=== PATIENT | female | born 1955 | race African-American/Black ===

== ENCOUNTER 2019-06-12 09:01 | Emergency (ER) | payer OTHER, SELFPAY ==
--- OUTSIDE RECORDS SUMMARY | 2019-06-12 09:02 | XMS REPORT | Clinical Summary ---
:1955 Author Organization [facility] Address [address] [place] [address] Care Team Providers Name Role Phone Roni Andres MD Primary Care Provider Allergies Active Allergy Reactions Severity Noted Date Comments Penicillins Itching Medium 04/18/2016 Sulfa (Sulfonamide Antibiotics) Itching Medium 04/18/2016 Medications Medication Sig Dispensed Refills Start Date End Date Status losartan-hydrochloroth Take 1 tablet by 0 Active iazide (HYZAAR) 100-25 mouth daily. mg per tablet Active Problems Problem Noted Date GI bleed 04/18/2016 Social History Tobacco Use Types Packs/Day Years Used Date Never Assessed Sex Assigned at Date Recorded Not on file Job Start Date Occupation Industry Not on file Not on file Not on file Travel History Travel Start Travel End No recent travel history available. Last Filed Vital Signs Not on file Plan of Treatment Health Maintenance Due Date Last Done Comments CERVICAL CANCER SCREENING 1975 BREAST CANCER SCREENING 02/27/2004 SHINGLES VACCINES (#1) 02/27/2004 65+ PNEUMOCOCCAL VACCINE (1 of 2 - PCV13) 2019 INFLUENZA VACCINE 05/06/2019 COLONOSCOPY SCREENING 04/22/2026 04/22/2016 Results Not on fileafter 06/11/2018 Advance Directives For more information, please contact: [phone] Type Date Recorded Patient Member Certification Manager Explanation Advance Directives, Living Will and Medical Power of Aircraft Design Engineer
[2019-06-12 09:32] LABS: Basophils % 1.8 % (0-1.3); Hematocrit 36.7 % (36.0-45.0); Lymphocytes % 48.4 % (15.3-44.8); MPV 9.4 fL (7.6-11.3); RBC Red Blood Cell Count 3.82 M/uL (3.86-4.86)
[2019-06-12 09:33] LABS: Protime INR 1.07
[2019-06-12 11:01] LABS: Albumin 3.7 g/dL (3.4-5.0); Bilirubin Direct 0.2 mg/dL (0-0.2); Bilirubin Total 0.7 mg/dL (0.2-1.0); Potassium 3.5 mmol/L (3.5-5.1); Protein, Total 7.2 g/dL (6.4-8.2)
--- NOTE | 2019-06-12 11:34 | RAD REPORT ---
EXAM DESCRIPTION: CT - Abdomen Pelvis W Contrast - 06/12/2019 11:21 am CLINICAL HISTORY: lower abd pain, bloody stools COMPARISON: CT imaging April 2016 TECHNIQUE: Biphasic, helical CT imaging of the abdomen and pelvis was performed following 100 ml non -ionic IV contrast. No oral contrast administered. All CT scans are performed using dose optimization technique as appropriate and may include automated exposure control or mA/KV adjustment according to patient size. FINDINGS: No suspicious findings in the lung bases. Liver shows fatty infiltration pattern with no focal liver lesion. Liver size is upper normal. No lu creatic abnormality. Gallbladder and biliary tree show no suspicious findings. Spleen is normal size. A 2.3 centimeter round low-density mass is present in the inferior most aspect of the spleen. This i s not clearly seen in 2016. Symmetric renal function is seen with no hydronephrosis or suspicious renal mass. No pyelonephritis o r acute parenchymal process. Nonobstructing calculi seen in the lower pole of the left kidney. No adr enal abnormalities. Rectum and distal sigmoid colon are decompressed. Distal sigmoid anastomotic site shows no wall thick ening or mass. No gross evidence for AA rectal wall mass. No stranding or edema in the perirectal fat . Diverticulosis is minimal. An acute colon process is not evident. The appendix is normal. Stomach a nd small bowel show no acute findings. No free air, free fluid or inflammatory stranding. No hernia, mass or bulky lymphadenopathy. Disc and bony degenerative changes are present. No pathologic bone process seen. Arterial tree calcif ications are present. IMPRESSION: No acute colon finding seen. Diverticulosis is minimal. No abnormality to explain rectal bleeding symptoms. Overall no acute GI process seen. Follow-up colonoscopy would be recommended. Small round low-density mass in the inferior aspect of the spleen. As an isolated finding on this aron dy this is not regarded as significant. Fatty infiltration of the liver.
--- NOTE | 2019-06-12 12:33 | ER ---
Nurse's Notes [facility] Name: Toshia Armenta Age: 64 yrs Sex: Female : 1955 Arrival Date: 06/12/2019 Time: 09:02 Bed 6 Private MD: Diagnosis: Lower Gastrointestinal bleeding;Diverticulosis Presentation: 06/12 09:02 Presenting complaint: EMS states: Pt reports having bloody bowel movements x 3 this ph morning, states that there was bright red blood w/ clots present, denies abdominal pain or N/V, hx of diverticulitis. Transition of care: patient was not received from another setting of care. Onset of symptoms was June 12, 2019. Risk Assessment: Do you want to hurt yourself or someone else? Patient reports no desire to harm self or others. Initial Sepsis Screen: Does the patient meet any 2 criteria? No. Patient's initial sepsis screen is negative. Does the patient have a suspected source of infection? No. Patient's initial sepsis screen is negative. Care prior to arrival: IV initiated. 20 GA, in the right hand. 09:02 Method Of Arrival: EMS: [facility] ph 09:02 Acuity: CHARLI 3 ph Historical: - Allergies: 09:08 Sulfa (Sulfonamide Antibiotics); ph 09:08 PENICILLINS; ph - Home Meds: 09:08 gabapentin 600 mg oral tab 1 tab twice a day [Active]; losartan 100 mg oral tab 1 tab ph once daily [Active]; celecoxib 200 mg Oral cap 1 cap 2 times per day [Active]; - PMHx: 09:08 Diverticulitis; Hypertension; Nerve pain; ph - Immunization history:: Adult Immunizations unknown. - Social history:: Smoking status: Patient/guardian denies using tobacco. - Ebola Screening: : No symptoms or risks identified at this time. - Family history:: not pertinent. - Hospitalizations: : No recent hospitalization is reported. Screenin:15 Abuse screen: Denies threats or abuse. Denies injuries from another. Nutritional ph screening: No deficits noted. Tuberculosis screening: No symptoms or risk factors identified. Fall Risk None identified. Assessment: 09:13 General: Appears in no apparent distress. comfortable, obese, well groomed, Behavior is ph calm, cooperative, appropriate for age, Denies fever, feeling ill. Pain: Denies pain. Neuro: Level of Consciousness is awake, alert, obeys commands, Oriented to person, place, time, situation, Denies weakness dizziness. Cardiovascular: Denies chest pain, lightheadedness, nausea, shortness of breath, Capillary refill < 3 seconds in bilateral fingers Patient's skin is warm and dry. Respiratory: Airway is patent Respiratory effort is even, unlabored, Respiratory pattern is regular, symmetrical, Denies shortness of breath. GI: Abdomen is round non-distended, Reports bloody stool, Patient currently denies nausea, vomiting. Derm: Skin is intact, Skin is pink, warm \T\ dry. Musculoskeletal: Circulation, motion, and sensation intact. Range of motion: intact in all extremities. 10:31 Reassessment: Patient appears in no apparent distress at this time. Patient and/or ph family updated on plan of care and expected duration. Pain level reassessed. Patient is alert, oriented x 3, equal unlabored respirations, skin warm/dry/pink. Pt up to bedside commode for BM, jessi blood noted, pt now resting quietly in bed w. stable VS, denies pain or nausea, awaiting lab results and CT scan, family at bedside. 11:30 Reassessment: Patient appears in no apparent distress at this time. Patient and/or ph family updated on plan of care and expected duration. Pain level reassessed. Patient is alert, oriented x 3, equal unlabored respirations, skin warm/dry/pink. 12:59 Reassessment: Patient appears in no apparent distress at this time. Patient and/or ph family updated on plan of care and expected duration. Pain level reassessed. Patient is alert, oriented x 3, equal unlabored respirations, skin warm/dry/pink. Pt d/c home w/ family. Vital Signs: 09:15 BP 127 / 76; Pulse 84; Resp 18; Temp 97.7; Pulse Ox 96% on R/A; Weight 111.13 kg; ph Height 5 ft. 2 in. (157.48 cm); Pain 0/10; 10:30 BP 123 / 83; Pulse 78; Resp 18; Pulse Ox 95% on R/A; Pain 0/10; ph 09:15 Body Mass Index 44.81 (111.13 kg, 157.48 cm) ph ED Course: 09:02 Patient arrived in ED. ph 09:03 Duane Galloway MD is Attending Physician. rn 09:04 Triage completed. ph 09:10 Radiology exam delayed due to lab results not completed at this time. (BUN/Creatinine). kw1 09:13 Arm band placed on Patient placed in an exam room, on a stretcher. ph 09:14 Patient has correct armband on for positive identification. Placed in gown. Bed in low ph position. Call light in reach. Side rails up X2. credentialer on. Pulse ox on. NIBP on. Door closed. Noise minimized. Warm blanket given. Head of bed elevated. 09:24 Ambar Escoto, RN is Primary Nurse. ph 09:37 Initial lab(s) drawn, by nh, sent to lab. Maintain EMS IV. Dressing intact. 5 09:38 Protime (+inr) Sent. 5 09:38 Ptt, Activated Sent. mh5 09:38 Type And Screen Sent. mh5 09:38 Basic Metabolic Panel Sent. mh5 09:38 CBC with Diff Sent. 5 09:38 Creatinine for Radiology Sent. 5 09:38 Hepatic Function Sent. mh5 09:38 Lipase Sent. mh5 10:36 Radiology exam delayed due to lab results not completed at this time. (BUN/Creatinine). kw1 11:21 CT completed. Patient tolerated procedure well. Patient moved back from CT. mw3 11:22 CT Abd/Pelvis - IV Contrast Only In Process Unspecified. EDMS 13:00 No provider procedures requiring assistance completed. IV discontinued, intact, ph bleeding controlled, No redness/swelling at site. Pressure dressing applied. Administered Medications: No medications were administered Outcome: 12:32 Discharge ordered by . rn 13:00 Discharged to home ambulatory, with family. ph 13:00 Condition: good 13:00 Discharge instructions given to patient, Instructed on discharge instructions, follow up and referral plans. Demonstrated understanding of instructions, follow-up care. 13:01 Patient left the ED. ph Signatures: Dispatcher [employer] EDMS Duane Galloway MD MD rn Hall, Patricia, RN RN ph Martinez, Maria 5 Elizabeth Pike kw1 May Shields mw3 Corrections: (The following items were deleted from the chart) 10:31 09:15 BP 127 / 76; Resp 18bpm; Temp 97.7F; 111.13 kg; Height 5 ft. 2 in.; BMI: 44.8; ph Pain 0/10; ph
--- NOTE | 2019-06-12 12:34 | EDPHYS ---
Physician Documentation [facility] Name: Toshia Armenta Age: 64 yrs Sex: Female : 1955 Arrival Date: 06/12/2019 Time: 09:02 Bed 6 Private MD: ED Physician Duane Galloway HPI: 06/12 09:19 This 64 yrs old Black Female presents to ER via EMS with complaints of Bloody Stools. rn 09:19 The patient presents to the emergency department with rectal bleeding, a small amount, rn bright red blood with bowel movement. Onset: The symptoms/episode began/occurred this morning. Modifying factors: The symptoms are alleviated by nothing, the symptoms are aggravated by. Severity of symptoms: At their worst the symptoms were mild in the emergency department the symptoms are unchanged. The patient has experienced similar episodes in the past. Reports diverticulitis in past, this happens every 6 years or so, reports 3 bloody bowel movements this AM, otherwise feels ok, no sob/chest pain/lightheaded. NO hematemesis, not on blood thinners. . Historical: - Allergies: 09:08 Sulfa (Sulfonamide Antibiotics); ph 09:08 PENICILLINS; ph - Home Meds: 09:08 gabapentin 600 mg oral tab 1 tab twice a day [Active]; losartan 100 mg oral tab 1 tab ph once daily [Active]; celecoxib 200 mg Oral cap 1 cap 2 times per day [Active]; - PMHx: 09:08 Diverticulitis; Hypertension; Nerve pain; ph - Immunization history:: Adult Immunizations unknown. - Social history:: Smoking status: Patient/guardian denies using tobacco. - Ebola Screening: : No symptoms or risks identified at this time. - Family history:: not pertinent. - Hospitalizations: : No recent hospitalization is reported. ROS: 09:19 Constitutional: Negative for fever, chills, and weight loss, Eyes: Negative for injury, rn pain, redness, and discharge, Neck: Negative for injury, pain, and swelling, Cardiovascular: Negative for chest pain, palpitations, and edema, Respiratory: Negative for shortness of breath, cough, wheezing, and pleuritic chest pain, Abdomen/GI: Negative for nausea, vomiting, diarrhea, and constipation, MS/Extremity: Negative for injury and deformity, Skin: Negative for injury, rash, and discoloration, Neuro: Negative for headache, weakness, numbness, tingling, and seizure. Exam: 09:19 Constitutional: This is a well developed, well nourished patient who is awake, alert, rn and in no acute distress. Head/Face: Normocephalic, atraumatic. Eyes: Pupils equal round and reactive to light, extra-ocular motions intact. Lids and lashes normal. Conjunctiva and sclera are non-icteric and not injected. Cornea within normal limits. Periorbital areas with no swelling, redness, or edema. ENT: MMM Cardiovascular: Regular rate and rhythm. No pulse deficits. Respiratory: Lungs have equal breath sounds bilaterally, clear to auscultation. No increased work of breathing, no retractions or nasal flaring. Abdomen/GI: soft, mild LLQ tenderness, no masses, no rebound MS/ Extremity: Pulses equal, no cyanosis. Neurovascular intact. Full, normal range of motion. Equal circumference. Neuro: Awake and alert, GCS 15, oriented to person, place, time, and situation. Cranial nerves II-XII grossly intact. Motor strength 5/5 in all extremities. Sensory grossly intact. Cerebellar exam normal. Vital Signs: 09:15 BP 127 / 76; Pulse 84; Resp 18; Temp 97.7; Pulse Ox 96% on R/A; Weight 111.13 kg; ph Height 5 ft. 2 in. (157.48 cm); Pain 0/10; 10:30 BP 123 / 83; Pulse 78; Resp 18; Pulse Ox 95% on R/A; Pain 0/10; ph 09:15 Body Mass Index 44.81 (111.13 kg, 157.48 cm) ph MDM: 09:03 Patient medically screened. rn 12:27 Differential diagnosis: diverticulitis, diverticulosis, internal hemorrhoids. Data rn reviewed: vital signs, nurses notes, lab test result(s), radiologic studies, and as a result, I will discharge patient. Counseling: I had a detailed discussion with the patient and/or guardian regarding: the historical points, exam findings, and any diagnostic results supporting the discharge/admit diagnosis, lab results, radiology results, the need for outpatient follow up, to return to the emergency department if symptoms worsen or persist or if there are any questions or concerns that arise at home. Special discussion: Based on the history and exam findings, there is no indication for further emergent testing or inpatient evaluation. I discussed with the patient/guardian the need to see the track watchman for further evaluation of the symptoms. ED course: Spoke at length with patient. H/H normal, normal vitals, denies further episodes of bleeding. No acute findings on CT. Most likely either diverticulosis or internal hemorrhoid, no AVM, causing bleed. NO GI here to observe patient, and with normal w/u cannot get her transferred to another hospital. She has seen Dr. vasquez in past, I checked and he is out of town. I also checked with Dr. Cherry to see if he could scope her and states not yet set up for scopes at this hospital. Gave strict return precautions. Daughter is nurse and all questions answered. . 06/12 09:05 Order name: Basic Metabolic Panel; Complete Time: 11:09 rn 06/12 09:05 Order name: CBC with Diff; Complete Time: 10:15 rn 06/12 09:05 Order name: Creatinine for Radiology; Complete Time: 11: rn 06/12 09:05 Order name: Hepatic Function; Complete Time: 11: rn 06/12 09:05 Order name: Lipase; Complete Time: 11: rn 06/12 09:06 Order name: Type And Screen rn 06/12 09:05 Order name: IV Saline Lock; Complete Time: 09:13 rn 06/12 09:05 Order name: Labs collected and sent; Complete Time: 09:13 rn 06/12 09:05 Order name: CT Abd/Pelvis - IV Contrast Only; Complete Time: 11:36 rn 06/12 09:06 Order name: Protime (+inr); Complete Time: 10:15 rn 06/12 09:06 Order name: Ptt, Activated; Complete Time: 10:15 rn 06/12 09:34 Order name: Labs - recollect needed; Complete Time: 10:30 bd Administered Medications: No medications were administered Disposition: 06/12/19 12:32 Discharged to Home. Impression: Lower Gastrointestinal bleeding, Diverticulosis. - Condition is Stable. - Discharge Instructions: Diverticulosis, Gastrointestinal Bleeding. - Medication Reconciliation Form, Thank You Letter, Antibiotic Education, Prescription Opioid Use form. - Follow up: Private Physician; When: As needed; Reason: Recheck today's complaints, Re-evaluation by your physician. - Problem is new. - Symptoms have improved. Signatures: Dispatcher [employer] EDMS Demi Edouard Duane Redding MD MD rn Hall, Patricia, RN RN ph Corrections: (The following items were deleted from the chart) 12:29 09:19 Constitutional: This is a well developed, well nourished patient who is awake, rn alert, and in no acute distress. Head/Face: Normocephalic, atraumatic. Eyes: Pupils equal round and reactive to light, extra-ocular motions intact. Lids and lashes normal. Conjunctiva and sclera are non-icteric and not injected. Cornea within normal limits. Periorbital areas with no swelling, redness, or edema. ENT: MMM Cardiovascular: Regular rate and rhythm. No pulse deficits. Respiratory: Lungs have equal breath sounds bilaterally, clear to auscultation. No increased work of breathing, no retractions or nasal flaring. Abdomen/GI: soft, mild LLQ tenderness, no masses, no rebound MS/ Extremity: Pulses equal, no cyanosis. Neurovascular intact. Full, normal range of motion. Equal circumference. Neuro: Awake and alert, GCS 15, oriented to person, place, time, and situation. Cranial nerves II-XII grossly intact. Motor strength 5/5 in all extremities. Sensory grossly intact. Cerebellar exam normal. rn 12:32 12:27 ED course: Spoke at length with patient. H/H normal, normal vitals, denies rn further episodes of bleeding. No acute findings on CT. Most likely either diverticulosis or internal hemorrhoid, no AVM, causing bleed. . rn 13:01 12:32 06/12/2019 12:32 Discharged to Home. Impression: Lower Gastrointestinal bleeding; ph Diverticulosis. Condition is Stable. Forms are Medication Reconciliation Form, Thank You Letter, Antibiotic Education, Prescription Opioid Use. Follow up: Private Physician; When: As needed; Reason: Recheck today's complaints, Re-evaluation by your physician. Problem is new. Symptoms have improved. rn
[2019-06-12 14:12] VITALS: TEMP 97.7
[2019-06-12 14:13] VITALS: BP 123/83; O2SAT 95
== END 2019-06-12 13:01 | disposition home or self-care (01) ==
LOC: ER 09:01
DX: K57.90 Diverticulosis of intestine, part unspecified, without perforation or abscess without bleeding (principal); I10 Essential (primary) hypertension; Z88.0 Allergy status to penicillin; Z88.2 Allergy status to sulfonamides
CPT/HCPCS: 36415; 74177; 80048; 80076; 83690; 85025; 85610; 85730; 86850; 86900; 86901; 99285; Q9967

== ENCOUNTER 2020-02-14 12:04 | Inpatient (IN) | payer OTHER ==
--- OUTSIDE RECORDS SUMMARY | 2020-02-14 12:08 | XMS REPORT | Clinical Summary ---
:1955 Author Organization [facility] Address [address] [place] [address] Care Team Providers Name Role Phone Roni Andres MD Primary Care Provider Allergies Active Allergy Reactions Severity Noted Date Comments Penicillins Itching Medium 04/18/2016 Sulfa (Sulfonamide Antibiotics) Itching Medium 6 Medications Medication Sig Dispensed Refills Start Date [...] of 2 - PCV13) 2019 INFLUENZA VACCINE 05/06/2020 COLONOSCOPY SCREENING 04/22/2026 04/22/2016 Results Not on fileafter 02/13/2019 Advance Directives For more information, please contact: [phone] Type Date Recorded Patient Wrapping Clerk Explanati on Advance Directives, Living Will and Medical Power of Gas Appliance Adjuster
[2020-02-14 13:43] LABS: Absolute Lymphocytes (CBC) 0.8 K/uL (0.7-4.9); Basophils % 0.4 % (0-1.3); Hematocrit 37.7 % (36.0-45.0); Lymphocytes % 14.2 % (15.3-44.8); MPV 9.1 fL (7.6-11.3); RBC Red Blood Cell Count 3.94 M/uL (3.86-4.86)
[2020-02-14 13:49] LABS: Protime INR 1.14
[2020-02-14 13:58] LABS: ALT/SGPT 39 U/L (12-78); AST/SGOT 51 U/L (15-37); Albumin 3.3 g/dL (3.4-5.0); Alkaline Phosphatase 68 U/L (45-117); Amylase 98 U/L (25-115); BUN Blood Urea Nitrogen 55 mg/dL (7-18); Bicarbonate 28 mmol/L (21-32); Bilirubin Direct 0.2 mg/dL (0-0.2); Bilirubin Total 0.5 mg/dL (0.2-1.0); CKMB Creatine Kinase MB < 1.0 ng/mL (0.3-3.6); Creatine Phosphokinase 218 U/L (26-192); Glucose Level 131 mg/dL (74-106); Lipase 138 U/L (73-393); Potassium 3.6 mmol/L (3.5-5.1); Protein, Total 8.6 g/dL (6.4-8.2); Sodium Level 137 mmol/L (136-145); Troponin (Emerg Dept Use Only) < 0.02 ng/mL (0.0-0.045)
[2020-02-14] MEDS ORDERED: ACETAMINOPHEN 500 MG TAB ONE (14:08)
[2020-02-14] MEDS ORDERED: IBUPROFEN 400 MG TAB ONE (14:08)
[2020-02-14] MEDS ORDERED: NA CHLORIDE 0.9% 3,000 ML ONE (14:08)
[2020-02-14] MEDS ORDERED: IBUPROFEN 200 MG TAB PO ONE (14:08)
[2020-02-14] MEDS ORDERED: CEFTRIAXONE/SWI 1gm 2 GM/20 ML SYR ONE (14:08)
[2020-02-14] MEDS ORDERED: AZITHROMYCIN IV 500 MG in NA CHLORIDE 0.9% 250 ML IVPB ONE (14:15)
--- NOTE | 2020-02-14 14:25 | RAD REPORT ---
EXAM DESCRIPTION: Kristine Single View02/14/2020 2:12 pm CLINICAL HISTORY: sob COMPARISON: 2016 FINDINGS: [id number] bilateral pulmonary opacities. The heart is mildly enlarged IMPRESSION: These findings may indicate CHF
--- NOTE | 2020-02-14 14:32 | ER ---
Nurse's Notes [facility] Name: Toshia Armenta Age: 64 yrs Sex: Female : 1955 Arrival Date: 02/14/2020 Time: 12:09 Bed 18 Private MD: Roni Galvan R Diagnosis: Dyspnea;Hypoxemia;Pneumonia due to other specified bacteria-bilateral pna;Fever, unspecified;Unspecified kidney failure;Coronavirus as the cause of diseases classified elsewhere-covid 19 , bilateral pna Presentation: 02/13 12:53 Chief complaint: Patient states: Weakness, Fever, Cough and SOB x 4 days. Reports ca1 diarrhea x 2 days. Tested for Covid -19 4 days ago, pending result. Reports family living with pt tested POSITIVE for Covid-19. Coronavirus screen: Surgical mask placed on patient. Patient moved to private room, placed in contact and droplet isolation with eye protection until further assessment. Patient reports a cough. Patient reports shortness of breath or difficulty breathing. Patient reports a measured and/or subjective temperature greater than 100.4F. Patient denies travel on a cruise ship or to a country the [facility] currently lists as an affected area. Patient reports contact with known and/or suspected case of COVID-19. Ebola Screen: Patient negative for fever greater than or equal to 101.5 degrees Fahrenheit, and additional compatible Ebola Virus Disease symptoms Patient denies exposure to infectious person. Patient denies travel to an Ebola-affected area in the 21 days before illness onset. No symptoms or risks identified at this time. Initial Sepsis Screen: Does the patient meet any 2 criteria? RR > 20 per min. Temp <36.0*C (96.8*F)) or > 38.3*C (100.9*F). Yes Does the patient have a suspected source of infection? Yes: Productive cough/pneumonia If YES to both, name of provider notified: Meño Carrasco MD. Risk Assessment: Do you want to hurt yourself or someone else? Patient reports no desire to harm self or others. Onset of symptoms was February 14, 2020. 12:53 Method Of Arrival: Wheelchair ca1 12:53 Acuity: CHARLI 2 ca1 Triage Assessment: 13:05 Respiratory: Onset: The symptoms/episode began/occurred "over a week now", the patient tw2 has severe shortness of breath. Historical: - Allergies: 12:57 PENICILLINS; ca1 12:57 Sulfa (Sulfonamide Antibiotics); ca1 - PMHx: 12:57 Diverticulitis; Hypertension; nerve pain; ca1 - Immunization history:: Adult Immunizations up to date. - Social history:: Smoking status: Patient denies any tobacco usage or history of. Screenin:06 Abuse screen: Denies threats or abuse. Nutritional screening: No deficits noted. tw2 Tuberculosis screening: No symptoms or risk factors identified. Fall Risk None identified. Assessment: 13:10 General: Appears uncomfortable, obese, Behavior is calm, cooperative, appropriate for tw2 age. Pain: Denies pain. Neuro: Level of Consciousness is awake, alert, obeys commands, Oriented to person, place, time, situation. Cardiovascular: Rhythm is. Cardiovascular: Heart tones S1 S2 Patient's skin is warm and dry. Respiratory: Reports shortness of breath at rest on exertion since "for a week now" cough that is productive, Airway is patent Respiratory effort is even, labored, Respiratory pattern is regular, tachypnea Breath sounds are diminished bilaterally. GI: Abdomen is round obese, Bowel sounds present X 4 quads. : No signs and/or symptoms were reported regarding the genitourinary system. EENT: Reports nasal congestion nasal discharge. Derm: No signs and/or symptoms reported regarding the dermatologic system. Musculoskeletal: Range of motion: intact in all extremities. 13:23 Reassessment: Pt reports he had COVID-19 test completed on at [facility] aa5 outpatient. Spoke to [facility] Saff and they stated to contact [facility] for results. Spoke to [facility] and they stated results are back and they will contact patient with result in just a few minutes. . 13:42 Reassessment: Faxed Medical Release of Information to [facility] aa requesting COVID-19 result. . 14:32 Reassessment: Spoke to [facility] and stated they did not receive fax. aa5 Medical Release of Information requesting COVID-19 result was faxed to [facility].. 15:30 Reassessment: No changes from previously documented assessment. Patient and/or family tw2 updated on plan of care and expected duration. Pain level reassessed. 16:01 Reassessment: Fax received from Ricky blackwell [facility], COVID-19 result: aa5 detected, positive. BROOM BUNDLER notified. . 16:30 Reassessment: No changes from previously documented assessment. Patient and/or family tw2 updated on plan of care and expected duration. Pain level reassessed. 17:11 Reassessment: No changes from previously documented assessment. Patient and/or family tw2 updated on plan of care and expected duration. Pain level reassessed. 17:54 Reassessment: No changes from previously documented assessment. Patient and/or family tw2 updated on plan of care and expected duration. Pain level reassessed. Vital Signs: 12:53 BP 102 / 51; Pulse 81; Resp 22 S; Temp 103.1; Pulse Ox 84% on R/A; Weight 113.4 kg (R); ca1 Height 5 ft. 6 in. (167.64 cm) (R); 13:40 BP 105 / 58; Pulse 76; Resp 17; Pulse Ox 97% on 2 lpm NC; tw2 14:30 BP 112 / 75; Pulse 76; Resp 17; Pulse Ox 95% on 2 lpm NC; tw2 15:30 BP 99 / 70; Pulse 77; Resp 20; Temp 100(O); Pulse Ox 100% on 2 lpm NC; tw2 16:30 BP 103 / 60; Pulse 73; Resp 19; Pulse Ox 96% on 2 lpm NC; tw2 17:30 BP 100 / 59; Pulse 69; Resp 18; Pulse Ox 97% on 2 lpm NC; tw2 18:30 BP 102 / 57; Pulse 70; Resp 17; Pulse Ox 95% on 2 lpm NC; tw2 12:53 Body Mass Index 40.35 (113.40 kg, 167.64 cm) ca1 ED Course: 12:09 Patient arrived in ED. as 12:10 Roni Galvan MD is Private Physician. as 12:57 Triage completed. ca1 12:57 Arm band placed on right wrist. ca1 12:57 Bed in low position. Call light in reach. Side rails up X 1. plant electrical engineer on. Pulse tw2 ox on. NIBP on. Head of bed elevated. 12:58 Meño Carrasco MD is Attending Physician. cira 13:10 No provider procedures requiring assistance completed. Inserted saline lock: 20 gauge tw2 in left antecubital area, using aseptic technique. Blood collected. Oxygen administration via nasal cannula \\T\\ 2L/min. 13:24 Chiara Be, RN is Primary Nurse. tw2 14:12 Chest Single View XRAY In Process Unspecified. EDNM 14:30 Álvaro Brasher DO is Hospitalizing Provider. [facility] 15:22 Ricky with [facility] will send covid swab results. aa5 18:55 Report given to NORMAN Neil. tw2 19:24 Patient admitted, IV remains in place. tw2 Administered Medications: 14:45 Drug: NS 0.9% (30 ml/kg) 30 ml/kg Route: IV; Rate: bolus; Site: right antecubital; tw2 19:22 Follow up: IV Status: Infusion continued upon admission; IV Intake: 2000ml tw2 14:45 Drug: Rocephin 2 grams Route: IV; Rate: per protocol; Site: right antecubital; tw2 14:52 Follow up: Response: No adverse reaction; IV Status: Completed infusion tw2 14:45 Drug: Tylenol 1000 mg Route: PO; tw2 19:23 Follow up: Response: No adverse reaction tw2 14:45 Drug: Motrin 600 mg Route: PO; tw2 19:22 Follow up: Response: No adverse reaction; Temperature is decreased tw2 14:52 Drug: Zithromax 500 mg Route: IVPB; Infused Over: 1 hrs; Site: left antecubital; tw2 15:52 Follow up: Response: No adverse reaction; IV Status: Completed infusion tw2 Intake: 19:22 IV: 2000ml; Total: 2000ml. tw2 Outcome: 14:31 Decision to Hospitalize by Provider. [facility] 19:23 Admitted to Med/surg accompanied by nurse, via wheelchair, with oxygen, Report called tw2 to NORMAN Neil 19:23 Condition: stable 19:23 Instructed on the need for admit. 19:24 Patient left the ED. tw2 Signatures: Dispatcher [employer] EDNM Meño Carrasco MD MD cha Martinez, Amelia as Calderon, Audri RN RN aa5 Chiara Be, RN RN tw2 Roxana Lambert RN RN ca1 Corrections: (The following items were deleted from the chart) 12:58 12:53 Initial Sepsis Screen: Does the patient meet any 2 criteria? No. Patient's ca1 initial sepsis screen is negative. Does the patient have a suspected source of infection? No. Patient's initial sepsis screen is negative. ca1 13:00 12:53 BP 102 / 51; Pulse 81bpm; Resp 19bpm; Spontaneous; Pulse Ox 84% RA; Temp 103.1F; ca1 113.4 kg Reported; Height 5 ft. 6 in. Reported; BMI: 40.3; ca1 13:27 13:26 Reassessment: aa5 aa5 16:06 13:42 Reassessment: Faxed Medical Release of Information to [place] [id number] requesting COVID-19 result. . aa5 16:14 13:42 Reassessment: Faxed Medical Release of Information to [place] [id number] requesting COVID-19 result. . aa5
--- NOTE | 2020-02-14 14:32 | EDPHYS ---
Physician Documentation [facility] Name: Toshia Armenta Age: 64 yrs Sex: Female : 1955 Arrival Date: 02/14/2020 Time: 12:09 Bed 18 Private MD: Roni Galvan R ED Physician Meño Carrasco HPI: 02/13 13:53 This 64 yrs old Black Female presents to ER via Wheelchair with complaints of Shortness cira Of Breath, Vomiting, Fever, waiting on COVID results to come back. 13:53 The patient has shortness of breath at rest, with light activity. Onset: The cira symptoms/episode began/occurred 4 day(s) ago. Duration: The symptoms are continuous. The patient's shortness of breath is aggravated by coughing, supine position, walking, is alleviated by elevating head, application of supplemental oxygen. Associated signs and symptoms: Pertinent positives: non-productive cough, dizziness, fever. Severity of symptoms: At their worst the symptoms were moderate in the emergency department the symptoms are unchanged. The patient has experienced similar episodes in the past, multiple times. Historical: - Allergies: 12:57 PENICILLINS; ca1 12:57 Sulfa (Sulfonamide Antibiotics); ca1 - PMHx: 12:57 Diverticulitis; Hypertension; nerve pain; ca1 - Immunization history:: Adult Immunizations up to date. - Social history:: Smoking status: Patient denies any tobacco usage or history of. ROS: 13:54 Eyes: Negative for injury, pain, redness, and discharge, ENT: Negative for injury, cira pain, and discharge, Neck: Negative for injury, pain, and swelling, Cardiovascular: Negative for chest pain, palpitations, and edema, Abdomen/GI: Negative for abdominal pain, nausea, vomiting, diarrhea, and constipation, Back: Negative for injury and pain, : Negative for injury, bleeding, discharge, and swelling, MS/Extremity: Negative for injury and deformity, Skin: Negative for injury, rash, and discoloration, Neuro: Negative for headache, weakness, numbness, tingling, and seizure, Psych: Negative for depression, anxiety, suicide ideation, homicidal ideation, and hallucinations, Allergy/Immunology: Negative for hives, rash, and allergies, Endocrine: Negative for neck swelling, polydipsia, polyuria, polyphagia, and marked weight changes, Hematologic/Lymphatic: Negative for swollen nodes, abnormal bleeding, and unusual bruising. 13:54 Constitutional: Positive for fever. 13:54 Respiratory: Positive for cough, shortness of breath, at rest. Exam: 13:54 Constitutional: This is a well developed, well nourished patient who is awake, alert, cira and in no acute distress. Head/Face: Normocephalic, atraumatic. Eyes: Pupils equal round and reactive to light, extra-ocular motions intact. Lids and lashes normal. Conjunctiva and sclera are non-icteric and not injected. Cornea within normal limits. Periorbital areas with no swelling, redness, or edema. ENT: Nares patent. No nasal discharge, no septal abnormalities noted. Tympanic membranes are normal and external auditory canals are clear. Oropharynx with no redness, swelling, or masses, exudates, or evidence of obstruction, uvula midline. Mucous membranes moist. Neck: Trachea midline, no thyromegaly or masses palpated, and no cervical lymphadenopathy. Supple, full range of motion without nuchal rigidity, or vertebral point tenderness. No Meningismus. Chest/axilla: Normal chest wall appearance and motion. Nontender with no deformity. No lesions are appreciated. Abdomen/GI: Soft, non-tender, with normal bowel sounds. No distension or tympany. No guarding or rebound. No evidence of tenderness throughout. Back: No spinal tenderness. No costovertebral tenderness. Full range of motion. Skin: Warm, dry with normal turgor. Normal color with no rashes, no lesions, and no evidence of cellulitis. MS/ Extremity: Pulses equal, no cyanosis. Neurovascular intact. Full, normal range of motion. Neuro: Awake and alert, GCS 15, oriented to person, place, time, and situation. Cranial nerves II-XII grossly intact. Motor strength 5/5 in all extremities. Sensory grossly intact. Cerebellar exam normal. Normal gait. Psych: Awake, alert, with orientation to person, place and time. Behavior, mood, and affect are within normal limits. 13:54 Cardiovascular: Rate: tachycardic, Rhythm: regular, Pulses: Pulses are 4+ in bilateral radial, brachial, femoral, popliteal, posterior tibial and and dorsalis pedis arteries.. Heart sounds: normal, Edema: is not appreciated, JVD: is not appreciated. 13:54 Musculoskeletal/extremity: DVT Exam: No signs of deep vein thrombosis. no pain, no swelling, no tenderness, negative Homans' sign noted on exam, no appreciated bluish discoloration, no erythema, no increased warmth. 14:54 ECG was reviewed by the Attending Physician. [facility] Vital Signs: 12:53 BP 102 / 51; Pulse 81; Resp 22 S; Temp 103.1; Pulse Ox 84% on R/A; Weight 113.4 kg (R); ca1 Height 5 ft. 6 in. (167.64 cm) (R); 13:40 BP 105 / 58; Pulse 76; Resp 17; Pulse Ox 97% on 2 lpm NC; tw2 14:30 BP 112 / 75; Pulse 76; Resp 17; Pulse Ox 95% on 2 lpm NC; tw2 15:30 BP 99 / 70; Pulse 77; Resp 20; Temp 100(O); Pulse Ox 100% on 2 lpm NC; tw2 16:30 BP 103 / 60; Pulse 73; Resp 19; Pulse Ox 96% on 2 lpm NC; tw2 17:30 BP 100 / 59; Pulse 69; Resp 18; Pulse Ox 97% on 2 lpm NC; tw2 18:30 BP 102 / 57; Pulse 70; Resp 17; Pulse Ox 95% on 2 lpm NC; tw2 12:53 Body Mass Index 40.35 (113.40 kg, 167.64 cm) ca1 MDM: 12:58 Patient medically screened. [facility] 13:57 Data reviewed: vital signs, nurses notes, lab test result(s), EKG, radiologic studies, [facility] plain films. 13:57 Differential diagnosis: asthma, Bronchitis CHF exacerbation, Chronic Obstructive cira Pulmonary Disease viral Infection, bacterial infection, bronchitis, pneumonia pneumonia, Pneumothorax pulmonary edema, reactive airway disease, Sepsis. Antibiotic administration: Rocephin and Zithromax given. Differential Diagnosis altered mental status, sepsis. Immunization status: Pneumococcal vaccine: Influenza vaccine: Data interpreted: optical coating technician: rate is 81 beats/min, rhythm is normal sinus rhythm, Pulse oximetry: on 4L(s) per nasal canula, is 96 %. Counseling: I had a detailed discussion with the patient and/or guardian regarding: the historical points, exam findings, and any diagnostic results supporting the discharge/admit diagnosis, lab results, radiology results, the need for further work-up and treatment in the hospital. 14:26 Test interpretation: by ED physician or midlevel provider: ECG, plain radiologic cira studies. ED course: covid 19 positive exposure. 14:53 ED course: covid 19 positive outpatient, hypoxia, bilateral pna. cira 15:49 ED course: bilateral covid 19 confirmed pneumonia. [facility] 02/13 12:59 Order name: Amylase, Serum; Complete Time: 14:23 ca1 02/13 12:59 Order name: Basic Metabolic Panel; Complete Time: 14:23 ca1 02/13 12:59 Order name: Blood Culture Adult (2) [facility] 02/13 12:59 Order name: CBC with Diff; Complete Time: 14:23 ca1 02/13 12:59 Order name: Ckmb; Complete Time: 14:23 ca1 02/13 12:59 Order name: CPK; Complete Time: 14:23 ca1 02/13 12:59 Order name: Lactate; Complete Time: 15:22 ca1 02/13 12:59 Order name: LFT's; Complete Time: 14:23 [facility] 02/13 12:59 Order name: Lipase; Complete Time: 14: [facility] 02/13 12:59 Order name: Procalcitonin; Complete Time: 14:23 ca1 02/13 12:59 Order name: Protime (+inr); Complete Time: 14:23 [facility] 02/13 12:59 Order name: Ptt, Activated; Complete Time: 14:23 ca1 02/13 12:59 Order name: Troponin (emerg Dept Use Only); Complete Time: 14:23 [facility] 02/13 12:59 Order name: Urine Microscopic Only [facility] 02/13 13:52 Order name: Strep; Complete Time: 15:46 [facility] 02/13 13:52 Order name: Flu; Complete Time: 15:46 [facility] 02/13 13:52 Order name: COVID-19 [facility] 02/13 15:39 Order name: Basic Metabolic Panel EDMS 02/13 15:39 Order name: Basic Metabolic Panel ED[facility] 02/13 15:39 Order name: Basic Metabolic Panel [facility] 02/13 15:39 Order name: CBC with Automated Diff [facility] 02/13 15:39 Order name: CBC with Automated Diff [facility] 02/13 15:39 Order name: CBC with Automated Diff [facility] 02/13 15:39 Order name: Magnesium [facility] 02/13 15:39 Order name: Magnesium [facility] 02/13 15:46 Order name: Throat Culture [facility] 02/13 15:47 Order name: BNP [facility] 02/13 15:55 Order name: Lactic Dehydrogenase [facility] 02/13 15:55 Order name: Ur Protein [facility] 02/13 15:55 Order name: Uric Acid [facility] 02/13 12:59 Order name: Chest Single View XRAY; Complete Time: 14:32 [facility] 02/13 12:59 Order name: Cardiac monitoring; Complete Time: 13:42 [facility] 02/13 12:59 Order name: EKG - Nurse/Tech; Complete Time: 15:02 [facility] 02/13 12:59 Order name: IV Saline Lock - Large Bore; Complete Time: 13:42 [facility] 02/13 12:59 Order name: Labs collected and sent; Complete Time: 13:42 [facility] 02/13 12:59 Order name: O2 Per Protocol; Complete Time: 13:42 [facility] 02/13 12:59 Order name: O2 Sat Monitoring; Complete Time: 13:42 [facility] 02/13 13:52 Order name: Oxygen; Complete Time: 13:54 [facility] 02/13 15:39 Order name: CONS Physician Consult [facility] 02/13 15:39 Order name: CONS Physician Consult [facility] 02/13 15:39 Order name: Heart Healthy [facility] 02/13 15:55 Order name: Renal Ultrasound-Complete [facility] EC:54 Rate is 80 beats/min. Rhythm is regular. QRS Caroline is Normal. DE interval is normal. QRS cira interval is normal. QT interval is normal. No Q waves. T waves are Normal. No ST changes noted. Clinical impression: Normal ECG and No evidence of ischemia. Interpreted by me. Reviewed by me. Administered Medications: 14:45 Drug: NS 0.9% (30 ml/kg) 30 ml/kg Route: IV; Rate: bolus; Site: right antecubital; tw2 19:22 Follow up: IV Status: Infusion continued upon admission; IV Intake: 2000ml tw2 14:45 Drug: Rocephin 2 grams Route: IV; Rate: per protocol; Site: right antecubital; tw2 14:52 Follow up: Response: No adverse reaction; IV Status: Completed infusion tw2 14:45 Drug: Tylenol 1000 mg Route: PO; tw2 19:23 Follow up: Response: No adverse reaction tw2 14:45 Drug: Motrin 600 mg Route: PO; tw2 19:22 Follow up: Response: No adverse reaction; Temperature is decreased tw2 14:52 Drug: Zithromax 500 mg Route: IVPB; Infused Over: 1 hrs; Site: left antecubital; tw2 15:52 Follow up: Response: No adverse reaction; IV Status: Completed infusion tw2 Disposition: 02/14/20 14:31 Hospitalization ordered by Álvaro Brasher for Inpatient Admission. Preliminary diagnosis are Dyspnea, Hypoxemia, Pneumonia due to other specified bacteria - bilateral pna, Fever, unspecified, Unspecified kidney failure, Coronavirus as the cause of diseases classified elsewhere - covid 19 , bilateral pna. - Bed requested for Telemetry/MedSurg (Inpatient). - Status is Inpatient Admission. tw2 - Condition is Fair. - Problem is new. - Symptoms have improved. Signatures: Dispatcher [employer] EDHolli Hernandez RN RN dw Anderson, Corey, MD MD cha Calderon, Audri, RN RN aa5 Tejas Mcintosh FNP-C NICO-Cla1 Chiara Be RN RN tw2 Roxana Lambert RN RN ca1 Corrections: (The following items were deleted from the chart) 13:42 12:59 Accucheck ordered. ca1 tw2 15:48 14:31 Hospitalization Ordered by Álvaro Brasher DO for Inpatient Admission. Preliminary cira diagnosis is Dyspnea; Hypoxemia; Pneumonia due to other specified bacteria - bilateral pna; Fever, unspecified. Bed requested for Telemetry/MedSurg (Inpatient). Status is Inpatient Admission. Condition is Fair. Problem is new. Symptoms have improved. cira 15:49 15:48 02/14/2020 14:31 Hospitalization Ordered by Álvaro Brasher DO for Inpatient cira Admission. Preliminary diagnosis is Dyspnea; Hypoxemia; Pneumonia due to other specified bacteria - bilateral pna; Fever, unspecified; Unspecified kidney failure. Bed requested for Telemetry/MedSurg (Inpatient). Status is Inpatient Admission. Condition is Fair. Problem is new. Symptoms have improved. cira 16:36 15:49 02/14/2020 14:31 Hospitalization Ordered by Álvaro Brasher DO for Inpatient aa5 Admission. Preliminary diagnosis is Dyspnea; Hypoxemia; Pneumonia due to other specified bacteria - bilateral pna; Fever, unspecified; Unspecified kidney failure; Coronavirus as the cause of diseases classified elsewhere - covid 19 , bilateral pna. Bed requested for Telemetry/MedSurg (Inpatient). Status is Inpatient Admission. Condition is Fair. Problem is new. Symptoms have improved. cira 17:17 16:36 02/14/2020 14:31 Hospitalization Ordered by Álvaro Brasher DO for Inpatient dw Admission. Preliminary diagnosis is Dyspnea; Hypoxemia; Pneumonia due to other specified bacteria - bilateral pna; Fever, unspecified; Unspecified kidney failure; Coronavirus as the cause of diseases classified elsewhere - covid 19 , bilateral pna. Bed requested for [facility] ER HOLD. Status is Inpatient Admission. Condition is Fair. Problem is new. Symptoms have improved. aa5 19:24 17:17 02/14/2020 14:31 Hospitalization Ordered by Álvaro Brasher DO for Inpatient tw2 Admission. Preliminary diagnosis is Dyspnea; Hypoxemia; Pneumonia due to other specified bacteria - bilateral pna; Fever, unspecified; Unspecified kidney failure; Coronavirus as the cause of diseases classified elsewhere - covid 19 , bilateral pna. Bed requested for Telemetry/MedSurg (Inpatient). Status is Inpatient Admission. Condition is Fair. Problem is new. Symptoms have improved. dw
[2020-02-14] MEDS ORDERED: NA CHLORIDE 0.9% 1,000 ML IV SCH (16:00)
--- NOTE | 2020-02-14 16:14 | P.HP ---
Certification for Inpatient With expected LOS: >2 Midnights Patient will require the following post-hospital care: None Practitioner: I am a practitioner with admitting privileges, knowledge of patient current condition, hospital course, and medical plan of care. Services: Services provided to patient in accordance with Admission requirements found in Title 42 Section 412.3 of the Code of Federal Regulations <Tejas Mcintosh - Last Filed: 02/14/20 16:07> Patient admitted to: Inpatient With expected LOS: >2 Midnights <Álvaro Brasher - Last Filed: 02/14/20 18:03> Patient History Date of Service: 02/14/20 Reason for admission: Hypoxia, COVID-19 History of Present Illness: 64-year-old female who presents emergency department with fever and shortness of breath. Patient reports that she has been having shortness of breath and cough the last 2 weeks and fever for the last 1 week. Patient reports that multiple family members of herself test positive for Sandra virus 19. Patient was concerned that her fevers persisted and she is feeling so much more short of breath so she presents the emergency department. Upon arrival to the emergency department patient was reported to have a room air oxygen saturation of 84%. Patient was placed on oxygen and worked up. Patient was found to have bilateral opacities on her chest x-ray. At this time ER provider reached out to admit patient for further evaluation management. When I saw the patient in the emergency department she appeared calm and cooperative. Not in any respiratory distress. Patient does not appear septic. Patient states multiple of her family members have tested positive for Sandra virus 19. is also being admitted. We will admit patient for further evaluation management. - Past Medical/Surgical History Diabetic: No -: HTN -: diverticulitis -: thyroidectomy -: hysterectomy -: colon resection -: heart cath -: cyst removal from breast (benign) Psychosocial/ Personal History: Patient lives at home with her . - Family History Father -: Lung disease, Cancer Mother -: Heart disease, Lung disease, Stroke Sister -: Hypertension, Diabetes - Social History Smoking Status: Never smoker Alcohol use: Yes CD- Drugs: No Caffeine use: Yes <Tejas Mcintosh - Last Filed: 02/14/20 16:07> Date of Service: 02/14/20 History of Present Illness: Patient is seen by a nurse practitioner. Case discussed at length and agree with plan of care. Notes, exam, plan of care reviewed. Home medications list reviewed: Yes - Past Medical/Surgical History -: History of diverticulitis - Social History Place of Residence: Home <Álvaro Brasher - Last Filed: 02/14/20 18:03> Allergies Penicillins Allergy (Intermediate, Verified 03/02/15 19:38) Shortness of breath Sulfa (Sulfonamide Antibiotics) Allergy (Verified 03/02/15 19:38) Itching Home Medications: Losartan/Hydrochlorothiazide [Losartan-Hctz 100-25 mg Tab] 1 each PO DAILY 04/12/16 Review of Systems General: Fever Eyes: Unremarkable ENT: Unremarkable Respiratory: Cough, Shortness of Breath Cardiovascular: Unremarkable Gastrointestinal: Unremarkable Genitourinary: Unremarkable Musculoskeletal: Unremarkable Neurological: Unremarkable Lymphatics: Unremarkable <Tejas Mcintosh - Last Filed: 02/14/20 16:07> Physical Examination - Physical Exam General: Alert, In no apparent distress, Oriented x3 HEENT: Atraumatic, Normocephalic Neck: Supple Respiratory: Diminished, Rhonchi/gurgles Cardiovascular: No edema, Normal S1 S2 Capillary refill: <2 Seconds Gastrointestinal: Normal bowel sounds, Soft and benign Musculoskeletal: No clubbing Integumentary: No rashes Neurological: Normal speech - Studies Laboratory Data (last 24 hrs) 02/14/20 13:10: PT 13.4 H, INR 1.14, APTT 35.3 02/14/20 13:10: WBC 5.6, Hgb 12.2, Hct 37.7, Plt Count 191 02/14/20 13:10: Sodium 137, Potassium 3.6, BUN 55 H, Creatinine 1.76 H, Glucose 131 H, Total Bilirubin 0.5, AST 51 H, ALT 39, Alkaline Phosphatase 68, Amylase 98, Lipase 138 Microbiology Data (last 24 hrs): 02/14/20 14:37 Throat Group A Streptococcus Rapid Screen - Final 02/14/20 14:37 Nasopharnyx Influenza Type A Antigen Screen - Final 02/14/20 14:37 Nasopharnyx Influenza Type B Antigen Screen - Final <Tejas Mcintosh - Last Filed: 02/14/20 16:07> - Physical Exam Other Physical/Emotional Findings: Agree with examination. - Studies Laboratory Data (last 24 hrs) 02/14/20 13:10: PT 13.4 H, INR 1.14, APTT 35.3 02/14/20 13:10: WBC 5.6, Hgb 12.2, Hct 37.7, Plt Count 191 02/14/20 13:10: Sodium 137, Potassium 3.6, BUN 55 H, Creatinine 1.76 H, Glucose 131 H, Total Bilirubin 0.5, AST 51 H, ALT 39, Alkaline Phosphatase 68, Amylase 98, Lipase 138 Microbiology Data (last 24 hrs): 02/14/20 14:37 Throat Group A Streptococcus Rapid Screen - Final 02/14/20 14:37 Nasopharnyx Influenza Type A Antigen Screen - Final 02/14/20 14:37 Nasopharnyx Influenza Type B Antigen Screen - Final <Álvaro Brasher - Last Filed: 02/14/20 18:03> Assessment and Plan - Plan Assessment Hypoxia secondary to sandra virus 19 with bilateral pulmonary opacities Acute kidney injury of unknown etiology Hypertension Plan Hypoxia secondary to sandra virus 19 with bilateral pulmonary opacities- pu lmonology has been consulted on this case, will initiate antibiotic therapy with Zithromax 500 mg p.o. daily. Oxygen per nasal cannula as needed to maintain oxygen saturations greater than 93%. Patient to have respiratory therapist evaluate auction levels each shift and as needed. Appreciate input from pulmonology. DVT prophylaxis with heparin. Anticipate clinical improvement next 48-72 hr. Acute kidney injury of unknown etiology- nephrology consulted on this case. Patient received fluid bolus in the emergency department. Will continue to monitor patient's fluid status. Will obtain urine creatinine and protein, serum uric acid, LDH, and renal ultrasound to evaluate kidney function. Appreciate further input from nephrology. Hypertension- will obtain and continue patient's home medications as appropriate. Discharge Plan: Home Plan to discharge in: 72 Hours - Advance Directives Does patient have a Living Will: No Does patient have a Durable POA for Healthcare: No - Code Status/Comfort Care Code Status Assessed: Yes (Patient is full code) Time Spent Managing Pts Care (In Minutes): 55 <Tejas Mcintosh - Last Filed: 02/14/20 16:07> - Plan Patient seen by nurse practitioner. Agree with history, exam, assessment, and plan of care. Patient with hypoxia secondary to COVID with bilateral pulmonary opacities likely viral pneumonia. Will need to rule out other etiology. Will obtain echocardiogram as well. Case discussed with pulmonology. Pulmonology provided recommendations for nurse practitioner. Maintain oxygen above 93%. Initiate Zithromax. Will also consult infectious disease for further recommendation. Will monitor the patient closely. Patient also with acute renal injury patient without chronic renal disease. Suspect dehydration. Nephrology consulted to further evaluate. Will obtain renal ultrasound. Patient with hypertension. Continue medication. Await further recommendations from pulmonology, Infectious Disease and Nephrology. I will turn the service over to the hospitalist team tomorrow. I will go over the plan of care with him. <Álvaro Brasher - Last Filed: 02/14/20 18:03>
[2020-02-14] MEDS ORDERED: SPIRONOLACTONE 25 MG TABLET PO SCH (16:58)
[2020-02-14] MEDS ORDERED: FUROSEMIDE 20 MG TABLET PO ONE (17:00)
--- NOTE | 2020-02-14 17:58 | RAD REPORT ---
EXAM DESCRIPTION: US - Renal Ultrasound-Complete - 02/14/2020 5:43 pm CLINICAL HISTORY: . Acute renal insufficiency COMPARISON: None. FINDINGS: The right kidney measures 10 cm with a normal echotexture. The left kidney measures 10 cm with a normal echotexture. Hydronephrosis is not seen. No gross abnormality of bladder IMPRESSION: Unremarkable renal ultrasound.
[2020-02-14] MEDS ORDERED: ALBUTEROL INHALER 60 PUFF/8 GM IH PRN (18:07)
[2020-02-14 18:24] LABS: Uric Acid 14.4 mg/dL (2.6-6.0)
[2020-02-14] MEDS: GUAIFENESIN 600 MG SA TAB PO SCH (21:31)
[2020-02-14] MEDS: BENZONATATE 100 MG CAP PO PRN (21:31)
[2020-02-14] MEDS: HEPARIN 5000 UNIT/ML 1 ML VIAL SQ SCH (21:31)
[2020-02-14 22:33] LABS: Urine Bacteria 20-50 /HPF (<20); Urine Culture Reflex Order REFLEXED; Urine RBC NONE SEEN /HPF (NONE SEEN)
[2020-02-14 23:14] VITALS: BMI 40.3
--- NOTE | 2020-02-15 02:03 | CON ---
Date of Consultation: 02/14/2020 Chief Complaint: Abnormal renal function test, acute kidney injury, nonoliguric. History Of Present Illness: Patient is a 64-year-old female. She presented to the hospital because of shortness of breath. She was found to have hypoxemia and COVID-19 positive test. Patient is admitted to the hospital. Nephrology consultation is requested for acute kidney injury. Patient reports dyspnea and cough for at least 2 weeks, fever for at least 1 week. Patient has mul tiple medical problems including hypertension, colon resection, heart catheterization, and cyst remov al from the breast. Multiple family members were tested positive for COVID and patient decided to co me to the hospital when she was short of breath. SpO2 was 84. Patient was placed on oxygen and symp toms gradually improved. Chest x-ray showed bilateral opacities on x-ray today. Review of Systems: Constitutional: Generalized weakness. Eyes: Denies vision changes. Ears, Nose, Mouth and Throat: Denies sore throat, earache. Respiratory: Shortness of breath, cough, and fever. GI: Denies nausea, vomiting. : Denies dysuria, hematuria. Musculoskeletal: Denies tremor. Neurologic: Denies syncope. All other systems reviewed and all are negative. Past Medical History: Hypertension, no previous history of kidney disease, thyroidectomy, hysterecto my, colon resection, cardiac catheterization, cyst removal from the breast. Family History: Father, lung cancer. Mother; heart disease, lung disease, stroke. Sister; hyperten kristian, diabetes. Social History: Denies tobacco, alcohol, or illicit drugs. Physical Examination: Deferred to hospitalist as patient has positive COVID test. Laboratory Data: Lab work showed PT 13.4, INR 1.14. Sodium 137, potassium 3.6, BUN 55, creatinine 1 .76, glucose 131. ALT 39. Impression/plan: 1.Acute on chronic kidney injury. Lab work showed during this admission elevated BUN and creatinine . BUN is 55, creatinine 1.76. Back in June 2019, creatinine was 0.84. Patient does not have h istory of kidney disease. There is hyperuricemia. Uric acid is 14.4, which may go along with preren al azotemia. Recommend IV fluids. Patient although was short of breath due to lung involvement, pat ient was tested positive for COVID. Treatment for COVID will be conducted by primary team. 2.Hypertension. Avoid renal hypoperfusion and continue IV fluids to prevent renal hypoperfusion and hypotension. Due to acute kidney injury, I recommend to stop Hydrochlorothiazide and adjust medicat ion for blood pressure and avoid nephrotoxic medication. 3.Patient was positive for coronavirus disease and had bilateral pulmonary opacity likely secondary to viral pneumonia. She presented with hypoxemia. Patient was started on O2 and oxygen level improv ed to 93. Patient was initiated on Z-Rashawn. Renal ultrasound will be checked to rule out obstructive uropathy and urinalysis will be obtained to rule out active urinary sediment. EB/MODL Voice ID: [id number] Report ID: [id number]
[2020-02-15 04:17] LABS: Basophils % 0.3 % (0-1.3); Hematocrit 35.7 % (36.0-45.0); Lymphocytes % 19.9 % (15.3-44.8); MPV 8.9 fL (7.6-11.3)
[2020-02-15 04:25] LABS: Magnesium 2.5 mg/dL (1.8-2.4)
[2020-02-15] MEDS ORDERED: PNEUMOCOCCAL VACCINE 0.5 ML IMVAC ONE (08:00)
[2020-02-15] MEDS: HEPARIN 5000 UNIT/ML 1 ML VIAL SQ SCH (08:11)
[2020-02-15] MEDS: ACETAMINOPHEN 500 MG TAB PO PRN ×2 (08:11→16:06)
[2020-02-15] MEDS: GUAIFENESIN 600 MG SA TAB PO SCH ×2 (08:11→21:06)
[2020-02-15] MEDS: AZITHROMYCIN 250 MG TAB PO SCH (08:11)
[2020-02-15] MEDS ORDERED: SPIRONOLACTONE 25 MG TABLET PO SCH (09:00)
--- NOTE | 2020-02-15 12:24 | P.PN ---
Subjective Date of Service: 02/15/20 Chief Complaint: Hypoxia, COVID-19 Subjective: No new changes, New changes (Patient is requring increasing amount of O2, now at 4L via NC. She also spiked a fever. She is using her incentive spirometry.) Physical Examination - Vital Signs Temperature: 100.5 F Blood Pressure: 107/58 Pulse: 76 Respirations: 20 Pulse Ox (%): 92 - Physical Exam General: Alert, Cooperative, Mild distress HEENT: Atraumatic, Normocephalic Respiratory: Diminished (bibasilar crackles) Cardiovascular: No edema, Normal pulses, Regular rate/rhythm, Normal S1 S2 Gastrointestinal: Normal bowel sounds, Soft and benign, Non-distended Musculoskeletal: No clubbing, No swelling, No contractures, No erythema, No tenderness, No warmth Integumentary: No rashes, No breakdown, No significant lesion, No tenderness/swelling, No erythema, No warmth, No cyanosis Neurological: Normal speech, Sensation intact, Normal affect Other Physical/Emotional Findings: Agree with examination. - Studies Laboratory Data (last 24 hrs) 02/14/20 13:10: Uric Acid 14.4 H 02/14/20 13:10: PT 13.4 H, INR 1.14, APTT 35.3 02/14/20 13:10: WBC 5.6, Hgb 12.2, Hct 37.7, Plt Count 191 02/14/20 13:10: Sodium 137, Potassium 3.6, BUN 55 H, Creatinine 1.76 H, Glucose 131 H, Total Bilirubin 0.5, AST 51 H, ALT 39, Alkaline Phosphatase 68, Amylase 98, Lipase 138 Microbiology Data (last 24 hrs): 02/14/20 14:37 Throat Group A Streptococcus Rapid Screen - Final 02/14/20 14:37 Nasopharnyx Influenza Type A Antigen Screen - Final 02/14/20 14:37 Nasopharnyx Influenza Type B Antigen Screen - Final Assessment & Plan - Problems (Diagnosis) (1) Acute hypoxemic respiratory failure Current Visit: Yes Status: Acute (2) COVID-19 Current Visit: Yes Status: Acute Physician Review Additional Text: Assessment Patient is a 64 year old female with HTN, colon resection, breast cyst removal currently admitted with shortness of breath. Found to have COVID-19. Her CXR showed moderate bilateral opacities. She is currently on albuterol and azithromycin. Ceftriaxone has been discontinued. She is requiring more and more oxygen Acute hypoxemic respiratory failure COVID-19 HTN PLAN ABG Initiate prone positioning Start IV lasix 40 mg daily Assess patient for Coronavirus Convalenscent Plasma Continue azithromycin
[2020-02-15] MEDS: FUROSEMIDE 40 MG/4 ML VIAL IV SCH (12:43)
--- NOTE | 2020-02-15 13:06 | P.CNS ---
Date of Consult: 02/15/20 Reason for Consult: Jennifer virus infection possible ARDS Chief Complaint: Hypoxia, COVID-19 History of Present Illness: Patient was not interview due to douglas virus infection chart review 64-year-old lady admitted with fever and shortness of breath for the past 2 weeks multiple members of tested positive for coronavirus infection she has and persistent fever admitted with low oxygen saturation any acute lung injury She has been sick for about 2 weeks Allergies Penicillins Allergy (Intermediate, Verified 02/15/20 01:22) Shortness of breath Sulfa (Sulfonamide Antibiotics) Allergy (Verified 02/15/20 01:22) Itching Home Medications: Losartan/Hydrochlorothiazide [Losartan-Hctz 100-25 mg Tab] 1 each PO DAILY 04/12/16 Celecoxib [Celebrex] 200 mg PO DAILY 02/15/20 Gabapentin 600 mg PO BID 02/15/20 Metoprolol Succinate [Toprol Xl] 50 mg PO DAILY 02/15/20 - Past Medical/Surgical History Diabetic: No -: HTN -: diverticulitis -: neuropathy -: thyroidectomy -: hysterectomy -: colon resection -: heart cath -: cyst removal from breast (benign) Psychosocial/ Personal History: Patient lives at home with her . - Family History Father Medical History: Lung disease, Cancer Mother Medical History: Heart disease, Lung disease, Stroke Sister Medical History: Hypertension, Diabetes - Social History Smoking Status: Current every day smoker Alcohol use: Yes CD- Drugs: No Caffeine use: Yes Place of Residence: Home Review of Systems is unable to be obtained Physical Examination Temp Pulse Resp BP Pulse Ox 100.5 F 72 20 120/60 92 02/15/20 12:33 02/15/20 12:43 02/15/20 12:33 02/15/20 12:43 02/15/20 12:33 General: Other (Exam deferred) Laboratory Data (last 24 hrs) 02/14/20 13:10: Uric Acid 14.4 H 02/14/20 13:10: PT 13.4 H, INR 1.14, APTT 35.3 02/14/20 13:10: WBC 5.6, Hgb 12.2, Hct 37.7, Plt Count 191 02/14/20 13:10: Sodium 137, Potassium 3.6, BUN 55 H, Creatinine 1.76 H, Glucose 131 H, Total Bilirubin 0.5, AST 51 H, ALT 39, Alkaline Phosphatase 68, Amylase 98, Lipase 138 - Problems (1) Acute hypoxemic respiratory failure Current Visit: Yes Status: Acute Plan: Patient is 64 years of age admitted with hypoxic respiratory failure secondary to douglas virus patient's renal function has improved ovoid IV fluids Lasix was given yesterday maintain in in negative fluid balance I have added low-dose of diuretic consider BiPAP having slight fever continue with Zithromax continuous pulse ox incentive spirometry
[2020-02-15 13:54] LABS: Arterial Blood Carboxyhemoglob 1.1 % (0-1.5); Blood Gas Oxyhemoglobin 88.7 % (94-97); Blood O2 Saturation 90.6 % (92-98.5)
[2020-02-15] MEDS: BENZONATATE 100 MG CAP PO PRN (16:07)
[2020-02-15] MEDS ORDERED: ENOXAPARIN 40 MG/0.4 ML SQ SCH (17:00)
--- NOTE | 2020-02-15 18:54 | PN ---
Date of Progress Note: 02/15/2020 Subjective: This visit has been done through the video as the patient is COVID positive, on isolatio n. Patient was admitted with COVID pneumonia. Patient having shortness of breath. No chest pain. Physical Examination: Vital Signs: Blood pressure 120/60, pulse of 72, temperature 100.5. Patient had good urine output, voiding. Chest: Crackles bilateral. HEART: S1-S2 regular. Abdomen: Soft, nontender. EXTREMITIES: Trace edema. Laboratory Data: WBC 4.8, H and H 11.6/35.7, platelets 170. Sodium 140, potassium 4, bicarb 32, BUN 38, creatinine 1.1. Upon admission, creatinine 1.7, calcium 8.2, magnesium 2.5. Urine PC ratio 0.3 . Current Medications: Include: 1.Azithromycin. 2.Spironolactone. 3.Lasix. 4.Zofran. Assessment And Plan: 1.Acute kidney injury secondary to COVID nephropathy, slightly on the over volume side. I am going to start the patient on diuresis. Discontinue IV fluid. 2.Hypertension, controlled optimal. We will continue to monitor. 3.COVID pneumonia. Follow up with primary. Continue current treatment. 4.Hypokalemia. Patient was started on spironolactone. We will follow up. KAYY/HAZEL Voice ID: [id number] Report ID: [id number]
--- NOTE | 2020-02-15 19:19 | CON ---
History Of Present Illness: This is a 64-year-old female. I was consulted for COVID pneumonia. Monse mayorga is currently being treated with BiPAP. Patient has significant past medical history of hyperten kristian, diverticulitis, thyroidectomy, hysterectomy, colon resection, heart catheterization. This exam ination and consultation were done with the help of telemedicine and the nurse in the room. Patient denies any chest pain, abdominal pain, constipation, or diarrhea. Feels better with BiPAP in place. Continue to have some cough and fevers. Past Medical History: As per HPI. Social History: Nonsmoker, nondrinker. Alcohol positive. Lives at home. Family History: Noncontributory. Medications: Zithromax. See MAR for other medications. Allergies: PENICILLIN, SULFA DRUGS. Review of Systems: 10-point review was performed. Physical Examination: General: This is a 64-year-old female, lying in bed, not in any acute distress, on BiPAP machine. Vital Signs: Temperature 100.5, pulse 76, respiration 20, blood pressure 107/58. Laboratory Data: WBC 4.8, hemoglobin 11.6, platelets are 170. Chemistry shows sodium 140, potassium 4, chloride 105, bicarb 32, BUN 38, creatinine 1.818, glucose is 130. Elevated LDH. Micro data: B lood cultures negative for 24 hour. COVID positive. Influenza A and B antigen are negative. Chest x-ray showing signs of congestive heart failure with bilateral basal and also showing ground-glass ap pearance. Assessment And Plan: A 64-year-old female with coronavirus disease 2019 positive, possible pneumonit is secondary to coronavirus. We will recommend patient to be on Zithromax, Solu-Medrol 40 mg IV q.8 hours, vitamin C, zinc, vitamin D, and probiotics. Continue current treatment. We will follow the p atient closely. Thank you Dr. Butler for consult. NF/MODL Voice ID: [id number] Report ID: [id number]
[2020-02-15] MEDS ORDERED: ENSURE HIGH PROTEIN 237 ML CAN PO SCH (21:00)
[2020-02-15] MEDS: ENSURE HIGH PROTEIN 237 ML CAN PO SCH (21:07)
[2020-02-16] MEDS: BENZONATATE 100 MG CAP PO PRN (00:54)
[2020-02-16] MEDS: ACETAMINOPHEN 500 MG TAB PO PRN ×4 (00:55→20:13)
[2020-02-16 04:46] LABS: Absolute Lymphocytes (CBC) 0.8 K/uL (0.7-4.9); Basophils % 0.3 % (0-1.3); Hematocrit 34.6 % (36.0-45.0); Lymphocytes % 17.5 % (15.3-44.8); MPV 8.7 fL (7.6-11.3); RBC Red Blood Cell Count 3.62 M/uL (3.86-4.86)
[2020-02-16 05:09] LABS: Potassium 3.4 mmol/L (3.5-5.1)
--- NOTE | 2020-02-16 07:25 | EKG ---
Test Date: 2020-02-14 Test Time: 14:47:45 Certified Maintenance Welder: ALLISON MEASUREMENT RESULTS: Intervals: Rate: 80 AL: 152 QRSD: 72 QT: 398 QTc: 459 [place]: P: 52 AL: 152 QRS: -45 T: 71 INTERPRETIVE STATEMENTS: Normal sinus rhythm Left axis deviation Cannot rule out Anterior infarct, age undetermined Abnormal ECG Compared to ECG 04/17/2016 23:24:42 Left-axis deviation now present Myocardial infarct finding still present Electronically Signed On 02-16-20 07:23:08 CDT by Marcial Smith
[2020-02-16] MEDS: GUAIFENESIN 600 MG SA TAB PO SCH ×2 (08:42→19:42)
[2020-02-16] MEDS: AZITHROMYCIN 250 MG TAB PO SCH (08:42)
[2020-02-16] MEDS ORDERED: LOSARTAN/HCTZ 50-12.5 PO SCH (09:00)
[2020-02-16] MEDS: METOPROLOL XL 50 MG TAB PO SCH (09:00)
[2020-02-16] MEDS: ENSURE HIGH PROTEIN 237 ML CAN PO SCH ×2 (09:00→19:42)
[2020-02-16] MEDS ORDERED: HOME MED 1 EA UNK (Losartan/Hydrochlorothiazide [Losartan-Hctz 100-25 Mg Tab] 1 EACH) PO SCH (09:00)
[2020-02-16] MEDS ORDERED: POTASSIUM 25 MEQ EFFERV TAB PO ONE ×2 (09:00→21:00)
[2020-02-16] MEDS: FUROSEMIDE 40 MG/4 ML VIAL IV SCH (09:03)
[2020-02-16] MEDS: SPIRONOLACTONE 25 MG TABLET PO SCH (09:04)
--- NOTE | 2020-02-16 11:46 | P.PN ---
Subjective Date of Service: 02/16/20 Chief Complaint: Hypoxia, COVID-19 Subjective: Other (Patient is still requiring high amount of oxygen. She is currently on 4 L of O2 via NC. She was placed on BiPAP yesterday by Pulmonary.) Physical Examination - Vital Signs Temperature: 100.2 F Blood Pressure: 103/51 Pulse: 83 Respirations: 21 Pulse Ox (%): 95 - Physical Exam General: Cooperative, Moderate distress HEENT: Atraumatic, Normocephalic, EOMI Neck: Supple (bilateral cackles. Mild wheezing) Cardiovascular: No edema, Normal pulses, Regular rate/rhythm, Normal S1 S2 Gastrointestinal: Normal bowel sounds, Soft and benign, Non-distended Musculoskeletal: No clubbing, No swelling, No contractures, No erythema, No tenderness, No warmth Integumentary: No rashes, No breakdown, No significant lesion, No tenderness/swelling, No erythema, No warmth, No cyanosis Neurological: Normal speech, Sensation intact, Normal affect Other Physical/Emotional Findings: Agree with examination. - Studies Microbiology Data (last 24 hrs): 02/14/20 14:37 Throat Culture & Sensitivity - Final NORMAL UPPER RESPIRATORY LAURA GROWN. Assessment & Plan - Problems (Diagnosis) (1) Acute hypoxemic respiratory failure Current Visit: Yes Status: Acute (2) COVID-19 Current Visit: Yes Status: Acute Physician Review Additional Text: Assessment Patient is a 64 year old female with HTN, colon resection, breast cyst removal currently admitted with shortness of breath. She was found to have COVID-19. Her CXR showed moderate bilateral opacities. She is currently on albuterol and azithromycin. Ceftriaxone has been discontinued. She is in moderate ARDS, alternating between nasal cannula and BiPAP. Her inflammatory markers are rising. Pulmonary and Nephrology on board. Acute hypoxemic respiratory failure COVID-19 HTN PLAN Registered for Coronavirus Convalenscent Plasma. Hopefully to be transfused today Encourage prone positioning Continue IV lasix 40 mg daily. Start on therapeutic lovenox Continue azithromycin and oxygen support Monitor inflammatory markers daily
[2020-02-16] MEDS: Enoxaparin 120 MG/0.8 ML SYR SQ SCH ×2 (12:39→19:40)
--- NOTE | 2020-02-16 12:49 | P.PN ---
Subjective Date of Service: 02/16/20 Chief Complaint: Hypoxia, COVID-19 Patient is still feeling very weak acquiring BiPAP over patient's oxygen requirement have not increased now fully anti coagulated patient is febrile very weak Review of Systems is unable to be obtained Physical Examination - Vital Signs Temperature: 100.2 F Blood Pressure: 103/51 Pulse: 83 Respirations: 21 Pulse Ox (%): 95 - Physical Exam General: Other (Deferred) Other Physical/Emotional Findings: Agree with examination. - Studies Microbiology Data (last 24 hrs): 02/14/20 14:37 Throat Culture & Sensitivity - Final NORMAL UPPER RESPIRATORY LAURA GROWN. Assessment & Plan - Problems (Diagnosis) (1) Acute hypoxemic respiratory failure Current Visit: Yes Status: Acute Plan: Patient most likely has ARDS patient is also fully anti coagulated Dc losartan with hydrochlorothiazide continue with spironolactone and Lasix kidney function is now normal he for oxygen requirement increases consider adding steroids
[2020-02-16] MEDS ORDERED: NA CHLORIDE 0.9% 50 ML ONE (14:51)
--- NOTE | 2020-02-16 15:32 | P.PN ---
Date of Service: 02/16/20 Subjective: Patient is a 64-year-old female with significant past medical history of hypertension, diverticulitis, thyroidectomy, hysterectomy, colon resection, heart catheterization. Patient presented to the emergency room with fevers and shortness of breath. Patient reports having multiple family members with Covid 19. Patient tested positive for Covid 19. Per nurse patient was able to be weaned off BIPAP and tolerating 4L NC. Patient still having fevers. Patient is to have infusion of Coronovirus Convalensent plasma this shift. Objective: Temp Pulse Resp BP Pulse Ox 100.2 F 83 21 H 103/51 L 95 02/16/20 12:49 02/16/20 12:49 02/16/20 12:49 02/16/20 12:49 02/16/20 12:49 Labs: Na 139, K 3.4, BUN 22, Creat 0.91, CRP 207, WBC 4.8, Hgb 11.3, Hct 34.6 Chest x-ray 02/13: EXAM DESCRIPTION: Kristine Single View02/14/2020 2:12 pm CLINICAL HISTORY: sob COMPARISON: 2016 FINDINGS: [id number] bilateral pulmonary opacities. The heart is mildly enlarged IMPRESSION: These findings may indicate CHF Assessment And Plan: Covid 19, Recommend Solu-Medrol 40 mg IV q.8 hours, vitamin C, zinc, vitamin D, Pneumonitis secondary to Covid 19, continue zithromax Blood cultures negative Urine cultures show 10-100k mixed leticia, no WBC in urine, most likely contamination Sputum culture negative Throat culture normal leticia Continue respiratory support Will continue to monitor Patient discussed with Dr. Owens
[2020-02-16] MEDS ORDERED: NA CHLORIDE 0.9% 100 ML ONE (16:25)
--- NOTE | 2020-02-16 20:08 | PN ---
Date of Progress Note: 02/16/2020 Subjective: Patient was admitted with COVID pneumonia, acute kidney injury secondary to COVID nephro lewis, prerenal. Patient was over-volume, we started diuresing. Physical Examination: Vital Signs: Blood pressure 103/51, pulse of 83, T-max of 100.2. Chest: Crackles bilateral. Heart: S1-S2, regular. Abdomen: Soft, nontender. Extremities: Trace pedal edema. Neurologic: Alert. Patient on BiPAP. Laboratory Data: H and H 11.3/34.6. Sodium 139, potassium 3.4, bicarb 30, BUN 22, creatinine 0.9, c alcium 8.5. Current Medications: The patient is on; 1.Spironolactone. 2.Lasix. 3.Metoprolol. 4.Lovenox. 5.Breathing treatment. Assessment And Plan: All this visit has been done through the video as the patient is on isolation f or COVID pneumonia. 1.Acute kidney injury secondary to cardiorenal on the recover/resolve, but still on the over volume side. I am going to continue diuresing. 2.Hypertension, controlled optimal. Continue current treatment. 3.Hypokalemia. We will supplement. 4.Over volume, respiratory failure. Continue diuresis. 5.COVID pneumonia. Follow up with Pulmonary and ID. KAYY/DONALDOL Voice ID: [id number] Report ID: [id number]
[2020-02-16] MEDS: ONDANSETRON 4 MG/2 ML VIAL IV PRN (20:13)
[2020-02-17] MEDS: ACETAMINOPHEN 500 MG TAB PO PRN ×2 (00:59→09:57)
[2020-02-17] MEDS ORDERED: NA CHLORIDE 0.9% 250 ML ONE (02:52)
[2020-02-17 05:37] LABS: Basophils % 0.5 % (0-1.3); Hematocrit 33.9 % (36.0-45.0); Lymphocytes % 15.7 % (15.3-44.8); MPV 9.1 fL (7.6-11.3); RBC Red Blood Cell Count 3.59 M/uL (3.86-4.86)
[2020-02-17 06:18] LABS: Ferritin 323.3 ng/mL (8-388); Potassium 3.4 mmol/L (3.5-5.1)
[2020-02-17] MEDS: FUROSEMIDE 40 MG/4 ML VIAL IV SCH ×2 (09:00→21:19)
[2020-02-17] MEDS: SPIRONOLACTONE 25 MG TABLET PO SCH (09:00)
[2020-02-17] MEDS: ENSURE HIGH PROTEIN 237 ML CAN PO SCH ×2 (09:00→21:00)
[2020-02-17] MEDS ORDERED: POTASSIUM CL SA 10 MEQ TAB PO ONE ×2 (09:00→14:00)
--- NOTE | 2020-02-17 09:13 | RAD REPORT ---
EXAM DESCRIPTION: RAD - Chest Single View - 02/17/2020 9:07 am CLINICAL HISTORY: ARDS Chest pain. COMPARISON: Chest Single View dated 02/14/2020; Chest Single View dated 04/17/2016; CHEST SINGLE VIEW dated 08/06/2014; CHEST SINGLE VIEW dated 08/04/2014 FINDINGS: Portable technique limits examination quality. Mild to moderate worsening in bilateral pulmonary opacities is seen since the comparative study. The heart is moderately enlarged in size. No displaced fractures. IMPRESSION: Mild to moderate worsening in lung aeration since the comparative study.
--- NOTE | 2020-02-17 09:25 | P.PN ---
Date of Service: 02/17/20 Subjective: Patient is a 64-year-old female with significant past medical history of hypertension, diverticulitis, thyroidectomy, hysterectomy, colon resection, heart catheterization. Patient presented to the emergency room with fevers and shortness of breath. Patient reports having multiple family members with Covid 19. Patient tested positive for Covid 19. Per nurse patient was able to be weaned off BIPAP and tolerating 4L NC. Patient still having fevers. Patient had infusion of Coronovirus Convalensent plasma yesterday. Patient examined through telehealth medicine. Patient sitting upright on the side of the bed. Utilizing nasal cannula. Patient complains of headache, fatigue and decreased appetite. Denies pain, shortness of breath and diarrhea. Patient with low grade fever this shift. Objective: Temp Pulse Resp BP Pulse Ox 99.1 F 78 20 119/60 93 02/17/20 07:54 02/17/20 07:54 02/17/20 07:54 02/17/20 07:54 02/17/20 07:54 Labs: Na 141, K 3.4, BUN 18, Creat 0.78, CRP 169, WBC 6.3, Hgb 11.0, Hct 33.9 Chest x-ray 02/13: EXAM DESCRIPTION: [facility] Single View02/14/2020 2:12 pm CLINICAL HISTORY: sob COMPARISON: 2015 FINDINGS: [id number] bilateral pulmonary opacities. The heart is mildly enlarged IMPRESSION: These findings may indicate CHF Chest x-ray 02/16: Mild to moderate worsening in bilateral pulmonary opacities is seen since the comparative study. Assessment And Plan: Covid 19, Recommend adding vitamin C, zinc, and vitamin D to treatment plan Pneumonitis secondary to Covid 19, continue Zithromax for a total of 6 days and prednisone Blood cultures negative Urine cultures show 10-100k mixed leticia, no WBC in urine, most likely contamination Sputum culture negative Throat culture normal leticia Continue respiratory support Will continue to monitor Patient discussed with Dr. Owens
[2020-02-17 09:43] LABS: Arterial Blood Carboxyhemoglob 1.1 % (0-1.5); Blood Gas Oxyhemoglobin 86.4 % (94-97); Blood O2 Saturation 88.4 % (92-98.5)
[2020-02-17] MEDS: predniSONE 20 MG TAB PO SCH ×2 (09:54→21:19)
[2020-02-17] MEDS: AZITHROMYCIN 250 MG TAB PO SCH (09:54)
[2020-02-17] MEDS: GUAIFENESIN 600 MG SA TAB PO SCH ×2 (09:54→21:20)
[2020-02-17] MEDS: Enoxaparin 120 MG/0.8 ML SYR SQ SCH ×2 (09:56→21:20)
[2020-02-17] MEDS: METOPROLOL XL 50 MG TAB PO SCH (09:56)
--- NOTE | 2020-02-17 12:15 | P.PN ---
Subjective Date of Service: 02/17/20 Chief Complaint: Hypoxia, COVID-19 history obtained from the nurse patient is ambulating improving now tolerating nasal cannula oxygen Review of Systems General: Weakness Respiratory: Shortness of Breath Physical Examination - Vital Signs Temperature: 98.8 F Blood Pressure: 119/60 Pulse: 78 Respirations: 20 Pulse Ox (%): 93 - Physical Exam Other Physical/Emotional Findings: Agree with examination. - Studies Microbiology Data (last 24 hrs): 02/14/20 14:37 Throat Culture & Sensitivity - Final NORMAL UPPER RESPIRATORY LAURA GROWN. Assessment & Plan - Problems (Diagnosis) (1) Acute hypoxemic respiratory failure Current Visit: Yes Status: Acute Plan: patient admitted with the acute call with pneumonia is steadily improving I recommend adding some prednisone not continue with negative fluid balance patient received plasma for a Covidien infection now a fever I will still little hypoxic hypercapnic continue with BiPAP Physician Review Additional Text: Assessment Patient is a 64 year old female with HTN, colon resection, breast cyst removal currently admitted with shortness of breath. She was found to have COVID-19. Her CXR showed moderate bilateral opacities. She is currently on albuterol and azithromycin. Ceftriaxone has been discontinued. She is in moderate ARDS, alternating between nasal cannula and BiPAP. Her inflammatory markers are rising. Pulmonary and Nephrology on board. Acute hypoxemic respiratory failure COVID-19 HTN PLAN Registered for Coronavirus Convalenscent Plasma. Hopefully to be transfused today Encourage prone positioning Continue IV lasix 40 mg daily. Start on therapeutic lovenox Continue azithromycin and oxygen support Monitor inflammatory markers daily
--- NOTE | 2020-02-17 13:32 | PN ---
Date of Progress Note: 02/17/2020 Subjective: Patient was admitted with COVID pneumonia, respiratory failure, acute kidney injury. Ov er volume, the patient was treated for COVID pneumonia and started on diuresis. Kidney function grad ually started improving. Patient is off BiPAP today. Physical Examination: Vital Signs: Blood pressure 119/60, pulse of 78, afebrile. The patient had good urine output of 290 0, negative of 1900. Chest: Crackles bilaterally. Heart: S1, S2 regular. Abdomen: Soft, nontender. Extremities: Trace edema. Neurologic: Alert. No focal. Laboratory Data: WBC 6.3, H and H 11/33.9, platelets of 246. Sodium 141, potassium 3.4, bicarb 34, BUN 18, creatinine 0.7, calcium 8.9, LDH of 400. Current Medications: The patient on include: 1.Azithromycin. 2.Lovenox. 3.Spironolactone 25. 4.Metoprolol. 5.Lasix 40 daily. 6.Zofran. 7.Prednisone. 8.KCl. Assessment And Plan: 1.Acute kidney injury secondary to prerenal/coronavirus disease pneumonia. Over volume, I am going to go ahead and increase Lasix to b.i.d. and will increase spironolactone to 50. We will monitor. 2.Hypertension. Controlled optimal. Continue current medication. Increasing Lasix and spironolact one to establish better volume control. 3.Hypokalemia. Continue supplement. Increase spironolactone. 4.Coronavirus disease pneumonia. Continue current treatment. We will follow up with Pulmonary, ID, and hospitalist. 5.Over volume, we will try to establish better volume control with the diuresis. KAYY/HAZEL Voice ID: [id number] Report ID: [id number]
--- NOTE | 2020-02-17 13:35 | P.PN ---
Subjective Date of Service: 02/17/20 Chief Complaint: Hypoxia, COVID-19 Subjective: Improving (Patient received Coronavirus Convalenscent Plasma yesterday. Multiple fever spikes during transfusion. Transfusion stopped. Blood bank ruled out Transfusion related hemolytic reaction. Transfusion re sumed with PRN tylenol and successfully completed. Afebrile overnight. She is still having productive cough. She states that she is feeling better this morning. Feels more energetic and wants to be more active.), Other Physical Examination - Vital Signs Temperature: 98.8 F Blood Pressure: 119/60 Pulse: 78 Respirations: 20 Pulse Ox (%): 93 - Physical Exam General: Cooperative, Mild distress, Other (more energetic, less dyspenic) HEENT: Atraumatic, Normocephalic, EOMI Neck: Supple Respiratory: Crackles/rales, Other (bilateral crackles, no wheezing. ) Cardiovascular: No edema, Normal pulses, Regular rate/rhythm, Normal S1 S2 Gastrointestinal: Normal bowel sounds, Soft and benign, Non-distended Musculoskeletal: No clubbing, No swelling, No contractures, No erythema, No tenderness, No warmth Integumentary: No rashes, No breakdown, No significant lesion, No tenderness/swelling, No erythema, No warmth, No cyanosis Neurological: Normal speech, Sensation intact, Normal affect Other Physical/Emotional Findings: Agree with examination. - Studies Microbiology Data (last 24 hrs): 02/14/20 14:37 Throat Culture & Sensitivity - Final NORMAL UPPER RESPIRATORY LAURA GROWN. Assessment & Plan - Problems (Diagnosis) (1) Acute hypoxemic respiratory failure Current Visit: Yes Status: Acute (2) COVID-19 Current Visit: Yes Status: Acute Physician Review Additional Text: Assessment Patient is a 64 year old female with HTN, colon resection, breast cyst removal currently admitted with shortness of breath. She was found to have COVID-19. Her CXR showed moderate bilateral opacities. She is currently on albuterol and azithromycin. Ceftriaxone has been discontinued. She is in moderate ARDS, alternating between nasal cannula and BiPAP. She received convalenscent plasma on 02/15. Her inflammatory markers are trending down for the most part. Acute hypoxemic respiratory failure Moderate ARDS COVID-19 HTN PLAN Continue diuresis Encourage prone positioning if tolerated Continue IV lasix 40 mg BID. Fluid restriction, < 1200 per day Monitor I/O, maintain net negative if tolerated Continue therapeutic lovenox while inpatient Continue azithromycin and oxygen support Monitor inflammatory markers daily I appreciate recommendations from Nephrology and Pulmonary
[2020-02-17] MEDS: ONDANSETRON 4 MG/2 ML VIAL IV PRN (19:03)
[2020-02-18 06:34] LABS: Absolute Lymphocytes (CBC) 0.9 K/uL (0.7-4.9); Basophils % 0.5 % (0-1.3); Hematocrit 34.6 % (36.0-45.0); Lymphocytes % 16.5 % (15.3-44.8); MPV 8.9 fL (7.6-11.3); RBC Red Blood Cell Count 3.64 M/uL (3.86-4.86)
[2020-02-18] MEDS: Enoxaparin 120 MG/0.8 ML SYR SQ SCH ×2 (07:19→21:08)
[2020-02-18] MEDS: GUAIFENESIN 600 MG SA TAB PO SCH ×2 (07:20→21:09)
[2020-02-18] MEDS: SPIRONOLACTONE 25 MG TABLET PO SCH (07:20)
[2020-02-18] MEDS: AZITHROMYCIN 250 MG TAB PO SCH (07:20)
[2020-02-18] MEDS: METOPROLOL XL 50 MG TAB PO SCH (07:20)
[2020-02-18] MEDS: predniSONE 20 MG TAB PO SCH ×2 (07:20→21:09)
[2020-02-18] MEDS: FUROSEMIDE 40 MG/4 ML VIAL IV SCH (07:21)
[2020-02-18] MEDS: ENSURE HIGH PROTEIN 237 ML CAN PO SCH ×2 (07:21→21:08)
--- NOTE | 2020-02-18 07:35 | RAD REPORT ---
EXAM DESCRIPTION: RAD - Chest Single View - 02/18/2020 6:16 am CLINICAL HISTORY: sob COMPARISON: Portable February 16, portable February 13 TECHNIQUE: AP portable chest image was obtained 02/18/2020 6:16 am . FINDINGS: Lung volumes are reduced compared to prior imaging. Large body habitus affects are also pr esent. Interstitial and alveolar opacities are similar to slightly progressive. The low lung volume a ccentuates lung changes. Patient probably has some true further progression. Cardiac silhouette is mildly enlarged mostly due to shallow inspiration and body habitus affects. The re is more overlying soft tissue than prior studies. No pneumothorax or enlarging pleural effusion. No acute bony abnormality seen. No acute aortic findi ngs suspected. IMPRESSION: Slight worsening of the interstitial and alveolar opacification since February 16. Low lung volumes and greater overlying soft tissues exaggerate the progression.
[2020-02-18 08:56] LABS: Ferritin 301.7 ng/mL (8-388)
[2020-02-18] MEDS ORDERED: D50W 25 GM/50 ML SYRINGE/VIAL IV PRN (12:25)
[2020-02-18] MEDS ORDERED: GLUCAGON 1 MG/VIAL IM PRN (12:25)
--- NOTE | 2020-02-18 12:32 | P.PN ---
Subjective Date of Service: 02/18/20 Chief Complaint: Hypoxia, COVID-19 Condition stable patient is 96% on 4 L of nasal cannula oxygen ambulating around the room Review of Systems is unable to be obtained Physical Examination - Vital Signs Temperature: 98.7 F Blood Pressure: 106/53 Pulse: 67 Respirations: 18 Pulse Ox (%): 95 - Physical Exam General: Alert, Other (Patient ambulating) Other Physical/Emotional Findings: Agree with examination. Assessment & Plan - Problems (Diagnosis) (1) Acute hypoxemic respiratory failure Current Visit: Yes Status: Acute Plan: Patient has ARDS from coal with infection stable check room air pulse ox I have added Lantus due to hyperglycemia kidney function is now normal recommend did reducing dose of Lasix patient is afebrile also on spironolactone inflammatory markers are trending down will try and arrange for home oxygen Dc Zithromax
--- NOTE | 2020-02-18 13:38 | P.PN ---
Subjective Date of Service: 02/18/20 Chief Complaint: Hypoxia, COVID-19 Subjective: Other (Patient continues to improve although signicantly from yesterday. She is still afebrile.) Physical Examination - Vital Signs Temperature: 98.7 F Blood Pressure: 106/53 Pulse: 67 Respirations: 18 Pulse Ox (%): 95 - Physical Exam General: Cooperative, Mild distress, Obese HEENT: Atraumatic, Normocephalic, EOMI Neck: JVD not distended Respiratory: Diminished, Crackles/rales Cardiovascular: No edema, Normal pulses, Regular rate/rhythm, Normal S1 S2 Musculoskeletal: No clubbing, No swelling, No contractures, No erythema, No tenderness Integumentary: No rashes, No breakdown, No significant lesion, No tenderness/swelling, No erythema, No warmth, No cyanosis Neurological: Normal speech, Sensation intact, Normal affect Other Physical/Emotional Findings: Agree with examination. Assessment & Plan - Problems (Diagnosis) (1) Acute hypoxemic respiratory failure Current Visit: Yes Status: Acute (2) COVID-19 Current Visit: Yes Status: Acute Physician Review Additional Text: Assessment Patient is a 64 year old female with HTN, colon resection, breast cyst removal currently admitted with shortness of breath. She was found to have COVID-19. Her CXR showed moderate bilateral opacities. She is currently on albuterol and azithromycin. Ceftriaxone has been discontinued. She is in moderate ARDS, alternating between nasal cannula and BiPAP. She received convalescent plasma on 02/15. Her inflammatory markers continue trending down. She is currently on 3.5 L of O2 via NC with O2 saturation 94%. Acute hypoxemic respiratory failure Moderate ARDS COVID-19 HTN PLAN Continue diuresis and oxygen support Encourage prone positioning if tolerated Continue IV lasix 40 mg. Maintain net (-) Fluid restriction, < 1200 per day Continue therapeutic lovenox while inpatient Continue azithromycin Monitor inflammatory markers daily I appreciate recommendations from Nephrology and Pulmonary Patient will be discharged on home O2. Case discussed during MDR
--- NOTE | 2020-02-18 14:47 | P.PN ---
Subjective Date of Service: 02/18/20 Chief Complaint: Hypoxia, COVID-19 Subjective Pt admitted with SOB, found to have COVID 19 had Satya that resolved today feels better cr stable agree to reduce lasix Physical Examination: General: AAOX3, , obeses neck: supple, no elevated JVD Heart: RRR, normal S1,2 no murmur or rub chest CTAB, no rales or whezes Abdomen: soft , NT ext : no edema A/P SATYA resolved Cr normalized now renal dose meds HTN cotrolled fluid overload lasix reduce cont aldactone COVID 19 cont supportive care total; time spent 35min Physical Examination - Vital Signs Temperature: 98.7 F Blood Pressure: 106/53 Pulse: 67 Respirations: 18 Pulse Ox (%): 95 - Physical Exam Other Physical/Emotional Findings: Agree with examination.
[2020-02-18] MEDS ORDERED: INSULIN GLARGINE 100 UNITS/ML SQ SCH (17:00)
[2020-02-19 04:53] LABS: Absolute Lymphocytes (CBC) 0.9 K/uL (0.7-4.9); Basophils % 0.5 % (0-1.3); Hematocrit 35.8 % (36.0-45.0); Lymphocytes % 16.3 % (15.3-44.8); RBC Red Blood Cell Count 3.78 M/uL (3.86-4.86)
[2020-02-19] MEDS: Enoxaparin 120 MG/0.8 ML SYR SQ SCH (07:53)
[2020-02-19] MEDS: SPIRONOLACTONE 25 MG TABLET PO SCH (07:53)
[2020-02-19] MEDS: GUAIFENESIN 600 MG SA TAB PO SCH (07:55)
[2020-02-19] MEDS: predniSONE 20 MG TAB PO SCH (07:55)
[2020-02-19] MEDS: METOPROLOL XL 50 MG TAB PO SCH (07:55)
[2020-02-19] MEDS: ENSURE HIGH PROTEIN 237 ML CAN PO SCH (07:56)
[2020-02-19] MEDS ORDERED: FUROSEMIDE 40 MG/4 ML VIAL IV SCH (09:00)
--- NOTE | 2020-02-19 11:00 | P.DS ---
Admission Date: 02/14/20 Discharge Date: 02/19/20 Disposition: DC HOME/HOME HEALTH CARE Discharge Condition: GOOD Reason for Admission: Hypoxia, COVID-19 - Problems (1) Acute hypoxemic respiratory failure Current Visit: Yes Status: Acute (2) COVID-19 Current Visit: Yes Status: Acute Hospital Course: Patient is a 64 year old female with morbid obesity who was admitted with acute hypoxemic respiratory failure secondary to COVID-19. She progressed into moderate ARDS requiring 4L of O2 via NC, and BIPAP therapy. She was given Coronavirus convalescent plasma (CCP). Became febrile shortly into transfusion. Transfusion was held. Blood bank ruled out hemolytic reaction. Transfusion was resumed and successfully completed. She responded well. She became more energetic, less visibly dyspneic. She was also on azithromycin, furosemide and prednisone. She will be discharged on home oxygen. Vital Signs/Physical Exam: Temp Pulse Resp BP Pulse Ox 98 F 69 18 107/58 L 96 02/19/20 08:20 02/19/20 08:20 02/19/20 08:20 02/19/20 08:20 02/19/20 08:20 General: Mild distress, Other (More energetic and less dyspneic) HEENT: Atraumatic, Normocephalic, EOMI Neck: Supple Respiratory: Other (Better air entry, L> R. Less crackles. No wheezing) Cardiovascular: No edema, Normal pulses, Regular rate/rhythm, Normal S1 S2 Gastrointestinal: Normal bowel sounds, Soft and benign, Non-distended Musculoskeletal: No clubbing, No swelling, No contractures, No erythema, No tenderness, No warmth Integumentary: No rashes, No breakdown, No significant lesion, No tenderness/swelling, No erythema, No warmth, No cyanosis Neurological: Normal speech, Sensation intact, Normal affect Other Physical/Emotional Findings: Agree with examination. Laboratory Data at Discharge: WBC 5.3 K/uL (4.3-10.9) 02/19/20 04:27 Hgb 11.9 g/dL (12.0-15.0) L 02/19/20 04:27 Hct 35.8 % (36.0-45.0) L 02/19/20 04:27 Plt Count 301 K/uL (152-406) 02/19/20 04:27 PT 13.4 SECONDS (9.5-12.5) H 02/14/20 13:10 INR 1.14 02/14/20 13:10 APTT 35.3 SECONDS (24.3-36.9) 02/14/20 13:10 Sodium 141 mmol/L (136-145) 02/17/20 05:08 Potassium 4.1 mmol/L (3.5-5.1) 02/17/20 14:40 BUN 18 mg/dL (7-18) 02/17/20 05:08 Creatinine 0.78 mg/dL (0.55-1.3) 02/17/20 05:08 Glucose 126 mg/dL (74-106) H 02/17/20 05:08 Uric Acid 14.4 mg/dL (2.6-6.0) H 02/14/20 13:10 Magnesium 2.5 mg/dL (1.8-2.4) H 02/15/20 03:22 Total Bilirubin 0.5 mg/dL (0.2-1.0) 02/14/20 13:10 AST 51 U/L (15-37) H 02/14/20 13:10 ALT 39 U/L (12-78) 02/14/20 13:10 Alkaline Phosphatase 68 U/L (45-117) 02/14/20 13:10 Amylase 98 U/L (25-115) 02/14/20 13:10 Lipase 138 U/L (73-393) 02/14/20 13:10 Home Medications: Losartan/Hydrochlorothiazide [Losartan-Hctz 100-25 mg Tab] 1 each PO DAILY 04/12/16 Celecoxib [Celebrex] 200 mg PO DAILY 02/15/20 Gabapentin 600 mg PO BID 02/15/20 Metoprolol Succinate [Toprol Xl] 50 mg PO DAILY 02/15/20 Albuterol Inhaler [Ventolin Inhaler*] 2 puff IH Q6H PRN #1 hfa.aer.ad 02/19/20 Benzonatate [Tessalon Perle*] 100 mg PO TID PRN #21 cap 02/19/20 predniSONE [Prednisone*] 20 mg PO BID #14 tab 02/19/20 New Medications: predniSONE [Prednisone*] 20 mg PO BID #14 tab Benzonatate [Tessalon Perle*] 100 mg PO TID PRN #21 cap PRN Reason: Cough Albuterol Inhaler [Ventolin Inhaler*] 2 puff IH Q6H PRN #1 hfa.aer.ad PRN Reason: Shortness Of Breath Diet: AHA
[2020-02-19 11:10] LABS: C-Reactive Protein 65.5 mg/L (<3.00)
[2020-02-19 12:45] VITALS: BP 105/55; TEMP 98.8; O2SAT 94
== END 2020-02-19 14:11 | disposition home or self-care (01) | DRG 177 ==
LOC: ER 12:04 → ERHOLD 15:25 → 4TH 19:33
PROVIDERS: ADMIT Family Medicine; ATTEND Internal Medicine
PROC: 8E0ZXY6 Isolation (ICD-10-PCS; principal; 2020-02-14)
PROC: 30233K1 Transfusion of Nonautologous Frozen Plasma into Peripheral Vein, Percutaneous Approach (ICD-10-PCS; 2020-02-17)
DX: U07.1 COVID-19 (principal); J12.89 Other viral pneumonia; J80 Acute respiratory distress syndrome; N17.9 Acute kidney failure, unspecified; Z68.41 Body mass index [BMI] 40.0-44.9, adult; I10 Essential (primary) hypertension; Z90.710 Acquired absence of both cervix and uterus; Z90.49 Acquired absence of other specified parts of digestive tract; Z88.1 Allergy status to other antibiotic agents; Z88.0 Allergy status to penicillin; Z79.899 Other long term (current) drug therapy; E87.6 Hypokalemia; F17.200 Nicotine dependence, unspecified, uncomplicated; N28.9 Disorder of kidney and ureter, unspecified; Z79.52 Long term (current) use of systemic steroids; E87.70 Fluid overload, unspecified; E66.9 Obesity, unspecified; R73.9 Hyperglycemia, unspecified
CPT/HCPCS: 36415; 71045; 76770; 80048; 80076; 81015; 82150; 82550; 82553; 82570; 82728; 82805; 83605; 83615; 83690; 83735; 83880; 84132; 84145; 84156; 84484; 84550; 85025; 85379; 85610; 85730; 86140; 86850; 86900; 86901; 87040; 87070; 87081; 87086; 87088; 87205; 87804; 93005; 94660; 94760; 96361; 96365; 96375; 99285; J0456; J0696; J1644; J1650; J1940; J2405; J7030; J7512

== ENCOUNTER 2022-11-16 06:01 | Emergency (ER) | payer OTHER ==
--- OUTSIDE RECORDS SUMMARY | 2022-11-16 06:04 | XMS REPORT | Continuity of Care Document ---
:1955 Author Organization [facility] t Address [address] [place] [address] Care Team Providers Name Role Phone Roni Andres MD Primary Care Physician [phone] ERIC CASPER Attending Clinician Unavailable JADE ANDERSON Attending Clinician Unavailable CECILE GASCA Attending Clinician Unavailable JESSE SEAY Attending Clinician Unavailable SANTA PIÑA Attending Clinician Unavailable ANUSHKA CUTLER Attending Clinician Unavailable ERIC CASPER Admitting Clinician Unavailable JADE ANDERSON Admitting Clinician Unavailable JESSE SEAY Admitting Clinician Unavailable Payers Payer Name Policy Type Policy Number Effective Date Expiration Date [facility] [id number] 2020 [facility] 00:00:00 PPO Problems Condition Condition Condition Status Onset Resolution Last Treating Co mments Source Name Details Category Date Date Treatment Clinician Date GI bleed GI bleed Disease Active Metho di 04-18 [facility] 00:00: Hospita 00 l Allergies, Adverse Reactions, Alerts Allergy Allergy Status Severity Reaction(s) Onset Inactive Treating Comm ents Source Name Type Date Date Clinician SULFA Drug Active Unknown-Cmnt Univ ers (SULFONA Class 3-08 ity of MIDE 00:00: [place] ANTIBIOT 00 Medical ICS) Branch PENICILL Drug Active Unknown-Cmnt Un angel INS Class 3-08 ity of 00:00: [place] 00 Medical Branch Penicill Propensi Active Itching Metho di ins ty to 04-18 st adverse 00:00: Hospita reaction 00 l s to drug Sulfa Propensi Active Itching Methodi (Sulfona ty to 04-18 st mide adverse 00:00: Hospita Antibiot reaction 00 l ics) s to drug Penicill Propensi Active Itching Metho di ins ty to 04-18 st adverse 00:00: Hospita reaction 00 l s to drug NO KNOWN Drug Active [facility] ALLERGIE Class ity of S [facility] Social History Social Habit Start Date Stop Date Quantity Comments Source Sex Assigned At [address] [facility] 00:00:00 00:00:00 Smoking Status Start Date Stop Date Source Tobacco smoking consumption unknown [facility] Medications Ordered Filled Start Stop Current Ordering Indication Dosage Frequency Signature Comments Components Source Medication Medication Date Date Medication? Clinician (SIG) Name Name losartan-hy Yes 1{tbl} QD Take 1 Me thodi drochloroth 7-[address] iazide 12:10: mouth Hospita (HYZAAR) 47 daily. l 100-25 mg per tablet losartan-hy Yes 1{tbl} QD Take 1 Me thodi drochloroth 7-[address] iazide 12:10: mouth [facility]ospita (HYZAAR) 47 daily. l 100-25 mg per tablet Procedures This patient has no known procedures. Plan of Care Planned Activity Planned Date Details Comments Source Future Scheduled 2022-10-31 SHINGLES VACCINES (1 [facility] Test 10:50:14 of 2) [code = SHINGLES VACCINES (1 of 2)] Future Scheduled 2022-10-31 65+ [facility]OC[facility] [facility] Test 10:50:14 VACCINE (1 - PCV) [code = 65+ PNEUMOCOCCAL VACCINE (1 - PCV)] Future Scheduled 2022-10-31 INFLUENZA VACCINE [facility] Test 10:50:14 [code = INFLUENZA VACCINE] Future Scheduled 2022-10-31 COLONOSCOPY SCREENING [facility] Test 10:50:14 [code = COLONOSCOPY SCREENING] Future Scheduled 2022-10-31 COVID-19 VACCINE (#1) [facility] Test 10:50:14 [code = COVID-19 VACCINE (#1)] Future Scheduled 2022-10-31 [facility] Test 10:50:14 SCREENING [code = BREAST CANCER SCREENING] Future Scheduled 2021-09-26 65+ [facility]OCOCCAL [facility] Test 13:27:16 VACCINE (1 of 1 - PPSV23) [code = 65+ PNEUMOCOCCAL VACCINE (1 of 1 - PPSV23)] Future Scheduled 2021-09-26 INFLUENZA VACCINE [facility] Test 13:27:16 [code = INFLUENZA VACCINE] Future Scheduled 2021-09-26 [facility] 13:27:16 [code = COLONOSCOPY SCREENING] Future Scheduled 2021-09-26 COVID-19 VACCINE (1) [facility] Test 13:27:16 [code = COVID-19 VACCINE (1)] Future Scheduled 2021-09-26 [facility] 13:27:16 SCREENING [code = BREAST CANCER SCREENING] Future Scheduled 2021-09-26 SHINGLES VACCINES (#1) [facility] Test 13:27:16 [code = SHINGLES VACCINES (#1)] Encounters Start End Encounter Admission Attending Care Care Encounter Source Date/Time Date/Time Type Type Clinicians Facility Department ID 2022-11-01 Outpatient [facility] [id number] [place] 15:36:10 [id number] [facility] 2022-06-03 Outpatient [facility] [id number] [place] 14:16:04 [id number] [facility] 2021-08-05 [id number] 04:04:39 ERIC [facility] 2020-12-26 2020-12-29 Inpatient [id number] 21:51:00 17:40:00 MURGUERO 2020-12-26 2020-12-26 Outpatient ELO [facility] PRICE [id number] [facility] 08:08:00 23:59:00 CECILE 2020-12-26 2020-12-26 Inpatient Roseann SEAY, [facility] PUL [id number] [facility] 15:07:00 21:00:00 JESSE 2020-12-23 2020-12-23 Outpatient [facility] [id number] [facility] 09:35:00 09:35:00 [facility] 2020-12-11 2020-12-11 [id number] [facility] 12:30:00 12:30:00 ERIC [facility] 2020-12-07 2020-12-07 [id number] [facility] 13:00:00 13:00:00 SANTA [facility] 2020-12-02 2020-12-02 [id number] [facility] 09:35:00 09:35:00 ANUSHKA [facility] Results This patient has no known results.
[2022-11-16 06:58] LABS: Absolute Lymphocytes (CBC) 1.8 K/uL (0.7-4.9); Hematocrit 29.4 % (36.0-45.0); Lymphocytes % 45.6 % (15.3-44.8); MPV 8.3 fL (7.6-11.3); RBC Red Blood Cell Count 3.07 M/uL (3.86-4.86)
[2022-11-16 07:02] LABS: Protime INR 1.08
[2022-11-16 07:15] LABS: Bilirubin Total 0.5 mg/dL (0.2-1.0); Potassium 3.5 mmol/L (3.5-5.1); Protein, Total 6.3 g/dL (6.4-8.2)
--- NOTE | 2022-11-16 08:03 | ER ---
Nurse's Notes [facility] Name: Toshia Armenta Age: 67 yrs Sex: Female : 1955 Arrival Date: 11/16/2022 Time: 06:05 Bed 16 Private MD: Diagnosis: GI Bleed/ Gastrointestinal hemorrhage, unspecified-lower;Anemia, unspecified;Obesity, unspecified Presentation: 11/16 06:06 Chief complaint: EMS states: Rectal bleeding started an hour ago with abdominal ke1 discomfort. 06:06 Method Of Arrival: [facility] ke1 06:16 Risk Assessment: Do you want to hurt yourself or someone else? Patient reports no ke1 desire to harm self or others. Onset of symptoms was November 16, 2022 at 05:00. 06:16 Acuity: CHARLI 3 ke1 06:30 Coronavirus screen: Vaccine status: Patient reports receiving the 2nd dose of the covid ke1 vaccine. Ebola Screen: No symptoms or risks identified at this time. Initial Sepsis Screen: Does the patient meet any 2 criteria? No. Patient's initial sepsis screen is negative. Does the patient have a suspected source of infection? No. Patient's initial sepsis screen is negative. Triage Assessment: 06:15 General: Appears uncomfortable, Behavior is appropriate for age. GI: Reports rectal ke1 bleeding, bloody stool. Historical: - Allergies: 06:07 PENICILLINS; ke1 06:07 Sulfa (Sulfonamide Antibiotics); ke1 - PMHx: 06:07 Diverticulitis; Hypertension; nerve pain; ke1 - Immunization history:: Adult Immunizations unknown. - Family history:: not pertinent. - Social history:: Smoking status: Patient denies any tobacco usage or history of. - Hospitalizations: : No recent hospitalization is reported. Screenin:15 [facility] ED Fall Risk Assessment (Adult) History of falling in the last 3 months, ke1 including since admission No falls in past 3 months (0 pts) Confusion or Disorientation No (0 pts) Intoxicated or Sedated No (0 pts) Impaired Gait No (0 pts) Mobility Assist Device Used No (0 pt) Altered Elimination No (0 pt) Score/Fall Risk Level 0 - 2 = Low Risk. Abuse screen: Denies threats or abuse. Nutritional screening: No deficits noted. Tuberculosis screening: No symptoms or risk factors identified. Assessment: 07:42 Reassessment: Patient appears in no apparent distress at this time. Patient and/or db family updated on plan of care and expected duration. Pain level reassessed. Patient is alert, oriented x 3, equal unlabored respirations, skin warm/dry/pink. patient to CT. Changed patient's bedside commode. Noted bright red jessi blood with clots with stool. Patient has soft stool that is runny with blood clots. General: Appears in no apparent distress. comfortable, Behavior is calm, cooperative. Pain: Denies pain. Neuro: Level of Consciousness is awake, alert, obeys commands, Oriented to person, place, time, situation. Respiratory: Airway is patent Respiratory effort is even, unlabored, Respiratory pattern is regular, symmetrical. GI: Stools are reported to be loose, bloody. Last BM was November 16, 2022. at 07:30. Reports bloody stool. 08:10 Reassessment: Patient appears in no apparent distress at this time. Patient and/or db family updated on plan of care and expected duration. Pain level reassessed. Patient is alert, oriented x 3, equal unlabored respirations, skin warm/dry/pink. patient with bowel movement. Noted bright red blood with soft stool. GI: Stools are reported to be loose. 08:52 Reassessment: Patient appears in no apparent distress at this time. patient with bowel db movement. Blood and soft stool noted. 09:15 Reassessment: No changes from previously documented assessment. patient signed consent db for transfer. 09:15 Reassessment: patient reports dizziness with standing or sitting up. Asked patient to db call nurse for assistance with bed lu and educated patient of importance of calling nurse. Patient states will call. 09:18 Reassessment: Dr. Carrasco at patient bedside. Notified Dr. Carrasco of patient BP. db Will place another IV. 09:55 Reassessment: Patient appears in no apparent distress at this time. Patient is alert, db oriented x 3, equal unlabored respirations, skin warm/dry/pink. patient assisted to bedpan. Patient cleaned. Noted bright red soft stool with clots. 10:27 Reassessment: Patient appears in no apparent distress at this time. Patient and/or db family updated on plan of care and expected duration. Pain level reassessed. Patient is alert, oriented x 3, equal unlabored respirations, skin warm/dry/pink. bedside report given to [facility]. Vital Signs: 06:30 BP 109 / 57; Pulse 76; Resp 17; Temp 97.9; Pulse Ox 100% on R/A; Weight 113.4 kg; ke1 Height 5 ft. 6 in. (167.64 cm); Pain 0/10; 07:53 BP 104 / 57; Pulse 67; Resp 18; Pulse Ox 100% on R/A; db 08:00 BP 103 / 67; Pulse 69; Resp 18; Pulse Ox 100% on R/A; db 08:30 BP 103 / 57; Pulse 77; Resp 18; Pulse Ox 98% on R/A; db 09:05 BP 99 / 50; Pulse 78; Resp 18; Pulse Ox 98% on R/A; db 10:20 BP 100 / 57; Pulse 85; Resp 18; Pulse Ox 98% on R/A; db 06:30 Body Mass Index 40.35 (113.40 kg, 167.64 cm) ke1 09:05 MAP 64 db Vitals: 08:30 Cardiac Rhythm Assessment Regular Sinus rhythm. db ED Course: 06:05 Patient arrived in ED. rv1 06:05 Lazara Rome, RN is Primary Nurse. ke1 06:08 Duane Galloway MD is Attending Physician. rn 06:17 Triage completed. ke1 06:47 Maintain EMS IV. Gauge \T\ site: 20 g LAC. ke1 06:49 Arm band placed on right wrist. ke1 06:49 Bed in low position. Side rails up X 1. ke1 07:20 Maintain EMS IV. Site clean \T\ dry. Flushed. db 07:37 Attending Physician role handed off by Duane Galloway MD cira 07:37 Meño Carrasco MD is Attending Physician. cira 07:46 initiated a transfer with Kate Germain from the [facility] Transfer [place]. eb 07:50 CT Abd/Pelvis - IV Contrast Only In Process Unspecified. EDMS 08:02 connected the GI field identification specialist for [facility] with Dr. Carrasco for patient eb transfer consultation. 08:[address] Carrasco with Giles Bajwa from the [facility] transfer center. eb 08:20 connected the hospitalist field identification specialist for [facility] with Dr. Carrasco for patient eb transfer consultation. 08:[address] Navarro the hospitalist field identification specialist for [facility] with Dr. Carrasco for eb patient transfer consultation. 08:50 [address] Kate Germain [address] [facility] will have to decline the patient in transfer due to eb being at capacity. 08:55 administrative approval given by Giles Muir/ patient has been accepted to [facility] Lesly John 10 c 1051/ Dr. Francia Navarro has accepted the patient in transfer/ report to be called to [phone]. 09:20 Report given to NORMAN Alcala on 10C at [facility]. db 09:55 Missed attempt(s): 20 gauge in right forearm. bc6 10:02 Missed attempt(s): 20 gauge in right antecubital area. db 10:19 Inserted saline lock: 22 gauge in right hand, using aseptic technique. ,using aseptic db technique. placed by NORMAN ARRIAGA. 10:29 No provider procedures requiring assistance completed. Patient transferred, IV remains db in place. Administered Medications: 09:00 Drug: Flagyl (metroNIDAZOLE) 500 mg Volume: 100 ml; Route: IVPB; Rate: 200 ml/hr; db Infused Over: 30 mins; Site: left antecubital; 09:35 Follow up: Response: No adverse reaction; IV Status: Completed infusion; IV Intake: db 100ml 09:44 Follow up: Response: No adverse reaction; IV Status: Completed infusion; IV Intake: db 100ml 09:00 Drug: NS 0.9% 1000 ml Route: IV; Rate: 125 ml/hr; Site: left antecubital; db 10:30 Follow up: Response: No adverse reaction; IV Status: Infusion continued upon transfer db 09:00 Drug: Pepcid (famotidine) 20 mg Route: IVP; Site: left antecubital; db 10:29 Follow up: Response: No adverse reaction db 09:43 Drug: Cipro (ciprofloxacin) 400 mg Volume: 200 ml; Route: IVPB; Infused Over: 60 mins; db Site: left antecubital; 10:30 Follow up: IV Status: Infusion continued upon transfer db 10:20 Drug: NS 0.9% 500 ml Route: IV; Rate: bolus; Site: right hand; db 10:29 Follow up: IV Status: Infusion continued upon transfer db Medication: 07:44 VIS not applicable for this client. db Intake: 09:35 IV: 100ml; Total: 100ml. db 09:44 IV: 100ml; Total: 200ml. db Outcome: 08:03 ER care complete, transfer ordered by MD. denis 10:28 Transferred by ground EMS to [facility], Transfer form db completed. 10:28 Condition: stable 10:28 Instructed on the need for transfer. 10:38 Patient left the ED. db Signatures: Dispatcher [employer] EDMS Meño Carrasco MD MD cha Nieto, Roman, MD MD rn Botello, Elizabeth eb Ebrottie, Kouassi RN RN ke1 Aarti Darby RN RN Gwen Walker rv1 Mayte Lombardi 6
--- NOTE | 2022-11-16 08:03 | EDPHYS ---
Physician Documentation [facility] Name: Toshia Armenta Age: 67 yrs Sex: Female : 1955 Arrival Date: 11/16/2022 Time: 06:05 Bed 16 Private MD: ED Physician Meño Carrasco HPI: 11/16 06:33 This 67 yrs old Black Female presents to ER via EMS with complaints of rectal bleeding. rn 06:33 The patient presents to the emergency department with rectal bleeding, a moderate rn amount, maroon blood with BM. Onset: The symptoms/episode began/occurred this morning. Abdominal pain: none is appreciated. 06:35 Modifying factors: The symptoms are alleviated by nothing, the symptoms are aggravated rn by nothing. Associated signs and symptoms: Pertinent positives:. 06:35 Severity of symptoms: At their worst the symptoms were moderate in the emergency rn department the symptoms are unchanged. The patient has experienced similar episodes in the past. The patient has not recently seen a physician. Pt reports maroon blood with BM x 4 episodes today. Has had several episodes like this in past, usually stops on its own, has had GI scopes without clear answers. Only takes aspirin. NO abd pain. . Historical: - Allergies: 06:07 PENICILLINS; ke1 06:07 Sulfa (Sulfonamide Antibiotics); ke1 - PMHx: 06:07 Diverticulitis; Hypertension; nerve pain; ke1 - Immunization history:: Adult Immunizations unknown. - Family history:: not pertinent. - Social history:: Smoking status: Patient denies any tobacco usage or history of. - Hospitalizations: : No recent hospitalization is reported. ROS: 06:35 Constitutional: Negative for fever, chills, and weight loss, Cardiovascular: Negative rn for chest pain, palpitations, and edema, Respiratory: Negative for shortness of breath, cough, wheezing, and pleuritic chest pain, Abdomen/GI: + rectal bleeding Back: Negative for injury and pain, MS/Extremity: Negative for injury and deformity, Skin: Negative for injury, rash, and discoloration, Neuro: Negative for headache, weakness, numbness, tingling, and seizure. Exam: 06:35 Constitutional: This is a well developed, well nourished patient who is awake, alert, rn and in no acute distress. Cardiovascular: Regular rate and rhythm. No pulse deficits. Respiratory: No increased work of breathing, no retractions or nasal flaring. Abdomen/GI: Soft, non-tender 08:56 ECG was reviewed by the Attending Physician. [facility] Vital Signs: 06:30 BP 109 / 57; Pulse 76; Resp 17; Temp 97.9; Pulse Ox 100% on R/A; Weight 113.4 kg; ke1 Height 5 ft. 6 in. (167.64 cm); Pain 0/10; 07:53 BP 104 / 57; Pulse 67; Resp 18; Pulse Ox 100% on R/A; db 08:00 BP 103 / 67; Pulse 69; Resp 18; Pulse Ox 100% on R/A; db 08:30 BP 103 / 57; Pulse 77; Resp 18; Pulse Ox 98% on R/A; db 09:05 BP 99 / 50; Pulse 78; Resp 18; Pulse Ox 98% on R/A; db 10:20 BP 100 / 57; Pulse 85; Resp 18; Pulse Ox 98% on R/A; db 06:30 Body Mass Index 40.35 (113.40 kg, 167.64 cm) ke1 09:05 MAP 64 db MDM: 06:08 Patient medically screened. rn 08:00 Differential diagnosis: diverticulitis, hemorrhoids, hemorrhagic shock. Data reviewed: [facility] vital signs, nurses notes, lab test result(s), CBC, electrolytes, hepatic panel, urinalysis, EKG. Consideration of Admission/Observation Patient was admitted/placed on observation. Escalation of care including admission/observation considered. Management of patient was discussed with the following: Maintenance Services Dispatcher: martha fulton conductor and engineer. I considered the following discharge prescriptions or medication management in the emergency department Medications were administered in the Emergency Department. See DEC. 11/16 06:29 Order name: CBC with Diff; Complete Time: 07:38 rn 11/16 06:29 Order name: CMP; Complete Time: 07:38 rn 11/16 06:29 Order name: Lipase; Complete Time: 07:38 rn 11/16 06:29 Order name: Protime (+inr); Complete Time: 07:38 rn 11/16 06:29 Order name: Ptt, Activated; Complete Time: 07:38 rn 11/16 06:30 Order name: Type And Screen; Complete Time: 09:15 rn 11/16 06:29 Order name: CT Abd/Pelvis - IV Contrast Only; Complete Time: 08:05 rn 11/16 07:43 Order name: SARS RAPID; Complete Time: 10:06 eb 11/16 08:13 Order name: CBC with Diff; Complete Time: 09:15 eb 11/16 06:29 Order name: IV Saline Lock; Complete Time: 06:47 rn 11/16 06:29 Order name: Labs collected and sent; Complete Time: 06:53 rn 11/16 07:38 Order name: IV Saline Lock - Large Bore; Complete Time: 09:19 cira 11/16 07:38 Order name: EKG; Complete Time: 07:39 cira 11/16 07:38 Order name: EKG - Nurse/Tech; Complete Time: 08:54 [facility] EC:56 Rate is 67 beats/min. Rhythm is regular. QRS [place] is Normal. MS interval is normal. QRS cira interval is normal. QT interval is normal. No Q waves. T waves are Normal. No ST changes noted. Clinical impression: NSR w/ Non-specific ST/T Changes and No evidence of ischemia. Interpreted by me. Reviewed by me. Administered Medications: 09:00 Drug: Flagyl (metroNIDAZOLE) 500 mg Volume: 100 ml; Route: IVPB; Rate: 200 ml/hr; db Infused Over: 30 mins; Site: left antecubital; 09:35 Follow up: Response: No adverse reaction; IV Status: Completed infusion; IV Intake: db 100ml 09:44 Follow up: Response: No adverse reaction; IV Status: Completed infusion; IV Intake: db 100ml 09:00 Drug: NS 0.9% 1000 ml Route: IV; Rate: 125 ml/hr; Site: left antecubital; db 10:30 Follow up: Response: No adverse reaction; IV Status: Infusion continued upon transfer db 09:00 Drug: Pepcid (famotidine) 20 mg Route: IVP; Site: left antecubital; db 10:29 Follow up: Response: No adverse reaction db 09:43 Drug: Cipro (ciprofloxacin) 400 mg Volume: 200 ml; Route: IVPB; Infused Over: 60 mins; db Site: left antecubital; 10:30 Follow up: IV Status: Infusion continued upon transfer db 10:20 Drug: NS 0.9% 500 ml Route: IV; Rate: bolus; Site: right hand; db 10:29 Follow up: IV Status: Infusion continued upon transfer db Disposition Summary: 11/16/22 08:03 Transfer Ordered Transfer Location: [facility] cira Reason: Higher level of care ciar Condition: Fair cira Problem: new cira Symptoms: are unchanged cira Accepting Physician: to [facility](11/16/22 10:38) db Diagnosis - GI Bleed/ Gastrointestinal hemorrhage, unspecified - lower cira - Anemia, unspecified cira - Obesity, unspecified cira Forms: - Medication Reconciliation Form cira - SBAR form cira Signatures: Dispatcher [employer] EDMeño Root MD MD cha Nieto, Roman, MD MD rn Ebrottie, Kouassi, RN RN keAarti Guerrier RN RN db Corrections: (The following items were deleted from the chart) 08: 08:03 to [facility] cira cira 10:38 08:23 to [facility] cira db
--- NOTE | 2022-11-16 08:04 | RAD REPORT ---
EXAM DESCRIPTION: CTAbdomen Pelvis W Contrast - 11/16/2022 7:48 am CLINICAL HISTORY: rectal bleeding COMPARISON: Abdomen Pelvis W Contrast dated 06/12/2019; Abdomen Pelvis W Contrast dated 04/18/2016; Abdomen Pelvis W Contrast dated 04/11/2016; CT ABD PELVIS W CONTRAST dated 03/02/2015 TECHNIQUE: CT of the abdomen and pelvis was performed without IV contrast. All CT scans are performed using dose optimization technique as appropriate and may include automated exposure control or mA/KV adjustment according to patient size. FINDINGS: Lower chest: Small hiatal hernia Liver: No acute abnormality or suspicious lesions. Biliary: No biliary ductal dilatation. Stomach: No significant focal abnormality. Duodenum: No significant focal abnormality. Pancreas: No significant abnormality. Spleen: Unchanged splenic lesion that is almost certainly benign. Adrenal: No suspicious lesions. Kidney/ureter: No hydronephrosis. 2 mm stone in left kidney. Too small to characterize and/or benign appearing renal lesions are noted. Retroperitoneum: No retroperitoneal adenopathy. Vascular: No aneurysm. Atherosclerosis. Bowel: Sigmoid anastomosis.. Diverticulosis without diverticulitis. In the proximal transverse colon, hyperdense contents in the lumen of the colon located peripherally around bowel content. From the ar terial to portal venous phase, this slightly increases. Peritoneum: No ascites or free air. Small fat containing umbilical hernia. Bladder: Grossly unremarkable. Reproductive: Cholecystectomy Bones: No acute fracture. Other: n/a IMPRESSION: Hyperdense contents in the periphery of the bowel lumen at the proximal transverse colon . Though this could be related to ingested material, it could also be secondary to an active gastroin testinal bleed. A nuclear medicine bleeding scan could confirm. Alternatively, a repeat short term CT with and without IV contrast (no oral contrast) could be obtained to better evaluate.
[2022-11-16 08:45] LABS: Absolute Lymphocytes (CBC) 2.2 K/uL (0.7-4.9); Hematocrit 28.3 % (36.0-45.0); MCV 97.1 fL (80-100); MPV 8.4 fL (7.6-11.3); RBC Red Blood Cell Count 2.91 M/uL (3.86-4.86)
[2022-11-16] MEDS ORDERED: METRONIDAZOLE 500mg IVPB 500 MG/100 ML BAG IV ONE (09:07)
[2022-11-16] MEDS ORDERED: NA CHLORIDE 0.9% 1,000 ML ONE (09:07)
[2022-11-16] MEDS ORDERED: CIPROFLOXACIN 400mg IV 400 MG/200 ML BAG IV ONE (09:07)
[2022-11-16] MEDS ORDERED: FAMOTIDINE 20 MG/2 ML VIAL IV ONE (09:07)
[2022-11-16 09:43] LABS: SARS-CoV-2 Antigen Rapid Res Negative (Negative)
[2022-11-16] MEDS ORDERED: NA CHLORIDE 0.9% 500 ML ONE (10:24)
[2022-11-16 10:55] VITALS: TEMP 97.9
[2022-11-16 11:03] VITALS: O2SAT 98
[2022-11-16 11:05] VITALS: BP 100/57
--- NOTE | 2022-11-19 17:22 | EKG ---
Test Date: 2022-11-16 Test Time: 08:09:08 Chief Hydroelectric Station Operator: CLARY MEASUREMENT RESULTS: Intervals: Rate: 67 WI: 190 QRSD: 64 QT: 424 QTc: 448 [place]: P: 60 WI: 190 QRS: -51 T: 42 INTERPRETIVE STATEMENTS: Normal sinus rhythm Left axis deviation Inferior infarct, age undetermined Possible Anterolateral infarct, age undetermined Abnormal ECG Compared to ECG 02/14/2020 14:47:45 No significant changes Electronically Signed On 11-19-22 17:15:22 COLLABORATING SUPERVISING PHYSICIAN by Reji Tucker
== END 2022-11-16 10:38 | disposition short-term general hospital (02) ==
LOC: ER 06:01
DX: K92.2 Gastrointestinal hemorrhage, unspecified (principal); D64.9 Anemia, unspecified; E66.9 Obesity, unspecified; I10 Essential (primary) hypertension; Z68.41 Body mass index [BMI] 40.0-44.9, adult; Z20.822 Contact with and (suspected) exposure to COVID-19; Z88.0 Allergy status to penicillin; Z88.2 Allergy status to sulfonamides
CPT/HCPCS: 96365; 96367; 85025 ×2; 36415; 86900; 86850; 85610; 86901; 85730; 83690; 80053; 74177; 96375; 99285; 87811; Q9967; J7040; J7030; J0744; 93005

== ENCOUNTER 2023-08-28 17:32 | Emergency (ER) | payer OTHER ==
--- OUTSIDE RECORDS SUMMARY | 2023-08-28 17:38 | XMS REPORT | Continuity of Care Document ---
:[address] [facility] t Address [address] [place] [address] Care Team Providers Name Role Phone Mckenna CHEEK, Roni Primary Care Physician [phone] YANET MASCORRO Attending Clinician Unavailable ERIC CASPER Attending Clinician Unavailable Ashly CHEEK, Rosario Ayoub Attending Clinician [phone] Sandhya AUSTIN, Beka Pugh Attending Clinician Unavailable NADIRA MILLER Attending Clinician Unavailable NADIRA MILLER Attending Clinician Unavailable Kalpana Rivers MD Attending Clinician Talha Vila MD Attending Clinician Cathleen CHEEK, Yordy Attending Clinician Milo AUSTIN, Kelly Elder Attending Clinician Unavailable Tiffanie CHEEK, Melissa Attending Clinician Chelle CHEEK, Mario Attending Clinician Sohail CHEEK, Bharat Pugh Attending Clinician Niko CHEEK, Zoila Attending Clinician Usama Parada MD Attending Clinician Norman Rodriguez MD Attending Clinician JADE ANDERSON Attending Clinician Unavailable CECILE GASCA Attending Clinician Unavailable JESSE SEAY Attending Clinician Unavailable S[place]A [place]ÑA Attending Clinician Unavailable ANUSHKA CUTLER Attending Clinician Unavailable YANET MASCORRO Admitting Clinician Unavailable ERIC CASPER Admitting Clinician Unavailable TALHA VILA Admitting Clinician Unavailable Talha Vila MD Admitting Clinician MELISSA SMITH Admitting Clinician Unavailable Melissa Smith MD Admitting Clinician JADE ANDERSON Admitting Clinician Unavailable JESSE SEAY Admitting Clinician Unavailable Payers Payer Name Policy Type Policy Number Effective Date Expiration Date S annette [facility] POS [id number] 2022 [facility] 00:00:00 [facility] [id number] 2020 [facility] [place] 00:00:00 PPO Problems Condition Condition Condition Status Onset Resolution Last Treating Co mments Source Name Details Category Date Date Treatment Clinician Date Acute Acute Disease Active Univers lower GI lower GI 2-14 ity of bleeding bleeding 00:00: Medical Branch Gastrointe Gastrointe Disease Active U nivers stinal stinal 2-11 [place] associated associated 00 Me dical with with Branch anorectal anorectal source source Arthritis Arthritis Disease Active Uni vers of knee, of knee, 3-10 ity of right right 00:00: [place] 00 Medical Branch GI bleed GI bleed Disease Active [facility] di 7-14 st 00:[facility]: [facility]ospita 00 l Allergies, Adverse Reactions, Alerts Allergy Allergy Status Severity Reaction(s) Onset Inactive Treating Comm ents Source Name Type Date Date Clinician SULFA Drug Active Unknown-Cmnt Univ ers (SULFONA Class 3-08 ity of MIDE 00:00: [place] ANTIBIOT 00 Medical ICS) Branch PENICILL Drug Active Unknown-Cmnt Un angel INS Class 3-08 ity of 00:00: [place] 00 Medical Branch Penicill Propensi Active Unknown - Informati Univers ins ty to See comments 3- on not ity of adverse 00:00: provided [place] reaction 00 Medical s Branch Sulfa Propensi Active Unknown - Informati Un angel (Sulfona ty to See comments 12-11 on not it y of mide adverse 00:00: provided [place] Antibiot reaction 00 Medica l ics) s Branch Penicill Propensi Active Itching Metho di ins ty to 04-18 adverse 00:00: Hospita reaction 00 l s to drug Sulfa Propensi Active Itching Methodi (Sulfona ty to 04-18 mide adverse 00:00: Hospita Antibiot reaction 00 l ics) s to drug Penicill Propensi Active Itching Metho di ins ty to 04-18 adverse 00:00: Hospita reaction 00 l s to drug PENICILL [facility]ergy Active [facility] Penicill Drug Active [facility] NO KNOWN Drug Active Univers ALLERGIE Class ity of [facility] [place] [facility] Family History Family Member Diagnosis Comments Start Date Stop Date Source Natural brother Arthritis [facility] Natural brother defects [facility] Natural brother Drug abuse [facility] Natural brother Mental retardation C [facility] Natural daughter Diabetes [facility] Natural daughter Vision loss [facility] Natural father Arthritis [facility] Natural father Cancer [facility] Natural father Hypertension [facility] Natural mother Heart disease [facility] Natural mother Hypertension [facility] Natural mother Learning disabilities [facility] Natural sister Arthritis [facility] Natural sister Mental illness [facility] Natural son Diabetes [facility] Natural son Unremarkable [facility] Social History Social Habit Start Date Stop Date Quantity Comments Source History SDOH Social Unive rsity of [facility] ical Together Branch History SDOH Social Unive rsity of [facility] Branch History SDOH Social Unive rsity of [facility] Medical Membership Branch History SDOH Social Unive rsity of [facility] [place] Medical Meetings Branch Gender identity Universit y of [facility] Sexual orientation [facility] History of tobacco Smokes tobacco [facility] use daily Medical Center Alcohol intake 2023-01-05 2023-01-05 .29 /d [facility]00 Medical Center Exposure to 2022-11-09 2022-11-19 Not sure University of SARS-CoV-2 (event) 00:00:00 01:00:00 [place] [facility] History SDOH 2022-11-19 2022-11-19 1 University o f Alcohol Frequency 00:00:00 00:00:00 [place] M edical Branch History SDOH 2022-11-19 2022-11-19 0 University o f Alcohol Std Drinks 00:00:00 00:00:00 [place] [facility] History SDOH 2022-11-19 2022-11-19 1 University o f Alcohol Binge 00:00:00 00:00:00 [place] Medic al Branch History SDOH Social 2022-11-19 2022-11-19 5 Unive rsity of Connections Phone 00:00:00 00:00:00 [place] M edical Branch History SDOH Social 2022-11-19 2022-11-19 3 Unive rsity of [facility] Living 00:00:00 00:00:00 [place] [facility] History SDOH 2022-11-19 2022-11-19 5 University o f Physical Activity 00:00:00 00:00:00 [place] M edical DPW Branch History SDOH 2022-11-19 2022-11-19 3 University o f Physical Activity 00:00:00 00:00:00 [place] M edical MPS Branch History SDOH 2022-11-19 2022-11-19 5 University o f Financial 00:00:00 00:00:00 [place] [facility] History SDOH Food 2022-11-19 2022-11-19 1 Univers ity of Worry 00:00:00 00:00:00 [place] [facility] History SDOH Food 2022-11-19 2022-11-19 1 Univers ity of Scarcity 00:00:00 00:00:00 [place] [facility] History SDOH 2022-11-19 2022-11-19 2 University o f Transport Med 00:00:00 00:00:00 [place] Medic al Branch History SDOH 2022-11-19 2022-11-19 2 University o f Transport Non-Med 00:00:00 00:00:00 [place] M edical Branch History of Social 2020-12-13 2020-12-13 Univers ity of function 00:00:00 00:00:00 [facility] Tobacco use and 2020-12-12 2020-12-12 Smokeless Universit y of exposure 00:00:00 00:00:00 tobacco non-user [facility] dical [place] Alcohol Comment 2013-04-04 2013-04-[address] [facility] 00:00:00 00:00:00 [facility] Cigarettes smoked 2013-04-04 2013-04-[address] [facility] current (pack per 00:00:00 00:00:00 [facility] day) - Reported Cigarette 2013-04-04 2013-04-[address] [facility] pack-years 00:00:00 00:00:00 [facility] Sex Assigned At [address] [facility] 00:00:00 00:00:00 [facility] Smoking Status Start Date Stop Date Source Tobacco smoking consumption [facility] unknown Never smoked tobacco [facility] Smokes tobacco daily 2013-04-04 00:00:00 [facility] Medications Ordered Filled Start Stop Current Ordering Indication Dosage Frequency Signature Comments Components Source Medication Medication Date Date Medication? Clinician (SIG) Name Name pantoprazol Yes 40mg 40 mg, Univ ers e 2-17 Oral, ity of (PROTONIX) 15:00: DAILY, [place] EC tablet 00 First dose Medi rosalind 40 mg on Fri Branch 11/22/22 at 0900, Until Discontinu ed, Routine Sliding Yes Subcutaneo Univ ers Scale 2-16 us, TID ity of Insulin - 18:00: MEALS+HS, Jose as Lispro 00 First dose Medical (HumaLOG) + on [place] Branch Fsbg 11/21/22 at Testing 1200, Until Discontinu ed, Routine dextrose Yes 250mL 250 mL, IV Un angel 10% (D10W) 2-16 Infusion, ity of bolus 15:28: PRN - SEE [place] infusion 04 INSTRUCTIO Medic al 250 mL NS, Branch Administer over 60 Minutes, Other, If blood glucose is < or = 70 mg/dL and patient is unable to swallow or has mental status changes, Starting on [place] 11/21/22 at 0928
If blood glucose is < or = 70 mg/dL and patient is unable to swallow or has mental status changes (Give glucagon order if patient needs fluid restrictio n): IF IV access available: Dextrose 10%. 1. 125 mL (? bag) of D10W IV infusion - equivalent to 12.5 g dextrose 2. Blood glucose - draw blood glucose 15 minutes after D10W Administra tion. 3. If blood glucose is < 80 mg/dL, repeat.
glucagon Yes 1mg 1 mg, Univers (GLUCAGEN 2-16 Intramuscu ity of DIAGNOSTIC 15:27: [place], PRN, [place] KIT) 59 Starting Medical injection 1 on [place] Branch mg 11/21/22 at 0927, Until Discontinu ed, FLOWER, Blood Glucose < or = 70 mg/dL and patient is NPO, unable to swallow or has mental changes. losartan-hy Yes 1{tbl} Take 1 Un angel drochloroth 2-16 tablet by ity of iazide 14:26: mouth [place] 100-25 mg 02 daily. Medical per tablet Branch gabapentin Yes 600mg Take 600 Un angel ER 600 mg 2-16 mg by ity of tablet, 14:26: mouth 2 [place] extended 02 (two) Medical release 24 times Branch hr daily. celecoxib Yes 200mg Take 200 Uni vers (CELEBREX) 2-16 mg by ity of 100 mg 14:26: mouth 2 [place] capsule 02 (two) Medical times Branch daily with meals. metoprolol 0 Yes 50mg Take 50 mg U nivers succinate 2-16 by mouth ity of XL 50 mg 24 14:26: [place]. [place] hr tablet Medical Branch Omeprazole Yes 20mg Take 20 mg U nivers 20 mg 2-16 by mouth ity of tablet 14:26: daily. [place] [address] Medical Branch aspirin 81 2022-0 Yes 81mg Take 81 mg U nivers mg chewable 2-16 by mouth ity of tablet 14:26: daily. [place] [address] Medical Branch diphenhydrA 2022-0 Yes 25mg Take 25 mg Univers MINE 25 mg 2-16 by mouth ity o f capsule 14:26: at [place] [address] bedtime. Medical Sleep Branch losartan-hy 2022-0 Yes 1{tbl} Take 1 Un angel drochloroth 2-16 tablet by ity of iazide 14:26: mouth [place] 100-25 mg 02 daily. Medical per tablet Branch gabapentin 2022-0 Yes 600mg Take 600 Un angel ER 600 mg 2-16 mg by ity of tablet, 14:26: mouth 2 [place] extended 02 (two) Medical release 24 times Branch hr daily. celecoxib 2022-0 Yes 200mg Take 200 Uni vers (CELEBREX) 2-16 mg by ity of 100 mg 14:26: mouth 2 [place] capsule 02 (two) Medical times Branch daily with meals. metoprolol 2022-0 Yes 50mg Take 50 mg U nivers succinate 2-16 by mouth ity of XL 50 mg 24 14:26: [place]. [place] hr tablet Medical Branch Omeprazole 2022-0 Yes 20mg Take 20 mg U nivers 20 mg 2-16 by mouth ity of tablet 14:26: daily. [place] [address] Medical Branch aspirin 81 2022-0 Yes 81mg Take 81 mg U nivers mg chewable 2-16 by mouth ity of tablet 14:26: daily. [place] [address] Medical Branch diphenhydrA 2022-0 Yes 25mg Take 25 mg Univers MINE 25 mg 2-16 by mouth ity o f capsule 14:26: at [place] [address] bedtime. Medical Sleep Branch losartan-hy 2022-0 Yes 1{tbl} Take 1 Un angel drochloroth 2-16 tablet by ity of iazide 14:26: mouth [place] 100-25 mg 02 daily. Medical per tablet Branch gabapentin 2022-0 Yes 600mg Take 600 Un angel ER 600 mg 2-16 mg by ity of tablet, 14:26: mouth 2 [place] extended 02 (two) Medical release 24 times Branch hr daily. celecoxib 2022-0 Yes 200mg Take 200 Uni vers (CELEBREX) 2-16 mg by ity of 100 mg 14:26: mouth 2 [place] capsule 02 (two) Medical times Branch daily with meals. metoprolol 2023-0 Yes 50mg Take 50 mg U nivers succinate 2-16 by mouth ity of XL 50 mg 24 14:26: [place]. [place] hr tablet Medical Branch Omeprazole Yes 20mg Take 20 mg U nivers 20 mg 2-16 by mouth ity of tablet 14:26: daily. [address] aspirin 81 Yes 81mg Take 81 mg U nivers mg chewable 2-16 by mouth ity of tablet 14:26: daily. [address] Branch diphenhydrA Yes 25mg Take 25 mg Univers MINE 25 mg 2-16 by mouth ity o f capsule 14:26: at [place] [address] bedtime. Medical Sleep Branch losartan-hy Yes 1{tbl} Take 1 Un angel drochloroth 2-16 tablet by ity of iazide 14:26: mouth [place] 100-25 mg 02 daily. Medical per tablet Branch gabapentin Yes 600mg Take 600 Un angel ER 600 mg 2-16 mg by ity of tablet, 14:26: mouth 2 [place] extended 02 (two) Medical release 24 times Branch hr daily. celecoxib Yes 200mg Take 200 Uni vers (CELEBREX) 2-16 mg by ity of 100 mg 14:26: mouth 2 [place] capsule 02 (two) Medical times Branch daily with meals. metoprolol Yes 50mg Take 50 mg U nivers succinate 2-16 by mouth ity of XL 50 mg 24 14:26: daily. [place] hr tablet [facility] Omeprazole Yes 20mg Take 20 mg U nivers 20 mg 2-16 by mouth ity of tablet 14:26: daily. [address] aspirin 81 Yes 81mg Take 81 mg U nivers mg chewable 2-16 by mouth ity of tablet 14:26: daily. [address] diphenhydrA Yes 25mg Take 25 mg Univers MINE 25 mg 2-16 by mouth ity o f capsule 14:26: at [place] [address] bedtime. Medical Sleep Branch atorvastati Yes 40mg 40 mg, Univ ers n (LIPITOR) 2-15 Oral, QHS, it y of tablet 40 03:00: First dose [place] mg 00 on [facility] 11/19/22 at Branch 2100, Until Discontinu ed, Routine atorvastati 3-0 Yes 40mg 40 mg, Univ ers n (LIPITOR) 2-15 Oral, QHS, it y of tablet 40 03:00: First dose [place] mg 00 on Fri [facility] 11/19/22 at Branch 2100, Until Discontinu ed, Routine bisacodyL 2023-0 Yes 10mg 10 mg, Univer s (DULCOLAX) 2-14 Oral, ity of tablet 10 22:30: PRE-PROCED [place] mg 00 URE ONCE, Medical 1 dose, Branch Starting on Fri11/19/22 at 1630, Until Discontinu ed, Routine, Bowel Prep, Colonoscop y simethicone 2022-0 2023- No PRN, Unive rs (GAS RELIEF 2-14 -14 Starting ity of (SIMETHICON 20:04: 21:02 on Fri Jose as E)) 40 00 :55 11/19/22 at Medical mg/0.6 mL 1404, Branch drops Until Fri11/19/22 at 1502, Routine, Intra-op bisacodyL 3-0 Yes 10mg 10 mg, Univer s (DULCOLAX) 2-14 Oral, ity of tablet 10 19:00: PRE-PROCED [place] mg 00 URE ONCE, Medical 1 dose, Branch Starting on Fri11/19/22 at 1300, Until Discontinu ed, Routine, Bowel Prep, Colonoscop y acetaminoph 3-0 Yes 650mg 650 mg, Un angel en 2-14 Oral, ity of (TYLENOL) 17:19: Q6HPRN, [place] tablet 650 53 Starting Medic al mg on Fri [place] 11/19/22 at 1119, Until Discontinu ed, Routine, Pain (scale 1-3) acetaminoph 2023-0 Yes 650mg 650 mg, Un angel en 2-14 Oral, ity of (TYLENOL) 17:19: Q6HPRN, [place] tablet 650 53 Starting Medic al mg on Fri [place] 11/19/22 at 1119, Until Discontinu ed, Routine, Pain (scale 1-3) peg-electro 2023-0 Yes 4000mL 4,000 mL, Univers lyte soln 2-14 Oral, PRN ity o f (GOLYTELY) 14:22: - SEE [place] [phone] INSTRUCTIO In dical .74 -5.86 NS, Branch gram Starting solution on Fri 4,000 mL 11/19/22 at 0822, Until Discontinu ed, Routine, Bowel Prep, colonoscop y ondansetron 2022-0 Yes 4mg 4 mg, Slow Univers (ZOFRAN 2-14 IV Push, ity of (PF)) 14:22: Q6HPRN, [place] injection 4 52 Starting Medi rosalind mg on Fri Branch 11/19/22 at 0822, Until Discontinu ed, Routine, Nausea and Vomiting (N/V) ondansetron 2022-0 Yes 4mg 4 mg, Slow Univers (ZOFRAN 2-14 IV Push, ity of (PF)) 14:22: Q6HPRN, [place] injection 4 52 Starting Medi rosalind mg on Branch 11/19/22 at 0822, Until Discontinu ed, Routine, Nausea and Vomiting (N/V) pantoprazol 2022-0 Yes 40mg 40 mg, Univ ers e 214 Slow IV ity of (PROTONIX) 12:45: Push, Q12H [place] injection 00 ABX, First Medi rosalind 40 mg dose on Branch Fri11/19/22 at 0645, Until Discontinu ed pantoprazol 2022- No 40mg 40 mg, Uni vers e 11-19 02-16 Slow IV ity of (PROTONIX) 12:45: 15:29 Push, Q12H [place] injection 00 :36 ABX, First Medi rosalind 40 mg dose on Branch Fri11/19/22 at 0645, Until Discontinu ed lactated 2022- No 1000mL at 999 Univ ers ringers IV - 02-14 mL/hr, ity of infusion 12:30: 13:15 1,000 mL, Jose as 1,000 mL 00 :56 Intravenou Medic al s, ONCE, 1 Branch dose, On Fri11/19/22 at 0630, Routine NaCl 0.9% 2022- No 1000mL at 999 Uni vers (NS) IV 11-19 02-14 mL/hr, ity of infusion 08:00: 08:59 Intravenou [place] 1,000 mL 00 :00 s, ONCE, 1 Medic al dose, On Branch 11/19/22 at 0200, Routine losartan-hy 2022-0 Yes 1{tbl} Take 1 Un angel drochloroth 2-14 tablet by ity of iazide 05:30: mouth [place] 100-25 mg 01 daily. Medical per tablet Branch gabapentin 3-0 Yes 600mg Take 600 Un angel ER 600 mg 2-14 mg by ity of tablet, 05:30: mouth 2 [place] extended (two) Medical release 24 times Branch hr daily. celecoxib 2023-0 Yes 200mg Take 200 Uni vers (CELEBREX) 2-14 mg by ity of 100 mg 05:30: mouth 2 [place] capsule (two) Medical times Branch daily with meals. metoprolol 3-0 Yes 50mg Take 50 mg U nivers succinate 2-14 by mouth ity of XL 50 mg 24 05:30: daily. [place] hr tablet Medical Branch Omeprazole 2022-0 Yes 20mg Take 20 mg U nivers 20 mg 2-14 by mouth ity of tablet 05:30: daily. [address] Branch aspirin 81 2022-0 Yes 81mg Take 81 mg U nivers mg chewable 2-14 by mouth ity of tablet 05:30: daily. [place] [address] Medical Branch diphenhydrA 2022-0 Yes 25mg Take 25 mg Univers MINE 25 mg 2-14 by mouth ity o f capsule 05:30: at [place] [address] bedtime. Medical Sleep Branch losartan-hy 3-0 Yes 1{tbl} Take 1 Un angel drochloroth 2-14 tablet by ity of iazide 05:30: mouth [place] 100-25 mg 01 daily. Medical per tablet Branch gabapentin 3-0 Yes 600mg Take 600 Un angel ER 600 mg 2-14 mg by ity of tablet, 05:30: mouth 2 [place] extended (two) Medical release 24 times Branch hr daily. celecoxib 2023-0 Yes 200mg Take 200 Uni vers (CELEBREX) 2-14 mg by ity of 100 mg 05:30: mouth 2 [place] capsule (two) Medical times Branch daily with meals. metoprolol 2023-0 Yes 50mg Take 50 mg U nivers succinate 2-14 by mouth ity of XL 50 mg 24 05:30: daily. [place] hr tablet Medical Branch Omeprazole Yes 20mg Take 20 mg U nivers 20 mg 2-14 by mouth ity of tablet 05:30: daily. [place] [facility] Branch aspirin 81 Yes 81mg Take 81 mg U nivers mg chewable 2-14 by mouth ity of tablet 05:30: daily. [place] [facility] Branch diphenhydrA Yes 25mg Take 25 mg Univers MINE 25 mg 2-14 by mouth ity o f capsule 05:30: at [place] bedtime. Medical Sleep Branch Sliding Yes [facility] Scale 2-13 us, TID ity of Insulin - 18:00: MEALS+HS, [place] as Lispro 00 First dose Medical (HumaLOG) + on [facility] Branch Fsbg 11/18/22 at Testing 1200, Until Discontinu ed, Routine Sliding Yes [facility] ers Scale 2-13 us, TID ity of Insulin - 18:00: MEALS+HS, [place] Lispro 00 First dose Medical (HumaLOG) + on [facility] Branch Fsbg 11/18/22 at Testing 1200, Until Discontinu ed, Routine losartan-hy Yes 1{tbl} Take 1 Un angel drochloroth 2-13 tablet by ity of iazide 15:15: mouth [place] 100-25 mg 33 daily. Medical per tablet Branch gabapentin Yes 600mg Take 600 Un angel ER 600 mg 2-13 mg by ity of tablet, 15:15: mouth 2 [place] extended 33 (two) Medical release 24 times Branch hr daily. celecoxib Yes 200mg Take 200 Uni vers (CELEBREX) 2-13 mg by ity of 100 mg 15:15: mouth 2 [place] capsule 33 (two) Medical times Branch daily with meals. metoprolol Yes 50mg Take 50 mg U nivers succinate 2-13 by mouth ity of XL 50 mg 24 15:15: daily. [place] hr tablet [facility] Branch Omeprazole Yes 20mg Take 20 mg U nivers 20 mg 2-13 by mouth ity of tablet 15:15: daily. [address] Branch aspirin 81 Yes 81mg Take 81 mg U nivers mg chewable 2-13 by mouth ity of tablet 15:15: daily. [place] [address] Medical Branch diphenhydrA Yes 25mg Take 25 mg Univers MINE 25 mg 2-13 by mouth ity o f capsule 15:15: at [place] [address] bedtime. [facility] Sleep Branch pantoprazol Yes 40mg 40 mg, Univ ers e 2-13 Oral, ity of (PROTONIX) 15:00: DAILY, [place] EC tablet 00 First dose Medi rosalind 40 mg on Fri Branch 11/18/22 at 0900, Until Discontinu ed, Routine pantoprazol Yes 40mg 40 mg, Univ ers e 2-13 Oral, ity of (PROTONIX) 15:00: DAILY, [place] EC tablet 00 First dose Medi rosalind 40 mg on Fri Branch 11/18/22 at 0900, Until Discontinu ed, Routine dextrose 2022-0 Yes 250mL 250 mL, IV Un angel 10% (D10W) 2-13 Infusion, ity of bolus 14:45: PRN - SEE [place] infusion 47 INSTRUCTIO Medic al 250 mL NS, Branch Administer over 60 Minutes, Other, If blood glucose is < or = 70 mg/dL and patient is unable to swallow or has mental status changes, Starting on Fri11/18/22 at 0845
If blood glucose is < or = 70 mg/dL and patient is unable to swallow or has mental status changes (Give glucagon order if patient needs fluid restrictio n): IF IV access available: Dextrose 10%. 1. 125 mL (? bag) of D10W IV infusion - equivalent to 12.5 g dextrose 2. Blood glucose - draw blood glucose 15 minutes after D10W Administra tion. 3. If blood glucose is < 80 mg/dL, repeat.
dextrose 2022-0 Yes 250mL 250 mL, IV Un angel 10% (D10W) 2-13 Infusion, ity of bolus 14:45: PRN - SEE [place] infusion 47 INSTRUCTIO Medic al 250 mL NS, Branch Administer over 60 Minutes, Other, If blood glucose is < or = 70 mg/dL and patient is unable to swallow or has mental status changes, Starting on Fri11/18/22 at 0845
If blood glucose is < or = 70 mg/dL and patient is unable to swallow or has mental status changes (Give glucagon order if patient needs fluid restrictio n): IF IV access available: Dextrose 10%. 1. 125 mL (? bag) of D10W IV infusion - equivalent to 12.5 g dextrose 2. Blood glucose - draw blood glucose 15 minutes after D10W Administra tion. 3. If blood glucose is < 80 mg/dL, repeat.
glucagon Yes 1mg 1 mg, Univers (GLUCAGEN 2-13 Intramuscu ity of DIAGNOSTIC 14:45: [place], PRN, [place] KIT) 43 Starting Medical injection 1 on [facility] 11/18/22 at 0845, Until Discontinu ed, FLOWER, Blood Glucose < or = 70 mg/dL and patient is NPO, unable to swallow or has mental changes. glucagon Yes 1mg 1 mg, Univers (GLUCAGEN 2-13 Intramuscu ity of DIAGNOSTIC 14:45: [place], PRN, [place] KIT) 43 Starting Medical injection 1 on [facility] 11/18/22 at 0845, Until Discontinu ed, FLOWER, Blood Glucose < or = 70 mg/dL and patient is NPO, unable to swallow or has mental changes. atorvastati 2022- No 10mg Take 10 mg Univers n 10 mg 11-18 by mouth ity of tablet 14:18: 00:00 at [place] 10 :00 bedtime. [facility] insulin 2022- No 8U inject 8 Unive rs glargine 11-18 Units ity of 100 unit/mL 14:18: 00:00 under the [place] injection 10 :00 skin in [facility] morning. insulin 2022- No 2U inject 2 Unive rs lispro 100 11-18 Units ity of unit/mL pen 14:18: 00:00 under the [place] injector 10 :00 skin in [facility] morning and 2 Units at noon and 2 Units in the evening. inject before meals. atorvastati 2022- No 10mg Take 10 mg Univers n 10 mg 11-18 by mouth ity of tablet 14:18: 00:00 at [place] 10 :00 bedtime. [facility] magnesium 2022-2022- No 2g 2 g, IV Univ ers sulfate in 11-18 Piggyback, it y of water 2 13:30: 15:09 Administer Jose as gram/50 mL 00 :00 over 60 Medica l (4 %) Minutes, Branch infusion 2 ONCE, 1 g dose, On 11/18/22 at 0730, Routine insulin Yes 8U inject 8 Univer s glargine 2-13 Units ity of 100 unit/mL 08:44: under the [place] injection 55 skin in [facility] morning. insulin Yes 2U inject 2 Univer s lispro 100 2-13 Units ity of unit/mL pen 08:44: under the [place] injector 55 skin in [facility] morning and 2 Units at noon and 2 Units in the evening. inject before meals. insulin Yes 8U inject 8 Univer s glargine 2-13 Units ity of 100 unit/mL 08:44: under the [place] injection 55 skin in [facility] morning. insulin Yes 2U inject 2 Univer s lispro 100 2-13 Units ity of unit/mL pen 08:44: under the [place] injector 55 skin in [facility] morning and 2 Units at noon and 2 Units in the evening. inject before meals. psyllium Yes 1{packe 1 Packet, U nivers husk 2-13 t} Oral, BID, ity of (METAMUCIL 02:00: First dose [place] (SUGAR 00 on [facility] FREE)) 3.4 11/17/22 at [facility] gram oral 2000, powder Until packet 1 Discontinu Packet ed, Routine psyllium Yes 1{packe 1 Packet, U nivers husk 2-13 t} Oral, BID, ity of (METAMUCIL 02:00: First dose [place] (SUGAR 00 on [facility] FREE)) 3.4 11/17/22 at [facility] gram oral 2000, powder Until packet 1 Discontinu Packet ed, Routine atorvastati Yes [id number] 40mg Take 1 Univers n 40 mg 2-13 tablet by ity of tablet 00:00: mouth at [place] [address] bedtime. Medical Branch psyllium 2022-0 Yes [id number] 1{packe Take 1 Univers husk 3.4 2-13 t} Packet by [place]y of gram oral 00:00[place] powder 00 the Medical packet morning Branch and 1 Packet in the evening. dapaglifloz 2022-0 Yes [id number] 5mg Take 5 mg Univers in-metformi 2-13 by mouth ity of n 5-500 mg 00:00: daily. [place] [address] Medical Branch insulin 2022-0 Yes [id number] 8U inject 8 Un angel degludec 2-13 Units ity of 100 unit/mL 00:00: [facility] [place] [facility] Branch atorvastati 2022-0 Yes [id number] 40mg Take 1 Univers n 40 mg 2-13 tablet by ity of tablet 00:00: mouth at [place] [address] bedtime. Medical Branch psyllium 2022-0 Yes [id number] 1{packe Take 1 Univers husk 3.4 2-13 t} Packet by [place]y of gram oral 00:00: [place] powder 00 the Medical packet morning Branch and 1 Packet in the evening. dapaglifloz 2022-0 Yes [id number] 5mg Take 5 mg Univers in-metformi 2-13 by mouth ity of n 5-500 mg 00:00: daily. [place] [address] Medical Branch insulin 2022-0 Yes [id number] 8U inject 8 Un angel degludec 2-13 Units ity of 100 unit/mL 00:00: under the [place] (3 mL[facility] daily. Branch atorvastati 2022-0 Yes [id number] 40mg Take 1 Univers n 40 mg 2-13 tablet by ity of tablet 00:00: mouth at [place] [address] bedtime. Medical Branch psyllium 2022-0 Yes [id number] 1{packe Take 1 Univers husk 3.4 2-13 t} Packet by ity of gram oral 00:00: [place] powder 00 the Medical packet morning Branch and 1 Packet in the evening. dapaglifloz 2022-0 Yes [id number] 5mg Take 5 mg Univers in-metformi 2-13 by mouth ity of n 5-500 mg 00:00: daily. [place] [address] Medical Branch insulin 0 Yes [id number] 8U inject 8 Un angel degludec 2-13 Units ity of 100 unit/mL 00:00: under the [place] (3 mL) In 00 skin Medical daily. Branch atorvastati 0 Yes [id number] 40mg Take 1 Univers n 40 mg 2-13 tablet by ity of tablet 00:00: mouth at [place] [address] bedtime. Medical Branch psyllium Yes [id number] 1{packe Take 1 Univers husk 3.4 2-13 t} Packet by ity of gram oral 00:00: [place] powder 00 the Medical packet morning Branch and 1 Packet in the evening. dapaglifloz 0 Yes [id number] 5mg Take 5 mg Univers in-metformi 2-13 by mouth ity of n 5-500 mg 00:00: daily. [place] [address] Medical Branch insulin 2022-0 Yes [id number] 8U inject 8 Un angel degludec 2-13 Units ity of 100 unit/mL 00:00: under the [place] (3 mL[facility] daily. Branch atorvastati 0 Yes [id number] 40mg Take 1 Univers n 40 mg 2-13 tablet by ity of tablet 00:00: mouth at [place] [address] bedtime. Medical Branch psyllium 2022-0 Yes [id number] 1{packe Take 1 Univers husk 3.4 2-13 t} Packet by ity of gram oral 00:00: [place] powder 00 the Medical packet morning Branch and 1 Packet in the evening. dapaglifloz 2022-0 Yes [id number] 5mg Take 5 mg Univers in-metformi 2-13 by mouth ity of n 5-500 mg 00:00: daily. [place] [address] Medical Branch insulin 0 Yes [id number] 8U inject 8 Un angel degludec 2-13 Units ity of 100 unit/mL 00:00: under the [place] (3 mL) [facility] daily. Branch atorvastati 0 Yes [id number] 40mg Take 1 Univers n 40 mg 2-13 tablet by ity of tablet 00:00: mouth at [place] [address] bedtime. Medical Branch psyllium 2022-0 Yes [id number] 1{packe Take 1 Univers husk 3.4 2-13 t} Packet by ity of gram oral 00:00: [place] powder 00 the Medical packet morning Branch and 1 Packet in the evening. dapaglifloz 2022-0 Yes [id number] 5mg Take 5 mg Univers in-metformi 2-13 by mouth ity of n 5-500 mg 00:00: daily. [facility] 00 Medical Branch insulin 2022-0 Yes [id number] 8U inject 8 Un angel degludec 2-13 Units ity of 100 unit/mL 00:00: under the [place] (3 mL) [facility] daily. Branch acetaminoph 2022-0 Yes 650mg 650 mg, Un angel en 2-12 Oral, ity of (TYLENOL) 22:37: Q6HPRN, [place] tablet 650 02 Starting Medic al mg on [facility] 11/17/22 at 1637, Until Discontinu ed, Routine, Pain (scale 1-3) acetaminoph 2022-0 Yes 650mg 650 mg, Un angel en 2-12 Oral, ity of (TYLENOL) 22:37: Q6HPRN, [place] tablet 650 02 Starting Medic al mg on [facility] 11/17/22 at 1637, Until Discontinu ed, Routine, Pain (scale 1-3) lactated 2022-0 Yes 1000mL at 75 Univer s ringers IV 2-12 mL/hr, ity of infusion 19:30: 1,000 [place], [place] 1,000 mL 00 IV Medical Infusion, Branch CONTINUOUS , Starting on [place] 11/17/22 at 1330, Until Discontinu ed, Routine, PACU lactated 3-0 Yes 1000mL at 75 Univer s ringers IV 2-12 mL/hr, ity of infusion 19:30: 1,000 mL, [place] 1,000 mL 00 IV Medical Infusion, Branch CONTINUOUS , Starting on [place] 11/17/22 at 1330, Until Discontinu ed, Routine, PACU vitamin 2022-0 Yes 1000ug 1,000 mcg, Un angel B-12 2-12 Oral, ity of (CYANOCOBAL 15:00: DAILY, [place] ZHANG) 00 First dose Medical tablet on [facility] 1,000 mcg 11/17/22 at 0900, Until Discontinu ed vitamin 2022-0 Yes 1000ug 1,000 mcg, Un angel B-12 2-12 Oral, ity of (CYANOCOBAL 15:00: DAILY, [place] ZHANG) 00 First dose Medical tablet on Sun Branch 1,000 mcg 11/17/22 at 0900, Until Discontinu ed atorvastati 2022-0 Yes 10mg 10 mg, Univ ers n (LIPITOR) 2-12 Oral, QHS, it y of tablet 10 03:00: First dose [place] mg 00 on [facility] 11/16/22 at Branch 2100, Until Discontinu ed, Routine atorvastati 0 Yes 10mg 10 mg, Univ ers n (LIPITOR) 2-12 Oral, QHS, it y of tablet 10 03:00: First dose [place] mg 00 on [facility] 11/16/22 at Branch 2100, Until Discontinu ed, Routine lactated 2022-0 202- No 1000mL at 100 [facility] ers ringers IV 11-17 02-12 mL/hr, ity of infusion 02:30: 22:21 1,000 mL, [place] 1,000 mL 00 :23 IV Medical Infusion, Branch CONTINUOUS , Starting on [facility] 11/16/22 at 2030, Until [place] 11/17/22 at 1621, Routine peg-electro 2022-0 Yes 4000mL 4,000 mL, Univers lyte soln 2-12 Oral, PRN ity o f (GOLYTELY) 00:22: - SEE [place] [id number] INSTRUCTIO In dical .74 -5.86 NS, Branch gram Starting solution on Sat 4,000 mL 11/16/22 at 1822, Until Discontinu ed, Routine, Bowel Prep, colonoscop y ondansetron 2022-0 Yes 4mg 4 mg, Slow Univers (ZOFRAN 2-12 IV Push, ity of (PF)) 00:22: Q6HPRN, [place] injection 4 38 Starting Medi rosalind mg on [facility] Branch 11/16/22 at 1822, Until Discontinu ed, Routine, Nausea and Vomiting (N/V) peg-electro 2023-0 Yes 4000mL 4,000 mL, Univers lyte soln 2-12 Oral, PRN ity o f (GOLYTELY) 00:22: - SEE [place] [id number] INSTRUCTIO In dical .74 -5.86 NS, Branch gram Starting solution on Sat 4,000 mL 11/16/22 at 1822, Until Discontinu ed, Routine, Bowel Prep, colonoscop y ondansetron Yes 4mg 4 mg, Slow Univers (ZOFRAN 212 IV Push, ity of (PF)) 00:22: Q6HPRN, [place] injection 4 38 Starting Medi rosalind mg on Sat Branch 11/16/22 at 1822, Until Discontinu ed, Routine, Nausea and Vomiting (N/V) bisacodyL 2022- No 10mg 10 mg, Unive rs (DULCOLAX) 11-17 Oral, ity of tablet 10 00:22: 02:42 PRE-PROCED [place] mg 38 :00 URE ONCE, Medical 1 dose, Branch Starting on 11/16/22 at 1822, Until Discontinu ed, Routine, Bowel Prep, Colonoscop y bisacodyL 2022- No 10mg 10 mg, Unive rs (DULCOLAX) 11-17 Oral, ity of tablet 10 00:22: 14:58 PRE-PROCED [place] mg 38 :00 URE ONCE, Medical 1 dose, Branch Starting on 11/16/22 at 1822, Until Discontinu ed, Routine, Bowel Prep, Colonoscop y ondansetron 2022- No Slow IV Un angel (ZOFRAN 11-16 Push, ONCE ity o f (PF)) 23:13: 00:03 INTRA [place] injection 00 :58 PROCEDURE, Medi rosalind Starting Branch on 11/16/22 at 1713, Until Discontinu ed, Routine, Intra-op PHENYLephri 2022- No Slow IV Un angel ne 1000 11-16 Push, ONCE ity o f mcg/10 mL 23:13: 00:03 INTRA [place] in 0.9% 00 :58 PROCEDURE, Medica l NaCl Starting Branch syringe on 11/16/22 at 1713, Until Discontinu ed, Routine, Intra-op calcium 2022- No Intravenou Uni vers chloride 11-16 s, ONCE ity of 100 mg/mL 23:07: 00:03 INTRA [place] (10%) 00 :58 PROCEDURE, Medical syringe Starting Branch on 11/16/22 at 1707, Until Discontinu ed, Routine, Intra-op FENTanyl PF 2022- No Slow IV Un angel (SUBLIMAZE 11-16 Push, ONCE it y of (PF)) 22:23: 00:03 INTRA [place] injection 00 :58 PROCEDURE, Medi rosalind Starting Branch on 11/16/22 at 1623, Until Discontinu ed, Routine, Intra-op iopamidol 2022- No [id number] 100mL 100 mL, Univers (ISOVUE 11-16 Intravenou ity o f 300-100 mL) 22:21: 23:20 s, TITRATE [place] injection 00 :00 - FOR Medical 100 mL PROCEDURE Branch USE, 1 dose, Starting on 11/16/22 at 1621, Until 11/16/22 at 1720, Routine, Surgery/Pr ocedure lidocaine 2022- No Infiltrati U nivers 1% 11-16 on, ONCE ity of (XYLOCAINE) 22:16: 00:03 INTRA [place] 100 mg/10 00 :58 PROCEDURE, Medi rosalind mL (1 %) Starting Branch injection on 11/16/22 at 1616, Until Discontinu ed, Routine, Intra-op midazolam 2022- No IV Push, Uni vers (VERSED) 11-16 ONCE INTRA ity of injection 22:06: 00:03 PROCEDURE, [place] 00 :58 Starting Medical on Sat Branch 11/16/22 at 1606, Until Discontinu ed, Routine, Intra-op lactated 2022- No IV Univers ringers IV 11-16 Infusion, ity of infusion 22:03: 00:03 CONTINUOUS [place] 00 :58 PRN, Medical Starting Branch on 11/16/22 at 1603, Until Discontinu ed, Routine, Intra-op pantoprazol 2022- No 40mg 40 mg, Uni vers e 11-16 Slow IV ity of (PROTONIX) 21:45: 13:08 Push, [place] injection 00 :19 Q24H, Medical 40 mg First dose Branch on 11/16/22 at 1545, Until Discontinu ed iopamidol 0 2022- No [id number] 90mL 90 mL, U nivers (ISOVUE 11-16 Intravenou ity o f 370-500 mL) 20:10: 20:10 s, ONCE, 1 [place] injection 00 :00 dose, On Medica l 90 mL Sat Branch 11/16/22 at 1430, Routine diphenhydrA 0 Yes 25mg Take 25 mg Univers MINE 25 mg 2-11 by mouth ity o f capsule 13:18: at [place] [address] bedtime. Medical Sleep Branch losartan-hy Yes 1{tbl} Take 1 Un angel drochloroth 2-11 tablet by ity of iazide 13:18: mouth [place] 100-25 mg 36 daily. Medical per tablet Branch gabapentin 0 Yes 600mg Take 600 Un angel ER 600 mg 2-11 mg by ity of tablet, 13:18: mouth 2 [place] extended 36 (two) Medical release 24 times Branch hr daily. celecoxib 0 Yes 200mg Take 200 Uni vers (CELEBREX) 2-11 mg by ity of 100 mg 13:18: mouth 2 [place] capsule 36 (two) Medical times Branch daily with meals. atorvastati Yes 10mg Take 10 mg Univers n 10 mg 2-11 by mouth ity of tablet 13:18: at [place] [address] bedtime. Medical Branch metoprolol 0 Yes 50mg Take 50 mg U nivers succinate 2-11 by mouth ity of XL 50 mg 24 13:18: daily. [place] hr tablet 36 Medical Branch Omeprazole 2022-0 Yes 20mg Take 20 mg U nivers 20 mg 2-11 by mouth ity of tablet 13:18: daily. [place] [address] Medical Branch aspirin 81 2022-0 Yes 81mg Take 81 mg U nivers mg chewable 2-11 by mouth ity of tablet 13:18: daily. [place] [address] Medical Branch diphenhydrA 2022-0 Yes 25mg Take 25 mg Univers MINE 25 mg 2-11 by mouth ity o f capsule 13:18: at [place] [address] bedtime. Medical Sleep Branch losartan-hy 2022-0 Yes 1{tbl} Take 1 Un angel drochloroth 2-11 tablet by ity of iazide 13:18: mouth [place] 100-25 mg 36 daily. Medical per tablet Branch gabapentin 2022-0 Yes 600mg Take 600 Un angel ER 600 mg 2-11 mg by ity of tablet, 13:18: mouth 2 [place] extended 36 (two) Medical release 24 times Branch hr daily. celecoxib 2022-0 Yes 200mg Take 200 Uni vers (CELEBREX) 2-11 mg by ity of 100 mg 13:18: mouth 2 [place] capsule 36 (two) Medical times Branch daily with meals. atorvastati 2022-0 Yes 10mg Take 10 mg Univers n 10 mg 2-11 by mouth ity of tablet 13:18: at [place] [address] bedtime. Medical Branch metoprolol 2022-0 Yes 50mg Take 50 mg U nivers succinate 2-11 by mouth ity of XL 50 mg 24 13:18: daily. [place] hr tablet Medical Branch Omeprazole 2022-0 Yes 20mg Take 20 mg U nivers 20 mg 2-11 by mouth ity of tablet 13:18: daily. [place] [address] Medical Branch aspirin 81 2022-0 Yes 81mg Take 81 mg U nivers mg chewable 2-11 by mouth ity of tablet 13:18: daily. [place] [address] Medical Branch diphenhydrA 2022-0 Yes 25mg Take 25 mg Univers MINE 25 mg 2-11 by mouth ity o f capsule 13:18: at [place] [address] bedtime. Medical Sleep Branch losartan-hy 2022-0 Yes 1{tbl} Take 1 Un angel drochloroth 2-11 tablet by ity of iazide 13:18: mouth [place] 100-25 mg 36 daily. Medical per tablet Branch gabapentin 2022-0 Yes 600mg Take 600 Un angel ER 600 mg 2-11 mg by ity of tablet, 13:18: mouth 2 [place] extended 36 (two) Medical release 24 times Branch hr daily. celecoxib 2022-0 Yes 200mg Take 200 Uni vers (CELEBREX) 2-11 mg by ity of 100 mg 13:18: mouth 2 [place] capsule 36 (two) Medical times Branch daily with meals. atorvastati 2022-0 Yes 10mg Take 10 mg Univers n 10 mg 2-11 by mouth ity of tablet 13:18: at [place] [address] bedtime. Medical Branch metoprolol 0 Yes 50mg Take 50 mg U nivers succinate 2-11 by mouth ity of XL 50 mg 24 13:18: daily. [facility] s hr [place] [address] Medical Branch Omeprazole 2022-0 Yes 20mg Take 20 mg U nivers 20 mg 2-11 by mouth ity of tablet 13:18: daily. [place] [address] Medical Branch aspirin 81 2022-0 Yes 81mg Take 81 mg U nivers mg chewable 2-11 by mouth ity of tablet 13:18: daily. [place] [address] Medical Branch cyanocobala 0 Yes [id number] 1000ug Take 1,000 Univers min, 3-12 82230 mcg by ity of vitamin 00:00: mouth [place] B-12, 1,000 00 daily. Medica l mcg Cap Branch cyanocobala 0 Yes [id number] 1000ug Take 1,000 Univers min, 3-12 71443 mcg by ity of vitamin 00:00: mouth [place] B-12, 1,000 00 daily. Medica l mcg Cap Branch cyanocobala Yes [id number] 1000ug Take 1,000 Univers min, 3-12 32901 mcg by ity of vitamin 00:00: mouth [place] B-12, 1,000 00 daily. Medica l mcg Cap Branch cyanocobala Yes [id number] 1000ug Take 1,000 Univers min, 3-12 28860 mcg by ity of vitamin 00:00: mouth [place] B-12, 1,000 00 daily. Medica l mcg Cap Branch cyanocobala Yes [id number] 1000ug Take 1,000 Univers min, 3-12 51845 mcg by ity of vitamin 00:00: mouth [place] B-12, 1,000 00 daily. Medica l mcg Cap Branch cyanocobala 0 Yes [id number] 1000ug Take 1,000 Univers min, 3-12 81136 mcg by ity of vitamin 00:00: mouth [place] B-12, 1,000 00 daily. Medica l mcg Cap Branch cyanocobala 0 Yes [id number] 1000ug Take 1,000 Univers min, 3-12 36893 mcg by ity of vitamin 00:00: mouth [place] B-12, 1,000 00 daily. Medica l mcg Cap Branch cyanocobala Yes [id number] 1000ug Take 1,000 Univers min, 3- 33695 mcg by ity of vitamin 00:00: mouth [place] B-12, 1,000 00 daily. Medica l mcg Cap Branch cyanocobala Yes [id number] 1000ug Take 1,000 Univers min, 3- 51748 mcg by ity of vitamin 00:00: mouth [place] B-12, 1,000 00 daily. Medica l mcg Cap Branch cyanocobala Yes [id number] 1000ug Take 1,000 Univers min, 3- 72674 mcg by ity of vitamin 00:00: mouth [place] B-12, 1,000 00 daily. Medica l mcg Cap Branch losartan-hy Yes 1{tbl} QD Take 1 Me [...] 47 daily. l 100-25 mg per tablet pantoprazol Yes 40mg QD Take [address] [facility] 7-03 by mouth [facility] (PROTONIX) 15:30: daily. Medic al 40 MG 56 Center tablet triamterene Yes 1{capsu QD Take [address] -hydrochlor 7- le} capsule by Janiya akins othiazide 15:30: mouth Medical (DYAZIDE) 56 every Center 37.5-25 mg morning. per capsule ferrous Yes 324mg Take 324 [facility] gluconate 7-03 mg by [facility] (FERGON) 15:30: mouth Medical 324 MG 56 daily with Center tablet breakfast. zolpidem Yes 5mg Take [address] [facility] (AMBIEN CR) 7-03 by mouth [facility] 6.25 MG CR 15:30: every Medica l tablet 56 night as Center needed. Vital Signs Vital Name Observation Time Observation Value Comments Source Systolic blood 2022-11-21 17:51:00 124 mm[Hg] Univer sity of pressure [place] [facility] Diastolic blood 2022-11-21 17:51:00 66 mm[Hg] Unive rsity of [facility] Heart rate 2022-11-21 17:51:00 82 /min Universi ty of [place] [facility] [place] Body temperature 2022-11-21 17:51:00 37.28 Cristina Univ ersity of [facility] Branch Respiratory rate 2022-11-21 17:51:00 18 /min Univ ersity of [facility] Oxygen saturation 2022-11-21 17:51:00 98 /min Uni versity of in Arterial blood [place] Medi rosalind by Pulse oximetry Branch Body height 2022-11-19 11:45:00 167.6 cm Universi ty of [place] [facility] Body weight 2022-11-19 11:45:00 114 kg Universi ty of [place] [facility] BMI 2022-11-19 11:45:00 40.56 kg/m2 Universi ty [facility] Medical Branch Systolic blood 2022-11-19 19:25:00 111 mm[Hg] Univer sity of [facility] Diastolic blood 2022-11-19 19:25:00 61 mm[Hg] Unive rsity of [facility] [place] Heart rate 2022-11-19 19:25:00 72 /min Universi ty of [place] [facility] Body temperature 2022-11-19 19:25:00 36.89 Cristina Univ ersity of [place] [facility] Respiratory rate 2022-11-19 19:25:00 16 /min Univ ersity of [place] [facility] Oxygen saturation 2022-11-19 19:25:00 100 /min 2 lit by [place] Uni versity of in Arterial blood [place] Medi rosalind by Pulse oximetry Branch Body height 2022-11-19 11:45:00 167.6 cm Universi ty of [place] [facility] Body weight 2022-11-19 11:45:00 114 kg Universi ty of [place] [facility] [place] BMI 2022-11-19 11:45:00 40.56 kg/m2 Universi ty of [place] [facility] Systolic blood 2022-11-18 17:11:00 128 mm[Hg] Univer sity of pressure [place] [facility] Diastolic blood 2022-11-18 17:11:00 61 mm[Hg] Unive rsity of pressure [place] [facility] Heart rate 2022-11-18 17:11:00 74 /min Universi ty of [place] [facility] Body temperature 2022-11-18 17:11:00 36.22 Cristina Univ ersity of [place] [facility] Respiratory rate 2022-11-18 17:11:00 18 /min Univ ersity of [place] [facility] Oxygen saturation 2022-11-18 17:11:00 98 /min Uni versity of in Arterial blood [place] Medi rosalind by Pulse oximetry Branch Body height 2022-11-17 01:14:00 167.6 cm Universi ty of [place] [facility] Body weight 2022-11-16 18:00:00 113.399 kg Universi ty of [place] [facility] BMI 2022-11-16 18:00:00 40.35 kg/m2 Universi ty of [place] [facility] Systolic blood 2022-11-17 21:00:00 118 mm[Hg] Univer sity of pressure [place] [facility] Diastolic blood 2022-11-17 21:00:00 60 mm[Hg] Unive rsity of pressure [place] [facility] Respiratory rate 2022-11-17 21:00:00 11 /min Univ ersity of [place] [facility] Oxygen saturation 2022-11-17 21:00:00 100 /min Uni versity of in Arterial blood [place] Medi rosalind by Pulse oximetry Branch Heart rate 2022-11-17 19:29:00 83 /min Universi ty of [place] [facility] Body temperature 2022-11-17 19:29:00 36.39 Cristina Univ ersity of [place] [facility] Body height 2022-11-17 01:14:00 167.6 cm Universi ty of [place] [facility] Body weight 2022-11-16 18:00:00 113.399 kg Universi ty of [place] [facility] BMI 2022-11-16 18:00:00 40.35 kg/m2 Universi ty of [place] [facility] Respiratory rate 2022-11-16 23:28:00 21 /min Univ ersity of [place] [facility] Systolic blood 2022-11-18 17:11:00 128 mm[Hg] Univer sity of pressure [place] [facility] Diastolic blood 2022-11-18 17:11:00 61 mm[Hg] Unive rsity of [facility] Heart rate 2022-11-18 17:11:00 74 /min [facility] Body temperature 2022-11-18 17:11:00 36.22 Cristina [facility] [place] [facility] Respiratory rate 2022-11-18 17:11:00 18 /min [facility] [place] [facility] Oxygen saturation 2022-11-18 17:11:00 98 /min Uni versity of in Arterial blood [facility] by Pulse oximetry [place] Systolic blood 2022-11-17 07:00:00 103 mm[Hg] Univer sity of [facility] Diastolic blood 2022-11-17 07:00:00 49 mm[Hg] Unive rsity of [facility] Body temperature 2022-11-17 07:00:00 36.61 Cristina [facility] [place] [facility] Respiratory rate 2022-11-17 07:00:00 12 /min [facility] [place] [facility] Oxygen saturation 2022-11-17 07:00:00 97 /min Uni versity of in Arterial blood [facility] by Pulse oximetry Branch Body height 2022-11-17 01:14:00 167.6 cm [facility] Heart rate 2022-11-16 23:53:00 78 /min [facility] Body weight 2022-11-16 18:00:00 113.399 kg [facility] BMI 2022-11-16 18:00:00 40.35 kg/m2 [facility] Procedures Procedure Date / Time Performing Clinician Source Performed BASIC METABOLIC PANEL 2022-11-21 12:19:00 Vaishnavi De La Fuente [facility] (NA, K, CL, CO2, Medical Branch GLUCOSE, BUN, CREATININE, CA) CBC WITH DIFF 2022-11-21 12:19:00 Rosario Limon [facility] 2022-11-20 22:44:00 Talha Vila [facility] (AUTOMATED) [facility] Branch POCT GLUCOSE 2022-11-20 18:20:00 Talha Vila [facility] (AUTOMATED) [facility] POCT GLUCOSE 2022-11-20 18:20:00 [place] Vila [facility] (AUTOMATED) [facility] CBC WITH DIFF 2022-11-20 16:43:00 Aden [facility] CBC WITH DIFF 2022-11-20 16:43:00 Aden, [facility] CBC WITH DIFF 2022-11-20 10:15:00 Aden, [facility] CBC WITH DIFF 2022-11-20 10:15:00 Aden, [facility] CBC WITH DIFF 2022-11-20 03:56:00 Aden, [facility] CBC WITH DIFF 2022-11-20 03:56:00 Aden, [facility] CBC WITH DIFF 2022-11-19 22:14:00 Aden, [facility] CBC WITH DIFF 2022-11-19 22:14:00 Aden [facility] TRANSFUSE PACKED RBC 2022-11-19 20:08:00 Kalpana [facility] TRANSFUSE PACKED RBC 2022-11-19 20:08:00 Kalpana Rivers [facility] PREPARE PACKED RBC 2022-11-19 19:55:[address] [facility] PREPARE PACKED RBC 2022-11-19 19:55:[facility] 19:46:00 Yordy Connolly [facility] COLONOSCOPY 2022-11-19 19:46:00 Yordy Connolly [facility] COLONOSCOPY (ENDO) 2022-11-19 19:37:02 [facility] (ENDO[facility] 2022-11-19 19:37:02 [facility] POCT GLUCOSE 2022-11-19 18:02:00 Kalpana Rivers [facility] (AUTOMATED) [facility] POCT GLUCOSE 2022-11-19 18:02:00 Kalpana Rivers [facility] (AUTOMATED) [facility] TRANSFUSE PACKED RBC 2022-11-19 17:08:00 [place] [facility] TRANSFUSE PACKED RBC 2022-11-19 17:08:00 [place] [facility] PREPARE PACKED RBC 2022-11-19 16:51:29 [facility] 2022-11-19 16:51:29 [place] [facility] POCT GLUCOSE 2022-11-19 15:32:00 Kalpana Rivers [facility] (AUTOMATED) [facility] POCT GLUCOSE 2022-11-19 15:32:00 Kalpana Rivers [facility] (AUTOMATED) [facility] HB ABO GROUPING 2022-11-19 14:10:00 Vivian [facility] HB ABO GROUPING 2022-11-19 14:10:00 Vivian [facility] PREPARE PACKED RBC 2022-11-19 13:57:17 Kalpana Rivers [facility] PREPARE PACKED RBC 2022-11-19 13:57:17 [place] Rivers [facility] [facility] DIFF 2022-11-19 12:03:00 Pinky Samaniego [facility] CBC WITH DIFF 2022-11-19 12:03:00 Pinky Samaniego [facility] MRSA / MSSA SCREEN BY 2022-11-19 11:39:00 Adrien Paniagua [facility] MRSA / MSSA SCREEN BY 2022-11-19 11:39:00 Adrien Paniagua [facility] TRANSFUSE PACKED RBC 2022-11-19 09:28:00 [facility]ana [facility] TRANSFUSE PACKED RBC 2022-11-19 09:28:00 [facility]pana [facility] LACTIC ACID WHOLE BLOOD 2022-11-19 08:58:00 [facility] LACTIC ACID WHOLE BLOOD 2022-11-19 08:58:00 [facility]ana [facility] HB ABO GROUPING 2022-11-19 07:44:00 Kalpana Rivers [facility] HB ABO GROUPING 2022-11-19 07:44:00 Kalpana Rivers [facility] COMP. METABOLIC PANEL 2022-11-19 07:42:00 Kalpana Rivers [facility] ([id number]) [facility] CBC WITH DIFF 2022-11-19 07:42:00 Kalpana Rivers [facility] PROTHROMBIN TIME / INR 2022-11-19 07:42:00 Kalpana Rivers [facility] COMP. METABOLIC PANEL 2022-11-19 07:42:00 Kalpana Rivers [facility] ([id number]) [facility] CBC WITH DIFF 2022-11-19 07:42:00 Kalpana Rivers [facility] PROTHROMBIN TIME / INR 2022-11-19 07:42:00 Kalpana Rivers [facility] CONSENT/REFUSAL FOR 2022-11-19 07:16:30 Doctor Unassigned, No [facility] [place] [facility] CONSENT/REFUSAL FOR 2022-11-19 07:16:30 Doctor Unassigned, No [facility] [place] [facility] EKG-12 LEAD 2022-11-19 07:05:[address] [facility] 2022-11-19 06:01:00 Doctor Unassigned, No [facility] [place] DOCUMENTS [facility] HOSPITAL ADMISSION 2022-11-19 06:01:00 Doctor Unassigned, No Uni versity of [facility] POCT GLUCOSE 2022-11-18 18:08:00 [facility] (AUTOMATED) Medical Branch POCT GLUCOSE 2022-11-18 18:08:00 [facility] (AUTOMATED) Medical Branch BASIC METABOLIC PANEL 2022-11-18 11:28:00 ObRosario khan [facility] [place] (NA, K, CL, CO2, Amjad S. Medical Branch GLUCOSE, BUN, CREATININE, CA) MAGNESIUM 2022-11-18 11:28:00 ObRosario khan [facility] Amjad S. Medical Branch CBC WITH DIFF 2022-11-18 11:28:00 ObRosario khan [facility] Amjad S. Medical Branch GLYCOSYLATED HEMOGLOBIN 2022-11-18 11:28:00 Baldev Leong [facility] (A1C) Medical Branch MAGNESIUM 2022-11-18 11:28:00 ObopaldaRosario valdes [facility] Amjad S. Medical Branch BASIC METABOLIC PANEL 2022-11-18 11:28:00 Rosario Limon [facility] [place] (NA, K, CL, CO2, Amjad S. [facility] GLUCOSE, BUN, CREATININE, CA) CBC WITH DIFF 2022-11-18 11:28:00 ObRosario khan [facility] Amjad S. Medical Branch GLYCOSYLATED HEMOGLOBIN 2022-11-18 11:28:00 Baldev Leong [facility] (A1C) Medical Branch MAGNESIUM 2022-11-18 11:28:00 ObeidaRosario valdes [facility] Amjad S. Medical Branch BASIC METABOLIC PANEL 2022-11-18 11:28:00 Rosario Limon [facility] [place] (NA, K, CL, CO2, Amjad S. Medical Branch GLUCOSE, BUN, CREATININE, CA) CBC WITH DIFF 2022-11-18 11:28:00 ObopaldaRosario valdes [facility] Amjad S. Medical Branch GLYCOSYLATED HEMOGLOBIN 2022-11-18 11:28:00 Baldev Leong [facility] (A1C) Medical Branch COLONOSCOPY 2022-11-17 18:17:00 Chelle [facility] COLONOSCOPY 2022-11-17 18:17:00 Chelle [facility] COLONOSCOPY 2022-11-17 18:17:00 Chelle [facility] COLONOSCOPY (ENDO) 2022-11-17 17:30:08 Tiffanie [facility] COLONOSCOPY (ENDO) 2022-11-17 17:30:08 Tiffanie [facility] COLONOSCOPY (ENDO) 2022-11-17 17:30:08 Tiffanie [facility] CBC WITH DIFF 2022-11-17 17:24:00 Vivian [facility] CBC WITH DIFF 2022-11-17 17:24:00 Vivian [facility] CBC WITH DIFF 2022-11-17 17:24:00 Vivian [facility] TRANSFUSE PACKED RBC 2022-11-17 14:40:00 Amador Park [facility] TRANSFUSE PACKED RBC 2022-11-17 14:40:00 [place] [facility] TRANSFUSE PACKED RBC 2022-11-17 14:40:00 [place] [facility] PREPARE PACKED RBC 2022-11-17 14:31:46 [place] Park [facility] PREPARE PACKED RBC 2022-11-17 14:31:[address] [facility] PREPARE PACKED RBC 2022-11-17 14:31:[address] [facility] PREPARE PACKED RBC 2022-11-17 13:49:49 Gorge Judson [facility] PREPARE PACKED RBC 2022-11-17 13:49:49 Gorge Judson [facility] PREPARE PACKED RBC 2022-11-17 13:49:49 Gorge Judson [facility] CBC WITH DIFF 2022-11-17 13:06:00 Amdaor Park [facility] CBC WITH DIFF 2022-11-17 13:06:00 Vivian Amador [facility] CBC WITH DIFF 2022-11-17 13:06:00 Vivian Amador [facility] TRANSFUSE PACKED RBC 2022-11-17 07:38:00 Pinky Samaniego [facility] TRANSFUSE PACKED RBC 2022-11-17 07:38:00 Pinky Samaniego [facility] TRANSFUSE PACKED RBC 2022-11-17 07:38:00 Pinky Samaniego [facility] PREPARE PACKED RBC 2022-11-17 07:30:09 Pinky Samaniego [facility] PREPARE PACKED RBC 2022-11-17 07:30:09 Pinky Samaniego [facility] PREPARE PACKED RBC 2022-11-17 07:30:09 Pinky Samaniego [facility] PREPARE PACKED RBC 2022-11-17 07:30:09 Pinky Samaniego [facility] CBC WITH DIFF 2022-11-17 06:40:00 Vivian [facility] CBC WITH DIFF 2022-11-17 06:40:00 Vivian [facility] CBC WITH DIFF 2022-11-17 06:40:00 Vivian [facility] CBC WITH DIFF 2022-11-17 00:29:00 Rula [facility] CBC WITH DIFF 2022-11-17 00:29:00 Abrickie-Jose L [facility] CBC WITH DIFF 2022-11-17 00:29:00 Rula [facility] ARTERIAL LINE 2022-11-16 23:02:00 Unruly Brown [facility] ARTERIAL LINE 2022-11-16 23:02:00 Unruly Brown [facility] PREPARE PACKED RBC 2022-11-16 21:43:50 Norman [facility] CBC WITH DIFF 2022-11-16 20:55:00 Rula [facility] CBC WITH DIFF 2022-11-16 20:55:00 Rula [facility] CBC WITH DIFF 2022-11-16 20:55:00 Rula [facility] CT ANGIOGRAM 2022-11-16 20:10:00 Gorge [facility] ABDOMEN/PELVIS Medical Branch CT ANGIOGRAM 2022-11-16 20:10:00 Gorge [facility] ABDOMEN/PELVIS [facility] CT ANGIOGRAM 2022-11-16 20:10:00 Gorge [facility] 2022-11-16 19:37:00 Melissa Smith [facility] EXTRA TUBE LT. BLUE 2022-11-16 19:37:00 Melissa Smith [facility] EXTRA TUBE DK. GREEN 2022-11-16 19:37:00 Melissa Smith [facility] EXTRA TUBE LT. BLUE 2022-11-16 19:37:00 Melissa Smith [facility] EXTRA TUBE LT. GREEN 2022-11-16 19:37:00 Melissa Smith [facility] EXTRA TUBE DK. GREEN 2022-11-16 19:37:00 Melissa Smith [facility] EXTRA TUBE LT. BLUE 2022-11-16 19:37:00 Melissa Smith [facility] EXTRA TUBE LT. GREEN 2022-11-16 19:37:00 Melissa Smith [facility] EXTRA TUBE DK. GREEN 2022-11-16 19:37:00 Melissa Smith [facility] TRANSFUSE PACKED RBC 2022-11-16 19:34:00 Judson Pennington [facility] TRANSFUSE PACKED RBC 2022-11-16 19:34:00 Judson Pennington [facility] TRANSFUSE PACKED RBC 2022-11-16 19:34:00 [facility] 2022-11-16 19:25:24 Gorge [facility] HB ECG ROUTINE & RHYTHM 2022-11-16 19:04:[address] [facility] HB ECG ROUTINE & RHYTHM 2022-11-16 19:04:[address] [facility] HB ECG ROUTINE & RHYTHM 2022-11-16 19:04:[address] [facility] CBC WITH DIFF 2022-11-16 18:45:00 [facility] BASIC METABOLIC PANEL 2022-11-16 18:45:00 Gorge Judson [facility] (NA, K, CL, CO2, Medical Branch GLUCOSE, BUN, CREATININE, CA) EXTRA TUBE LT. BLUE 2022-11-16 18:45:00 Yue [facility] EXTRA TUBE DK. GREEN 2022-11-16 18:45:00 Yue [facility] EXTRA TUBE LT. GREEN 2022-11-16 18:45:00 CraNadira tavarez [facility] BASIC METABOLIC PANEL 2022-11-16 18:45:00 Judson Pennington [facility] (NA, K, CL, CO2, Medical Branch GLUCOSE, BUN, CREATININE, CA) CBC WITH DIFF 2022-11-16 18:45:00 Gorge Judson [facility] EXTRA TUBE LT. BLUE 2022-11-16 18:45:00 CraNadira tavarez [facility] EXTRA TUBE LT. GREEN 2022-11-16 18:45:00 CraNadira tavarez [facility] EXTRA TUBE DK. GREEN 2022-11-16 18:45:00 CraNadira tavarez [facility] BASIC METABOLIC PANEL 2022-11-16 18:45:00 Judson Pennington [facility] (NA, K, CL, CO2, [facility] GLUCOSE, BUN, CREATININE, CA) CBC WITH DIFF 2022-11-16 18:45:00 Gorge Judson [facility] EXTRA TUBE LT. BLUE 2022-11-16 18:45:00 Cracorby [facility] EXTRA TUBE LT. GREEN 2022-11-16 18:45:00 Cram, Nadira [facility] EXTRA TUBE DK. GREEN 2022-11-16 18:45:00 Cram, Nadira [facility] ABG+COOX+NA+K+GLU+CA2+ 2022-11-16 18:30:00 Cram, Nadira [facility] ABG+COOX+NA+K+GLU+CA2+ 2022-11-16 18:30:00 Cram, Nadira [facility] ABG+COOX+NA+K+GLU+CA2+ 2022-11-16 18:30:00 Cracorby, Nadira [facility] HB ABO GROUPING 2022-11-16 18:27:[facility] 2022-11-16 18:27[facility] 2022-11-16 18:27:00 [facility] AD[facility]ION 2022-11-16 06:01:00 Doctor Unassigned, No Uni versity of [facility] HOSPITAL ADMISSION 2022-11-16 06:01:00 Doctor Unassigned, No Uni versity of [facility] Plan of Care Planned Activity Planned Date Details Comments Source Future Scheduled 2023-07-31 Screening for [facility] Test 06:49:58 malignant neoplasm of colon (procedure) [code = 988305557] Future Scheduled 2023-07-31 Screening for [facility] Test 06:49:58 malignant neoplasm of colon (procedure) [code = 029318653] Future Scheduled 2023-07-31 COVID-19 [facility] (#[facility] 06:49:58 [code = COVID-19 VACCINE (#1)] Future Scheduled 2023-07-31 BREAST CANCER [facility] Test 06:49:58 SCREENING [code = BREAST CANCER SCREENING] Future Scheduled 2023-07-31 SHINGLES VACCINES (1 Met [facility] Hospital Test 06:49:58 of 2) [code = SHINGLES VACCINES (1 of 2)] Future Scheduled 2023-07-31 65+ PNEUMOCOCCAL [facility] Test 06:49:58 VACCINE (1 - PCV) [code = 65+ PNEUMOCOCCAL VACCINE (1 - PCV)] Future Scheduled 2023-07-31 INFLUENZA VACCINE (#1) M [facility] Hospital Test 06:49:58 [code = INFLUENZA VACCINE (#1)] Future Scheduled 2023-07-31 Screening for [facility] Test 06:49:58 malignant neoplasm of colon (procedure) [code = 927377447] Future Scheduled 2023-07-31 Screening for [facility] Test 06:49:58 malignant neoplasm of colon (procedure) [code = 796512822] Future Scheduled 2023-07-31 Screening for [facility] Test 06:49:58 malignant neoplasm of colon (procedure) [code = 810817680] Future Scheduled 2022-10-31 COVID-19 VACCINE (#1) [facility] Test 10:50:14 [code = COVID-19 VACCINE (#1)] Future Scheduled 2022-10-31 BREAST CANCER [facility] Test 10:50:14 SCREENING [code = BREAST CANCER SCREENING] Future Scheduled 2022-10-31 SHINGLES VACCINES (1 Met [facility] Test 10:50:14 of 2) [code = SHINGLES VACCINES (1 of 2)] Future Scheduled 2022-10-31 65+ [facility]CCAL [facility] Test 10:50:14 VACCINE (1 - PCV) [code = 65+ PNEUMOCOCCAL VACCINE (1 - PCV)] Future Scheduled 2022-10-31 INFLUENZA VACCINE [email or web address] Test 10:50:14 [code = INFLUENZA VACCINE] Future Scheduled 2022-10-31 COLONOSCOPY SCREENING [facility] Test 10:50:14 [code = COLONOSCOPY SCREENING] Future Scheduled 2021-09-26 65+ [facility]OCOCCAL [facility] Test 13:27:16 VACCINE (1 of 1 - PPSV23) [code = 65+ PNEUMOCOCCAL VACCINE (1 of 1 - PPSV23)] Future Scheduled 2021-09-26 INFLUENZA VACCINE [facility] Test 13:27:16 [code = INFLUENZA VACCINE] Future Scheduled 2021-09-26 COLONOSCOPY SCREENING [facility] Test 13:27:16 [code = COLONOSCOPY SCREENING] Future Scheduled 2021-09-26 COVID-19 VACCINE (1) [facility] Test 13:27:16 [code = COVID-19 VACCINE (1)] Future Scheduled 2021-09-26 BREAST CANCER [facility] Test 13:27:16 SCREENING [code = BREAST CANCER SCREENING] Future Scheduled 2021-09-26 SHINGLES VACCINES (#1) M [facility] Test 13:27:16 [code = SHINGLES VACCINES (#1)] Encounters Start End Encounter Admission Attending Care Care Encounter Source Date/Time Date/Time Type Type Clinicians Facility Department ID 2022-11-16 [id number] 08:11:48 [facility] 2022-11-01 Outpatient [facility] ER [id number] [place] 15:36:10 [id number] [facility] 2022-06-03 Outpatient [facility] ER [id number] [place] 14:16:04 [id number] [facility] 2021-08-05 [facility] [id number] Univers 04:04:39 ERIC ribera [facility] 2023-06-11 2023-06-11 [facility] [id number] Univers 00:00:00 00:00:00 Kinjaneth Frazier PRIMARY [id number] ity of Amjad S. CARE 4.2.7.2.686 Jose as PAVILLION [id number] In dical 388 Branch 2022-11-22 2022-11-22 Transition SandhyaPIERRE valdesRufina 1.2.840.114 [id number] Univers 00:00:00 00:00:00 of Care Beka A WOOD 350.1.13.10 [place] [id number] [facility] 403 Branch 2022-11-19 2022-11-21 Inpatient X NADIRA MILLER [facility] [id number] Univers 00:56:00 13:35:00 NADIRA MILLER [facility] 2022-11-19 2022-11-21 Hospital Kalpana Rivers 1.2.840. 114 [id number] Univers 00:56:00 13:35:00 Encounter Talha Vila 350.1.13 .10 ity of Nadira Miller [facility] 4.2.7.2.686 [place] [id number] [facility] rosalind 095 Branch 2022-11-19 2022-11-19 Surgery Cathleen [facility] [id number] Univers 14:00:00 15:12:00 Yordy ICAL 350.1.13.10 it y of [facility] 4.2.7.2.686 Jose as BLDG [id number] [facility] 020 Branch 2022-11-19 2022-11-19 [facility] 1.2.840.114 [id number] Univers 00:00:00 00:00:[address] [facility] 350.1.13.10 i ty [facility] 4.2.7.2.686 [facility] [id number] [facility] PRIMARY & 365 Branch SPECIALTY CARE 2022-11-16 2022-11-18 Inpatient X NADIRA MILLER [facility] [id number] Univers 12:16:00 14:54:00 NADIRA MILLER it y of [facility] 2022-11-16 2022-11-18 Hospital Nadira Miller 1.2.840.114 [id number] Univers 12:16:00 14:54:00 Encounter Melissa Smith 350.1.13.10 ity [facility] 4.2.7.2.686 Jose as [id number] [facility] 095 Branch 2022-11-17 2022-11-17 Surgery ARIAS Corbett [id number] Univers 12:40:00 15:10:00 Mario SMALL 350.1.13.10 it y of [facility] 4.2.7.2.686 Jose as [id number] [facility] 103 Branch 2022-11-17 2022-11-17 Anesthesia Bharat Sauceda 1.2.840.1 [id number] Univers 12:26:00 13:28:00 Event Zoila Pope 18210.1.1 ity of 3.104.2.7 [place] .[id number] Medica l .8 Branch 2022-11-16 2022-11-16 Anesthesia Usama Parada 1.2.840 .114 [id number] Univers 15:48:00 18:03:00 Event [facility] 4.2.7.2.686 Dotty connell [id number] [facility] 803 Branch 2020-12-26 2020-12-29 Inpatient MONICA, [facility] MED [id number] [facility] 21:51:00 17:40:00 MURAD 2020-12-26 2020-12-26 Outpatient ELO, [facility] PRICE [id number] [facility] 08:08:00 23:59:00 CECILE 2020-12-26 2020-12-26 Inpatient Roseann SEAY, [facility] PUL [id number] [facility] 15:07:00 21:00:00 JESSE 2020-12-23 2020-12-23 Outpatient [facility] [id number] Univers 09:35:00 09:35:00 [facility] 2020-12-11 2020-12-11 Outpatient Seble CASPER, [facility] [id number] Univers 12:30:00 12:30:00 ERIC [facility] 2020-12-07 2020-12-07 Outpatient Seble PIÑA, [facility] [id number] Univers 13:00:00 13:00:00 SANTA [facility] 2020-12-02 2020-12-02 Outpatient Seble CUTLER, [facility] [id number] Univers 09:35:00 09:35:00 ANUSHKA [facility] Results Test Description Test Time Test Comments Results Result Comments Source BASIC METABOLIC PANEL (NA, K, CL, CO2, GLUCOSE, BUN, 2022-11 12:54:29 CREATININE, CA) Test Item Value Reference Range Interpretation Comme nts NA (test code = 8405200958) 142 mmol/L 135-145 K (test code = 8333053105) 3.4 mmol/L 3.5-5.0 L CL (test code = 7276399675) 109 mmol/L 98-108 H CO2 TOTAL (test code = 4413933825) 32 mmol/L 23-31 H AGAP (test code = 0391667452) 1 2-16 L BUN (test code = 9474558312) 4 mg/dL 7-23 L GLUCOSE (test code = 5374632701) 108 mg/dL 70-110 CREATININE (test code = 0.57 mg/dL 0.50-1.04 3250261665) CALCIUM (test code = 4356908826) 7.9 mg/dL 8.6-10.6 L eGFR (test code = 3389027917) 105.5 mL/min/1.73m2 BLAINE (test code = BLAINE) Association of Glomerular Filtration Rate (GFR) and Staging of Kidney Disease* + +-------- + ------+| GFR (mL/min/1.73 m2) ?| With Kidney Damage ?| ?Without Kidney Damage+ +-- + +| ?>90 ?| ?Stage one ?| ? Normal ?+ +------- + -------+| ?60-89 ?| ?Stage two ?| ? Decreased GFR ? + +-------- + ------+| ?30-59 ?| ?Stage three ?| ? Stage three ? + +-------- + ------+| ?15-29 ?| ?Stage four ? | ? Stage four ?+ +------- + -------+| ?<15 (or dialysis) ? ?| ?Stage five ? | ? Stage five ?+ +------- + -------+ *Each stage assumes the associated GFR level has been in effect for at least three months. ?Stages 1 to 5, with or without kidney disease, indicate chronic kidney disease. Notes: Determination of stages one and two (with eGFR >59mL/min/1.73 m2) requires estimation of kidney damage for at least three months as defined by structural or functional abnormalities of the kidney, manifested by either:Pathological abnormalities or Markers of kidney damage (including abnormalities in the composition of the blood or urine or abnormalities in imaging tests). Lab Interpretation (test code = Abnormal 11833-7) [facility] WITH [id number] 12:34:31 Test Item Value Reference Range Interpretation Comments WBC (test code = 4.95 See_Comment [Automated 1635-2) message] The sy stem which generated this result transmitted reference range : 4.30 - 11.10 10*3/?L. The reference range was not used to interpret this result as normal/abnormal . RBC (test code = 2.58 See_Comment L [Automated 789-8) message] The sy stem which generated this result transmitted reference range : 3.93 - 5.25 10*6/?L. The reference range was not used to interpret this result as normal/abnormal . HGB (test code = 7.5 g/dL 11.6-15.0 L 718-7) HCT (test code = 23.0 % 35.7-45.2 L 4544-3) MCV (test code = 89.1 fL 80.6-95.5 787-2) MCH (test code = 29.1 pg 25.9-32.8 785-6) MCHC (test code = 32.6 g/dL 31.6-35.1 786-4) RDW-SD (test code = 55.8 fL 39.0-49.9 H 32327-1) RDW-CV (test code = 18.1 % 12.0-15.5 H 788-0) PLT (test code = 135 See_Comment L [Automated 777-3) message] The sy stem which generated this result transmitted reference range : 166 - 358 10*3/ ?L. The reference r yogesh was not used to interpret this result as normal/abnormal . MPV (test code = 10.7 fL 9.5-12.9 54201-2) NRBC/100 WBC (test 0.4 See_Comment [Automat ed code = 7081767385) message] The system which generated this result transmitted reference range : 0.0 - 10.0 /100 WBCs. The refer ence range was not u sed to interpret th is result as normal/abnormal . NRBC x10^3 (test code 0.02 See_Comment [Auto mated = 3196056788) message] The s ystem which generated this result transmitted reference range : 10*3/?L. The reference range was not used to interpret this result as normal/abnormal . GRAN MAT (NEUT) % 53.7 % (test code = 770-8) IMM GRAN % (test code 0.60 % = 1320558191) LYMPH % (test code = 37.2 % 736-9) MONO % (test code = 6.7 % 5905-5) EOS % (test code = 1.6 % 713-8) BASO % (test code = 0.2 % 706-2) GRAN MAT x10^3(ANC) 2.66 10*3/uL 1.88-7.09 (test code = 9787840373) IMM GRAN x10^3 (test 0.03 10*3/uL 0.00-0.06 code = 8380705884) LYMPH x10^3 (test code 1.84 10*3/uL 1.32-3.29 = 731-0) MONO x10^3 (test code 0.33 10*3/uL 0.33-0.92 = 742-7) EOS x10^3 (test code = 0.08 10*3/uL 0.03-0.39 711-2) BASO x10^3 (test code 0.01-0.07 = 704-7) Lab Interpretation Abnormal (test code = 90571-9) [facility] GLUCOSE (AUTOMATED)2022-11-20 22:46:17 Test Item Value Reference Range Interpretation Comments POCT GLU (test code = 118 mg/dL 70-110 H Notifi ed Provider [id number]) Lab Interpretation (test Abnormal code = 92512-8) [facility] GLUCOSE (AUTOMATED)2022-11-20 18:22:46 Test Item Value Reference Range Interpretation Comments POCT GLU (test code = 118 mg/dL 70-110 H Notifi ed Provider [id number]) Lab Interpretation (test Abnormal code = 83505-2) [facility] GLUCOSE (AUTOMATED)2022-11-20 18:22:46 Test Item Value Reference Range Interpretation Comments POCT GLU (test code = 118 mg/dL 70-110 H Notifi ed Provider [id number]) Lab Interpretation (test Abnormal code = 78886-0) [facility] WITH [id number] 11:14:29 Test Item Value Reference Range Interpretation Comments WBC (test code = 5.13 See_Comment [Automated 6690-2) message] The sy stem which generated this result transmitted reference range : 4.30 - 11.10 10*3/?L. The reference range was not used to interpret this result as normal/abnormal . RBC (test code = 2.64 See_Comment L [Automated 789-8) message] The sy stem which generated this result transmitted reference range : 3.93 - 5.25 10*6/?L. The reference range was not used to interpret this result as normal/abnormal . HGB (test code = 7.7 g/dL 11.6-15.0 L 718-7) HCT (test code = 23.5 % 35.7-45.2 L 4544-3) MCV (test code = 89.0 fL 80.6-95.5 787-2) MCH (test code = 29.2 pg 25.9-32.8 785-6) MCHC (test code = 32.8 g/dL 31.6-35.1 786-4) RDW-SD (test code = 57.6 fL 39.0-49.9 H 29085-9) RDW-CV (test code = 18.5 % 12.0-15.5 H 788-0) PLT (test code = 120 See_Comment L [Automated 777-3) message] The sy stem which generated this result transmitted reference range : 166 - 358 10*3/ ?L. The reference r yogesh was not used to interpret this result as normal/abnormal . MPV (test code = 10.8 fL 9.5-12.9 33137-4) IPF % (test code = 4.6 % 1.3-7.7 Platelet count [id number]) measured by fluorescence method. NRBC/100 WBC (test 0.6 See_Comment [Automat ed code = 7023682227) message] The system which generated this result transmitted reference range : 0.0 - 10.0 /100 WBCs. The refer ence range was not u sed to interpret th is result as normal/abnormal . NRBC x10^3 (test code 0.03 See_Comment [Auto mated = 8616174612) message] The s ystem which generated this result transmitted reference range : 10*3/?L. The reference range was not used to interpret this result as normal/abnormal . GRAN MAT (NEUT) % 58.8 % (test code = 770-8) IMM GRAN % (test code 0.60 % = 2222455009) LYMPH % (test code = 31.6 % 736-9) MONO % (test code = 7.0 % 5905-5) EOS % (test code = 1.6 % 713-8) BASO % (test code = 0.4 % 706-2) GRAN MAT x10^3(ANC) 3.02 10*3/uL 1.88-7.09 (test code = 1224731704) IMM GRAN x10^3 (test 0.03 10*3/uL 0.00-0.06 code = 5538977123) LYMPH x10^3 (test code 1.62 10*3/uL 1.32-3.29 = 731-0) MONO x10^3 (test code 0.36 10*3/uL 0.33-0.92 = 742-7) EOS x10^3 (test code = 0.08 10*3/uL 0.03-0.39 711-2) BASO x10^3 (test code 0.01-0.07 = 704-7) Lab Interpretation Abnormal (test code = 06344-2) [facility] WITH [id number] 11:14:29 Test Item Value Reference Range Interpretation Comments WBC (test code = 5.13 See_Comment [Automated 6690-2) message] The sy stem which generated this result transmitted reference range : 4.30 - 11.10 10*3/?L. The reference range was not used to interpret this result as normal/abnormal . RBC (test code = 2.64 See_Comment L [Automated 889-8) message] The sy stem which generated this result transmitted reference range : 3.93 - 5.25 10*6/?L. The reference range was not used to interpret this result as normal/abnormal . HGB (test code = 7.7 g/dL 11.6-15.0 L 718-7) HCT (test code = 23.5 % 35.7-45.2 L 4544-3) MCV (test code = 89.0 fL 80.6-95.5 787-2) MCH (test code = 29.2 pg 25.9-32.8 785-6) MCHC (test code = 32.8 g/dL 31.6-35.1 786-4) RDW-SD (test code = 57.6 fL 39.0-49.9 H 29207-9) RDW-CV (test code = 18.5 % 12.0-15.5 H 788-0) PLT (test code = 120 See_Comment L [Automated 777-3) message] The sy stem which generated this result transmitted reference range : 166 - 358 10*3/ ?L. The reference r yogesh was not used to interpret this result as normal/abnormal . MPV (test code = 10.8 fL 9.5-12.9 20259-1) IPF % (test code = 4.6 % 1.3-7.7 Platelet count [id number]) measured by fluorescence method. NRBC/100 WBC (test 0.6 See_Comment [Automat ed code = 3226607749) message] The system which generated this result transmitted reference range : 0.0 - 10.0 /100 WBCs. The refer ence range was not u sed to interpret th is result as normal/abnormal . NRBC x10^3 (test code 0.03 See_Comment [Auto mated = 4332968344) message] The s ystem which generated this result transmitted reference range : 10*3/?L. The reference range was not used to interpret this result as normal/abnormal . GRAN MAT (NEUT) % 58.8 % (test code = 770-8) IMM GRAN % (test code 0.60 % = 0496608678) LYMPH % (test code = 31.6 % 736-9) MONO % (test code = 7.0 % 5905-5) EOS % (test code = 1.6 % 713-8) BASO % (test code = 0.4 % 706-2) GRAN MAT x10^3(ANC) 3.02 10*3/uL 1.88-7.09 (test code = 8077134356) IMM GRAN x10^3 (test 0.03 10*3/uL 0.00-0.06 code = 1201742202) LYMPH x10^3 (test code 1.62 10*3/uL 1.32-3.29 = 731-0) MONO x10^3 (test code 0.36 10*3/uL 0.33-0.92 = 742-7) EOS x10^3 (test code = 0.08 10*3/uL 0.03-0.39 711-2) BASO x10^3 (test code 0.01-0.07 = 704-7) Lab Interpretation Abnormal (test code = 46840-1) [facility] GLUCOSE (AUTOMATED)2022-11-20 03:40:12 Test Item Value Reference Range Interpretation Comments POCT GLU (test code = 121 mg/dL 70-110 H Notifi ed Provider [id number]) Lab Interpretation (test Abnormal code = 42247-2) [facility] GLUCOSE (AUTOMATED)2022-11-20 03:40:12 Test Item Value Reference Range Interpretation Comments POCT GLU (test code = 121 mg/dL 70-110 H Notifi ed Provider [id number]) Lab Interpretation (test Abnormal code = 79835-2) [facility] GLUCOSE (AUTOMATED)2022-11-20 03:40:07 Test Item Value Reference Range Interpretation Comments POCT GLU (test code = 120 mg/dL 70-110 H Notifi ed Provider [id number]) Lab Interpretation (test Abnormal code = 84127-6) [facility] GLUCOSE (AUTOMATED)2022-11-20 03:40:07 Test Item Value Reference Range Interpretation Comments POCT GLU (test code = 120 mg/dL 70-110 H Notifi ed Provider [id number]) Lab Interpretation (test Abnormal code = 66492-9) [facility] Packed RBC (in units), 1 Units 2022-11-19 19:55:18 Test Item Value Reference Range Interpretation Comments Cross Match Result Compatible (test code = 4409) ISBT Blood Type Code 5100 (test code = 129231) Unit Blood Type (test O Pos code = 4410) Unit Number (test [id number] code = 4411) Blood Expiration Date & Time (test code = 928432) Status Information Issued (test code = 4412) Product Red Blood Cells Identification (test code = 4413) Product Code (test T1181D19 Performed at [facility] code = 4414) Laboratory Services - [facility] Blood [address] [place] [address]Alnh Free: [phone] A No. [id number] [facility] Packed RBC (in units), 1 Units 2022-11-19 19:55:18 Test Item Value Reference Range Interpretation Comments Cross Match Result Compatible (test code = 4409) ISBT Blood Type Code 5100 (test code = 945062) Unit Blood Type (test O Pos code = 4410) Unit Number (test [id number] code = 4411) Blood Expiration Date & Time (test code = 783471) Status Information Issued (test code = 4412) Product Red Blood Cells Identification (test code = 4413) Product Code (test X1852Q83 Performed at [facility] code = 4414) Laboratory Services [facility] Blood [address] [address]Chra Free: [phone] A No. [id number] [facility] Packed RBC (in units), 1 Units 2022-11-19 16:51:29 Test Item Value Reference Range Interpretation Comments Cross Match Result Compatible (test code = 4409) ISBT Blood Type Code 5100 (test code = 136132) Unit Blood Type (test O Pos code = 4410) Unit Number (test [id number] code = 4411) Blood Expiration Date & Time (test code = 333899) Status Information Issued (test code = 4412) Product Red Blood Cells Identification (test code = 4413) Product Code (test F9462B06 Performed at [facility] code = 4414) Laboratory Services [facility] Blood [address] [address]Jzwh Free: [phone] A No. [id number] [facility] Packed RBC (in units), 1 Units 2022-11-19 16:51:29 Test Item Value Reference Range Interpretation Comments Cross Match Result Compatible (test code = 4409) ISBT Blood Type Code 5100 (test code = 553968) Unit Blood Type (test O Pos code = 4410) Unit Number (test [id number] code = 4411) Blood Expiration Date & Time (test code = 379679) Status Information Issued (test code = 4412) Product Red Blood Cells Identification (test code = 4413) Product Code (test K6036L22 Performed at [facility] code = 4414) Laboratory [facility] Blood [address] [address]Gddp Free: [phone] A No. [id number] General acute hospital and Screen - ONCE [id number] 15:16:06 Test Item Value Reference Range Interpretation Comments ABO & RH (test code O POSITIVE Performe d at [facility] = 20) Laboratory [facility] Blood [facility] [address] [place] [address]Zqgt Free: [phone] A No. [id number] IAT (test code = Negative Performed a t [facility] 1185) Laboratory [facility] Blood [address] [address]Ueuy Free: [phone] A No. [id number] General acute hospital and Screen - ONCE [id number] 15:16:06 Test Item Value Reference Range Interpretation Comments ABO & RH (test code O POSITIVE Performe d at [facility] = 20) Laboratory [facility] Blood [facility] [address] [place] [address]Vqjg Free: [phone] A No. [id number] IAT (test code = Negative Performed a t [facility] 1185) Laboratory [facility] Blood [address] [address]Jead Free: [phone] A No. [id number] [facility] (in units), 2 Units 2022-11-19 13:57:17 Test Item Value Reference Range Interpretation Comments Cross Match Result Compatible (test code = 4409) ISBT Blood Type Code 5100 (test code = 650947) Unit Blood Type (test O Pos code = 4410) Unit Number (test [id number] code = 4411) Blood Expiration Date & Time (test code = 101405) Status Information Issued (test code = 4412) Product Red Blood Cells Identification (test code = 4413) Product Code (test P3209K09 Performed at [facility] code = 4414) [facility] Blood [address] [place] [address]Toll Free: [phone] A No. [id number] [facility] P[facility] RBC (in units), 2 Units 2022-11-19 13:57:17 Test Item Value Reference Range Interpretation Comments Cross Match Result Compatible (test code = 4409) ISBT Blood Type Code 5100 (test code = 091195) Unit Blood Type (test O Pos code = 4410) Unit Number (test [id number] code = 4411) Blood Expiration Date & Time (test code = 647072) Status Information Issued (test code = 4412) Product Red Blood Cells Identification (test code = 4413) Product Code (test P6674K42 Performed at [facility] code = 4414) [facility] Blood [address] Free: [phone] A No. [id number] [facility] [id number] 08:41:12 Test Item Value Reference Range Interpretation Comments ABO & RH (test code O Positive Performe d at [facility] = 20) Laboratory [facility] Blood [place] [address]Toll Free: [phone] A No. [id number] IAT (test code = Negative Performed a t [facility] 1185) Laboratory [facility] Blood [address] [place], [place] [address]Toll Free: [phone] A No. [id number] [facility] [id number] 08:41:12 Test Item Value Reference Range Interpretation Comments ABO & RH (test code O Positive Performe d at [facility] = 20) Laboratory [facility] Blood [place] [address]Toll Free: [phone] A No. [id number] IAT (test code = Negative Performed a t [facility] 1185) Laboratory [facility] Blood [address] [place] [address]Uejt Free: [phone] A No. [id number] [facility] GLUCOSE (AUTOMATED)2022-11-18 18:18:53 Test Item Value Reference Range Interpretation Comments POCT GLU (test code = 0085900877) 146 mg/dL 70-110 H Lab Interpretation (test code = Abnormal 51739-8) [facility] GLUCOSE (AUTOMATED)2022-11-18 18:18:53 Test Item Value Reference Range Interpretation Comments POCT GLU (test code = 7153806244) 146 mg/dL 70-110 H Lab Interpretation (test code = Abnormal 95778-2) [facility] WITH [id number] 17:35:27 Test Item Value Reference Range Interpretation Comments WBC (test code = 6.15 See_Comment [Automated 6690-2) message] The sy stem which generated this result transmitted reference range : 4.30 - 11.10 10*3/?L. The reference range was not used to interpret this result as normal/abnormal . RBC (test code = 2.77 See_Comment L [Automated 789-8) message] The sy stem which generated this result transmitted reference range : 3.93 - 5.25 10*6/?L. The reference range was not used to interpret this result as normal/abnormal . HGB (test code = 8.1 g/dL 11.6-15.0 L 718-7) HCT (test code = 25.0 % 35.7-45.2 L 4544-3) MCV (test code = 90.3 fL 80.6-95.5 787-2) MCH (test code = 29.2 pg 25.9-32.8 785-6) MCHC (test code = 32.4 g/dL 31.6-35.1 786-4) RDW-SD (test code = 63.2 fL 39.0-49.9 H 81849-2) RDW-CV (test code = 19.4 % 12.0-15.5 H 788-0) PLT (test code = 108 See_Comment L [Automated 777-3) message] The sy stem which generated this result transmitted reference range : 166 - 358 10*3/ ?L. The reference r yogesh was not used to interpret this result as normal/abnormal . MPV (test code = 10.2 fL 9.5-12.9 19192-6) NRBC/100 WBC (test 0.0 See_Comment [Automat ed code = 7514486481) message] The system which generated this result transmitted reference range : 0.0 - 10.0 /100 WBCs. The refer ence range was not u sed to interpret th is result as normal/abnormal . NRBC x10^3 (test code See_Comment [Auto mated = 8450049010) message] The s ystem which generated this result transmitted reference range : 10*3/?L. The reference range was not used to interpret this result as normal/abnormal . GRAN MAT (NEUT) % 70.1 % (test code = 770-8) IMM GRAN % (test code 0.20 % = 0251385808) LYMPH % (test code = 22.3 % 736-9) MONO % (test code = 6.5 % 5905-5) EOS % (test code = 0.7 % 713-8) BASO % (test code = 0.2 % 706-2) GRAN MAT x10^3(ANC) 4.32 10*3/uL 1.88-7.09 (test code = 7641434038) IMM GRAN x10^3 (test 0.00-0.06 code = 2173396796) LYMPH x10^3 (test code 1.37 10*3/uL 1.32-3.29 = 731-0) MONO x10^3 (test code 0.40 10*3/uL 0.33-0.92 = 742-7) EOS x10^3 (test code = 0.04 10*3/uL 0.03-0.39 711-2) BASO x10^3 (test code 0.01-0.07 = 704-7) Lab Interpretation Abnormal (test code = 68149-4) [facility] WITH [id number] 17:35:27 Test Item Value Reference Range Interpretation Comments WBC (test code = 6.15 See_Comment [Automated 6690-2) message] The sy stem which generated this result transmitted reference range : 4.30 - 11.10 10*3/?L. The reference range was not used to interpret this result as normal/abnormal . RBC (test code = 2.77 See_Comment L [Automated 789-8) message] The sy stem which generated this result transmitted reference range : 3.93 - 5.25 10*6/?L. The reference range was not used to interpret this result as normal/abnormal . HGB (test code = 8.1 g/dL 11.6-15.0 L 718-7) HCT (test code = 25.0 % 35.7-45.2 L 4544-3) MCV (test code = 90.3 fL 80.6-95.5 787-2) MCH (test code = 29.2 pg 25.9-32.8 785-6) MCHC (test code = 32.4 g/dL 31.6-35.1 786-4) RDW-SD (test code = 63.2 fL 39.0-49.9 H 47664-3) RDW-CV (test code = 19.4 % 12.0-15.5 H 788-0) PLT (test code = 108 See_Comment L [Automated 777-3) message] The sy stem which generated this result transmitted reference range : 166 - 358 10*3/ ?L. The reference r yogesh was not used to interpret this result as normal/abnormal . MPV (test code = 10.2 fL 9.5-12.9 88479-9) NRBC/100 WBC (test 0.0 See_Comment [Automat ed code = 1760380173) message] The system which generated this result transmitted reference range : 0.0 - 10.0 /100 WBCs. The refer ence range was not u sed to interpret th is result as normal/abnormal . NRBC x10^3 (test code See_Comment [Auto mated = 0920320037) message] The s ystem which generated this result transmitted reference range : 10*3/?L. The reference range was not used to interpret this result as normal/abnormal . GRAN MAT (NEUT) % 70.1 % (test code = 770-8) IMM GRAN % (test code 0.20 % = 6748368869) LYMPH % (test code = 22.3 % 736-9) MONO % (test code = 6.5 % 5905-5) EOS % (test code = 0.7 % 713-8) BASO % (test code = 0.2 % 706-2) GRAN MAT x10^3(ANC) 4.32 10*3/uL 1.88-7.09 (test code = 5176129968) IMM GRAN x10^3 (test 0.00-0.06 code = 3968331570) LYMPH x10^3 (test code 1.37 10*3/uL 1.32-3.29 = 731-0) MONO x10^3 (test code 0.40 10*3/uL 0.33-0.92 = 742-7) EOS x10^3 (test code = 0.04 10*3/uL 0.03-0.39 711-2) BASO x10^3 (test code 0.01-0.07 = 704-7) Lab Interpretation Abnormal (test code = 25171-1) [facility] Packed RBC (in units), 1 Units 2022-11-17 14:31:46 Test Item Value Reference Range Interpretation Comments Cross Match Result Compatible (test code = 4409) ISBT Blood Type Code 5100 (test code = 090868) Unit Blood Type (test O Pos code = 4410) Unit Number (test [id number] code = 4411) Blood Expiration Date & Time (test code = 238998) Status Information Issued (test code = 4412) Product Red Blood Cells Identification (test code = 4413) Product Code (test N0133X37 Performed at [facility] code = 4414) Laboratory Services - [facility] Blood [address] [place] [address]Ejeg Free: [phone] A No. [id number] [facility] Packed RBC (in units), 1 Units 2022-11-17 14:31:46 Test Item Value Reference Range Interpretation Comments Cross Match Result Compatible (test code = 4409) ISBT Blood Type Code 5100 (test code = 843520) Unit Blood Type (test O Pos code = 4410) Unit Number (test [id number] code = 4411) Blood Expiration Date & Time (test code = 011962) Status Information Issued (test code = 4412) Product Red Blood Cells Identification (test code = 4413) Product Code (test S5333C42 Performed at [facility] code = 4414) Laboratory Services [facility] Blood [address] [place] [address]Eryl Free: [phone] A No. [id number] [facility] P[facility] RBC (in units), 1 Units 2022-11-17 14:31:46 Test Item Value Reference Range Interpretation Comments Cross Match Result Compatible (test code = 4409) ISBT Blood Type Code 5100 (test code = 903818) Unit Blood Type (test O Pos code = 4410) Unit Number (test [id number] code = 4411) Blood Expiration Date & Time (test code = 231305) Status Information Issued (test code = 4412) Product Red Blood Cells Identification (test code = 4413) Product Code (test M3350I76 Performed at [facility] code = 4414) Laboratory Services - [facility] Blood [address] [place] [address]Jsdm Free: [phone] A No. [id number] [facility] P[facility] (in units), 2 Units 2022-11-17 13:49:49 Test Item Value Reference Range Interpretation Comments Cross Match Result Compatible (test code = 4409) ISBT Blood Type Code 5100 (test code = 060657) Unit Blood Type (test O Pos code = 4410) Unit Number (test [id number] code = 4411) Blood Expiration Date 636822949628 & Time (test code = 680393) Status Information Released (test code = 4412) Product Red Blood Cells Identification (test code = 4413) Product Code (test E4588P97 Performed at [facility] code = 4414) Laboratory Services [facility] Blood [address] [place] [address]Xpbd Free: [phone] A No. [id number] [facility] P[facility] RBC (in units), 2 Units 2022-11-17 13:49:49 Test Item Value Reference Range Interpretation Comments Cross Match Result Compatible (test code = 4409) ISBT Blood Type Code 5100 (test code = 022569) Unit Blood Type (test O Pos code = 4410) Unit Number (test [id number] code = 4411) Blood Expiration Date 508260765361 & Time (test code = 928285) Status Information Released (test code = 4412) Product Red Blood Cells Identification (test code = 4413) Product Code (test I3074D42 Performed at [facility] code = 4414) Laboratory Services - [facility] Blood [address] [address]Pyrg Free: [phone] A No. [id number] [facility] WITH [id number] 13:21:20 Test Item Value Reference Range Interpretation Comments WBC (test code = 5.97 See_Comment [Automated 6690-2) message] The sy stem which generated this result transmitted reference range : 4.30 - 11.10 10*3/?L. The reference range was not used to interpret this result as normal/abnormal . RBC (test code = 2.36 See_Comment L [Automated 789-8) message] The sy stem which generated this result transmitted reference range : 3.93 - 5.25 10*6/?L. The reference range was not used to interpret this result as normal/abnormal . HGB (test code = 7.0 g/dL 11.6-15.0 L 718-7) HCT (test code = 21.7 % 35.7-45.2 L 4544-3) MCV (test code = 91.9 fL 80.6-95.5 787-2) MCH (test code = 29.7 pg 25.9-32.8 785-6) MCHC (test code = 32.3 g/dL 31.6-35.1 786-4) RDW-SD (test code = 68.1 fL 39.0-49.9 H 42215-4) RDW-CV (test code = 20.7 % 12.0-15.5 H 788-0) PLT (test code = 103 See_Comment L [Automated 777-3) message] The sy stem which generated this result transmitted reference range : 166 - 358 10*3/ ?L. The reference r yogesh was not used to interpret this result as normal/abnormal . MPV (test code = 9.8 fL 9.5-12.9 95172-9) NRBC/100 WBC (test 0.0 See_Comment [Automat ed code = 4571681445) message] The system which generated this result transmitted reference range : 0.0 - 10.0 /100 WBCs. The refer ence range was not u sed to interpret th is result as normal/abnormal . NRBC x10^3 (test code See_Comment [Auto mated = 0357519090) message] The s ystem which generated this result transmitted reference range : 10*3/?L. The reference range was not used to interpret this result as normal/abnormal . GRAN MAT (NEUT) % 67.1 % (test code = 770-8) IMM GRAN % (test code 0.30 % = 7069008885) LYMPH % (test code = 24.8 % 736-9) MONO % (test code = 6.7 % 5905-5) EOS % (test code = 0.8 % 713-8) BASO % (test code = 0.3 % 706-2) GRAN MAT x10^3(ANC) 4.00 10*3/uL 1.88-7.09 (test code = 6782936778) IMM GRAN x10^3 (test 0.00-0.06 code = 9049483257) LYMPH x10^3 (test code 1.48 10*3/uL 1.32-3.29 = 731-0) MONO x10^3 (test code 0.40 10*3/uL 0.33-0.92 = 742-7) EOS x10^3 (test code = 0.05 10*3/uL 0.03-0.39 711-2) BASO x10^3 (test code 0.01-0.07 = 704-7) Lab Interpretation Abnormal (test code = 72767-0) [facility] WITH [id number] 13:21:20 Test Item Value Reference Range Interpretation Comments WBC (test code = 5.97 See_Comment [Automated 6690-2) message] The sy stem which generated this result transmitted reference range : 4.30 - 11.10 10*3/?L. The reference range was not used to interpret this result as normal/abnormal . RBC (test code = 2.36 See_Comment L [Automated 789-8) message] The sy stem which generated this result transmitted reference range : 3.93 - 5.25 10*6/?L. The reference range was not used to interpret this result as normal/abnormal . HGB (test code = 7.0 g/dL 11.6-15.0 L 718-7) HCT (test code = 21.7 % 35.7-45.2 L 4544-3) MCV (test code = 91.9 fL 80.6-95.5 787-2) MCH (test code = 29.7 pg 25.9-32.8 785-6) MCHC (test code = 32.3 g/dL 31.6-35.1 786-4) RDW-SD (test code = 68.1 fL 39.0-49.9 H 23770-2) RDW-CV (test code = 20.7 % 12.0-15.5 H 788-0) PLT (test code = 103 See_Comment L [Automated 777-3) message] The sy stem which generated this result transmitted reference range : 166 - 358 10*3/ ?L. The reference r yogesh was not used to interpret this result as normal/abnormal . MPV (test code = 9.8 fL 9.5-12.9 37723-9) NRBC/100 WBC (test 0.0 See_Comment [Automat ed code = 4302760608) message] The system which generated this result transmitted reference range : 0.0 - 10.0 /100 WBCs. The refer ence range was not u sed to interpret th is result as normal/abnormal . NRBC x10^3 (test code See_Comment [Auto mated = 2429485174) message] The s ystem which generated this result transmitted reference range : 10*3/?L. The reference range was not used to interpret this result as normal/abnormal . GRAN MAT (NEUT) % 67.1 % (test code = 770-8) IMM GRAN % (test code 0.30 % = 6167183733) LYMPH % (test code = 24.8 % 736-9) MONO % (test code = 6.7 % 5905-5) EOS % (test code = 0.8 % 713-8) BASO % (test code = 0.3 % 706-2) GRAN MAT x10^3(ANC) 4.00 10*3/uL 1.88-7.09 (test code = 5716134835) IMM GRAN x10^3 (test 0.00-0.06 code = 2910759888) LYMPH x10^3 (test code 1.48 10*3/uL 1.32-3.29 = 731-0) MONO x10^3 (test code 0.40 10*3/uL 0.33-0.92 = 742-7) EOS x10^3 (test code = 0.05 10*3/uL 0.03-0.39 711-2) BASO x10^3 (test code 0.01-0.07 = 704-7) Lab Interpretation Abnormal (test code = 27127-5) [facility] Packed RBC (in units), 1 Units 2022-11-17 07:30:09 Test Item Value Reference Range Interpretation Comments Cross Match Result Compatible (test code = 4409) ISBT Blood Type Code 5100 (test code = 750141) Unit Blood Type (test O Pos code = 4410) Unit Number (test [id number] code = 4411) Blood Expiration Date 941138232734 & Time (test code = 589700) Status Information Issued (test code = 4412) Product Red Blood Cells Identification (test code = 4413) Product Code (test U7530R02 Performed at [facility] code = 4414) Laboratory Services - [facility] Blood [address] [place] [address]Qhqd Free: [phone] A No. [id number] [facility] Packed RBC (in units), 1 Units 2022-11-17 07:30:09 Test Item Value Reference Range Interpretation Comments Cross Match Result Compatible (test code = 4409) ISBT Blood Type Code 5100 (test code = 531427) Unit Blood Type (test O Pos code = 4410) Unit Number (test [id number] code = 4411) Blood Expiration Date & Time (test code = 284756) Status Information Issued (test code = 4412) Product Red Blood Cells Identification (test code = 4413) Product Code (test G6635D37 Performed at [facility] code = 4414) Laboratory Services - [facility] Blood [address] s [address]Zoon Free: [phone] A No. [id number] [facility] (in units), 1 Units 2022-11-17 07:30:09 Test Item Value Reference Range Interpretation Comments Cross Match Result Compatible (test code = 4409) ISBT Blood Type Code 5100 (test code = 613002) Unit Blood Type (test O Pos code = 4410) Unit Number (test [id number] code = 4411) Blood Expiration Date & Time (test code = 889920) Status Information Issued (test code = 4412) Product Red Blood Cells Identification (test code = 4413) Product Code (test A3738W55 Performed at [facility] code = 4414) Laboratory Services - [facility] Blood [address] s [address]Tcyl Free: [phone] A No. [id number] [facility] [id number] 00:43:06 Test Item Value Reference Range Interpretation Comments WBC (test code = 6.34 See_Comment [Automated 6690-2) message] The sy stem which generated this result transmitted reference range : 4.30 - 11.10 10*3/?L. The reference range was not used to interpret this result as normal/abnormal . RBC (test code = 2.29 See_Comment L [Automated 789-8) message] The sy stem which generated this result transmitted reference range : 3.93 - 5.25 10*6/?L. The reference range was not used to interpret this result as normal/abnormal . HGB (test code = 7.0 g/dL 11.6-15.0 L 718-7) HCT (test code = 21.9 % 35.7-45.2 L 4544-3) MCV (test code = 95.6 fL 80.6-95.5 H 787-2) MCH (test code = 30.6 pg 25.9-32.8 785-6) MCHC (test code = 32.0 g/dL 31.6-35.1 786-4) RDW-SD (test code = 58.4 fL 39.0-49.9 H 41286-0) RDW-CV (test code = 16.9 % 12.0-15.5 H 788-0) PLT (test code = 121 See_Comment L [Automated 777-3) message] The sy stem which generated this result transmitted reference range : 166 - 358 10*3/ ?L. The reference r yogesh was not used to interpret this result as normal/abnormal . MPV (test code = 10.7 fL 9.5-12.9 71984-5) NRBC/100 WBC (test 0.0 See_Comment [Automat ed code = 5733322786) message] The system which generated this result transmitted reference range : 0.0 - 10.0 /100 WBCs. The refer ence range was not u sed to interpret th is result as normal/abnormal . NRBC x10^3 (test code See_Comment [Auto mated = 3848829509) message] The s ystem which generated this result transmitted reference range : 10*3/?L. The reference range was not used to interpret this result as normal/abnormal . GRAN MAT (NEUT) % 75.5 % (test code = 770-8) IMM GRAN % (test code 0.20 % = 9145642456) LYMPH % (test code = 18.5 % 736-9) MONO % (test code = 5.4 % 5905-5) EOS % (test code = 0.2 % 713-8) BASO % (test code = 0.2 % 706-2) GRAN MAT x10^3(ANC) 4.80 10*3/uL 1.88-7.09 (test code = 9768493305) IMM GRAN x10^3 (test 0.00-0.06 code = 5307782198) LYMPH x10^3 (test code 1.17 10*3/uL 1.32-3.29 L = 731-0) MONO x10^3 (test code 0.34 10*3/uL 0.33-0.92 = 742-7) EOS x10^3 (test code = 0.03-0.39 L 711-2) BASO x10^3 (test code 0.01-0.07 = 704-7) Lab Interpretation Abnormal (test code = 01452-9) [facility] WITH [id number] 00:43:06 Test Item Value Reference Range Interpretation Comments WBC (test code = 6.34 See_Comment [Automated 6690-2) message] The sy stem which generated this result transmitted reference range : 4.30 - 11.10 10*3/?L. The reference range was not used to interpret this result as normal/abnormal . RBC (test code = 2.29 See_Comment L [Automated 789-8) message] The sy stem which generated this result transmitted reference range : 3.93 - 5.25 10*6/?L. The reference range was not used to interpret this result as normal/abnormal . HGB (test code = 7.0 g/dL 11.6-15.0 L 718-7) HCT (test code = 21.9 % 35.7-45.2 L 4544-3) MCV (test code = 95.6 fL 80.6-95.5 H 787-2) MCH (test code = 30.6 pg 25.9-32.8 785-6) MCHC (test code = 32.0 g/dL 31.6-35.1 786-4) RDW-SD (test code = 58.4 fL 39.0-49.9 H 93437-2) RDW-CV (test code = 16.9 % 12.0-15.5 H 788-0) PLT (test code = 121 See_Comment L [Automated 777-3) message] The sy stem which generated this result transmitted reference range : 166 - 358 10*3/ ?L. The reference r yogesh was not used to interpret this result as normal/abnormal . MPV (test code = 10.7 fL 9.5-12.9 57893-2) NRBC/100 WBC (test 0.0 See_Comment [Automat ed code = 6011741303) message] The system which generated this result transmitted reference range : 0.0 - 10.0 /100 WBCs. The refer ence range was not u sed to interpret th is result as normal/abnormal . NRBC x10^3 (test code See_Comment [Auto mated = 6991251433) message] The s ystem which generated this result transmitted reference range : 10*3/?L. The reference range was not used to interpret this result as normal/abnormal . GRAN MAT (NEUT) % 75.5 % (test code = 770-8) IMM GRAN % (test code 0.20 % = 0160494067) LYMPH % (test code = 18.5 % 736-9) MONO % (test code = 5.4 % 5905-5) EOS % (test code = 0.2 % 713-8) BASO % (test code = 0.2 % 706-2) GRAN MAT x10^3(ANC) 4.80 10*3/uL 1.88-7.09 (test code = 7958408509) IMM GRAN x10^3 (test 0.00-0.06 code = 3648316254) LYMPH x10^3 (test code 1.17 10*3/uL 1.32-3.29 L = 731-0) MONO x10^3 (test code 0.34 10*3/uL 0.33-0.92 = 742-7) EOS x10^3 (test code = 0.03-0.39 L 711-2) BASO x10^3 (test code 0.01-0.07 = 704-7) Lab Interpretation Abnormal (test code = 65490-6) [facility] WITH [id number] 21:10:11 Test Item Value Reference Range Interpretation Comments WBC (test code = 5.57 See_Comment [Automated 3990-2) message] The sy stem which generated this result transmitted reference range : 4.30 - 11.10 10*3/?L. The reference range was not used to interpret this result as normal/abnormal . RBC (test code = 2.15 See_Comment L [Automated 929-8) message] The sy stem which generated this result transmitted reference range : 3.93 - 5.25 10*6/?L. The reference range was not used to interpret this result as normal/abnormal . HGB (test code = 6.8 g/dL 11.6-15.0 L 718-7) HCT (test code = 21.0 % 35.7-45.2 L 4544-3) MCV (test code = 97.7 fL 80.6-95.5 H 787-2) MCH (test code = 31.6 pg 25.9-32.8 785-6) MCHC (test code = 32.4 g/dL 31.6-35.1 786-4) RDW-SD (test code = 54.9 fL 39.0-49.9 H 85540-8) RDW-CV (test code = 15.5 % 12.0-15.5 788-0) PLT (test code = 125 See_Comment L [Automated 777-3) message] The sy stem which generated this result transmitted reference range : 166 - 358 10*3/ ?L. The reference r yogesh was not used to interpret this result as normal/abnormal . MPV (test code = 10.4 fL 9.5-12.9 79537-4) NRBC/100 WBC (test 0.0 See_Comment [Automat ed code = 1312325726) message] The system which generated this result transmitted reference range : 0.0 - 10.0 /100 WBCs. The refer ence range was not u sed to interpret th is result as normal/abnormal . NRBC x10^3 (test code See_Comment [Auto mated = 0040499729) message] The s ystem which generated this result transmitted reference range : 10*3/?L. The reference range was not used to interpret this result as normal/abnormal . GRAN MAT (NEUT) % 68.8 % (test code = 770-8) IMM GRAN % (test code 0.40 % = 3443869439) LYMPH % (test code = 23.2 % 736-9) MONO % (test code = 7.2 % 5905-5) EOS % (test code = 0.2 % 713-8) BASO % (test code = 0.2 % 706-2) GRAN MAT x10^3(ANC) 3.84 10*3/uL 1.88-7.09 (test code = 4036704161) IMM GRAN x10^3 (test 0.00-0.06 code = 4422774287) LYMPH x10^3 (test code 1.29 10*3/uL 1.32-3.29 L = 731-0) MONO x10^3 (test code 0.40 10*3/uL 0.33-0.92 = 742-7) EOS x10^3 (test code = 0.03-0.39 L 711-2) BASO x10^3 (test code 0.01-0.07 = 704-7) Lab Interpretation Abnormal (test code = 79808-4) [facility] WITH [id number] 21:10:11 Test Item Value Reference Range Interpretation Comments WBC (test code = 5.57 See_Comment [Automated 6690-2) message] The sy stem which generated this result transmitted reference range : 4.30 - 11.10 10*3/?L. The reference range was not used to interpret this result as normal/abnormal . RBC (test code = 2.15 See_Comment L [Automated 789-8) message] The sy stem which generated this result transmitted reference range : 3.93 - 5.25 10*6/?L. The reference range was not used to interpret this result as normal/abnormal . HGB (test code = 6.8 g/dL 11.6-15.0 L 718-7) HCT (test code = 21.0 % 35.7-45.2 L 4544-3) MCV (test code = 97.7 fL 80.6-95.5 H 787-2) MCH (test code = 31.6 pg 25.9-32.8 785-6) MCHC (test code = 32.4 g/dL 31.6-35.1 786-4) RDW-SD (test code = 54.9 fL 39.0-49.9 H 32672-9) RDW-CV (test code = 15.5 % 12.0-15.5 788-0) PLT (test code = 125 See_Comment L [Automated 777-3) message] The sy stem which generated this result transmitted reference range : 166 - 358 10*3/ ?L. The reference r yogesh was not used to interpret this result as normal/abnormal . MPV (test code = 10.4 fL 9.5-12.9 42026-3) NRBC/100 WBC (test 0.0 See_Comment [Automat ed code = 9380659522) message] The system which generated this result transmitted reference range : 0.0 - 10.0 /100 WBCs. The refer ence range was not u sed to interpret th is result as normal/abnormal . NRBC x10^3 (test code See_Comment [Auto mated = 6635293450) message] The s ystem which generated this result transmitted reference range : 10*3/?L. The reference range was not used to interpret this result as normal/abnormal . GRAN MAT (NEUT) % 68.8 % (test code = 770-8) IMM GRAN % (test code 0.40 % = 6214979228) LYMPH % (test code = 23.2 % 736-9) MONO % (test code = 7.2 % 5905-5) EOS % (test code = 0.2 % 713-8) BASO % (test code = 0.2 % 706-2) GRAN MAT x10^3(ANC) 3.84 10*3/uL 1.88-7.09 (test code = 1243724207) IMM GRAN x10^3 (test 0.00-0.06 code = 5993431110) LYMPH x10^3 (test code 1.29 10*3/uL 1.32-3.29 L = 731-0) MONO x10^3 (test code 0.40 10*3/uL 0.33-0.92 = 742-7) EOS x10^3 (test code = 0.03-0.39 L 711-2) BASO x10^3 (test code 0.01-0.07 = 704-7) Lab Interpretation Abnormal (test code = 70577-9) [facility] METABOLIC PANEL (NA, K, CL, CO2, GLUCOSE, BUN, CREATININE, CA)2022-11-16 19:16:21 Test Item Value Reference Range Interpretation Comments NA (test code = 136 mmol/L 135-145 8445639628) K (test code = 3.8 mmol/L 3.5-5.0 Slight 5617333077) hemolysis CL (test code = 112 mmol/L 98-108 H 8908218176) CO2 TOTAL (test code 23 mmol/L 23-31 = 1073664012) AGAP (test code = 1 2-16 L 1366949333) BUN (test code = 14 mg/dL 7-23 Slight 7776460497) hemolysis GLUCOSE (test code = 180 mg/dL 70-110 H 9326286338) CREATININE (test code 0.77 mg/dL 0.50-1.04 = 9761751659) CALCIUM (test code = 7.3 mg/dL 8.6-10.6 L 8125992977) eGFR (test code = 74.5 mL/min/1.73m2 0228589707) BLAINE (test code = BLAINE) Association of Glomerular Filtration Rate (GFR) and Staging of Kidney Disease* + -----+ --------+ +| GFR (mL/min/1.73 m2) ?| With Kidney Damage ?| ?Without Kidney Damage+ +------- +---- --+| ?>90 ?| ?Stage one ?| ? Normal ?+ ------+ ---------+--------- +| ?60-89 ?| ?Stage two ?| ? Decreased GFR ? + -----+ --------+ +| ?30-59 ?| ?Stage three ?| ? Stage three ? + -----+ --------+ +| ?15-29 ?| ?Stage four ? | ? Stage four ?+ ------+ ---------+--------- +| ?<15 (or dialysis) ? ?| ?Stage five ? | ? Stage five ?+ ------+ ---------+--------- + *Each stage assumes the associated GFR level has been in effect for at least three months. ?Stages 1 to 5, with or without kidney disease, indicate chronic kidney disease. Notes: Determination of stages one and two (with eGFR >59mL/min/1.73 m2) requires estimation of kidney damage for at least three months as defined by structural or functional abnormalities of the kidney, manifested by either:Pathological abnormalities or Markers of kidney damage (including abnormalities in the composition of the blood or urine or abnormalities in imaging tests). Lab Interpretation Abnormal (test code = 51360-5) [facility] METABOLIC PANEL (NA, K, CL, CO2, GLUCOSE, BUN, CREATININE, CA)2022-11-16 19:16:21 Test Item Value Reference Range Interpretation Comments NA (test code = 136 mmol/L 135-145 6004601493) K (test code = 3.8 mmol/L 3.5-5.0 Slight 9090803214) hemolysis CL (test code = 112 mmol/L 98-108 H 2033549280) CO2 TOTAL (test code 23 mmol/L 23-31 = 5948075025) AGAP (test code = 1 2-16 L 2968853676) BUN (test code = 14 mg/dL 7-23 Slight 2581211175) hemolysis GLUCOSE (test code = 180 mg/dL 70-110 H 6812937523) CREATININE (test code 0.77 mg/dL 0.50-1.04 = 5869402012) CALCIUM (test code = 7.3 mg/dL 8.6-10.6 L 0305805023) eGFR (test code = 74.5 mL/min/1.73m2 9541605258) BLAINE (test code = BLAINE) Association of Glomerular Filtration Rate (GFR) and Staging of Kidney Disease* + -----+ --------+ +| GFR (mL/min/1.73 m2) ?| With Kidney Damage ?| ?Without Kidney Damage+ +------- +---- --+| ?>90 ?| ?Stage one ?| ? Normal ?+ ------+ ---------+--------- +| ?60-89 ?| ?Stage two ?| ? Decreased GFR ? + -----+ --------+ +| ?30-59 ?| ?Stage three ?| ? Stage three ? + -----+ --------+ +| ?15-29 ?| ?Stage four ? | ? Stage four ?+ ------+ ---------+--------- +| ?<15 (or dialysis) ? ?| ?Stage five ? | ? Stage five ?+ ------+ ---------+--------- + *Each stage assumes the associated GFR level has been in effect for at least three months. ?Stages 1 to 5, with or without kidney disease, indicate chronic kidney disease. Notes: Determination of stages one and two (with eGFR >59mL/min/1.73 m2) requires estimation of kidney damage for at least three months as defined by structural or functional abnormalities of the kidney, manifested by either:Pathological abnormalities or Markers of kidney damage (including abnormalities in the composition of the blood or urine or abnormalities in imaging tests). Lab Interpretation Abnormal (test code = 11446-4) [facility] METABOLIC PANEL (NA, K, CL, CO2, GLUCOSE, BUN, CREATININE, CA)2022-11-16 19:16:21 Test Item Value Reference Range Interpretation Comments NA (test code = 136 mmol/L 135-145 5785092403) K (test code = 3.8 mmol/L 3.5-5.0 Slight 6911904363) hemolysis CL (test code = 112 mmol/L 98-108 H 0874602040) CO2 TOTAL (test code 23 mmol/L 23-31 = 0266924190) AGAP (test code = 1 2-16 L 4597653422) BUN (test code = 14 mg/dL 7-23 Slight 0456499886) hemolysis GLUCOSE (test code = 180 mg/dL 70-110 H 2907281670) CREATININE (test code 0.77 mg/dL 0.50-1.04 = 1501327505) CALCIUM (test code = 7.3 mg/dL 8.6-10.6 L 8441603678) eGFR (test code = 74.5 mL/min/1.73m2 2793986570) BLAINE (test code = BLAINE) Association of Glomerular Filtration Rate (GFR) and Staging of Kidney Disease* + -----+ --------+ +| GFR (mL/min/1.73 m2) ?| With Kidney Damage ?| ?Without Kidney Damage+ +------- +---- --+| ?>90 ?| ?Stage one ?| ? Normal ?+ ------+ ---------+--------- +| ?60-89 ?| ?Stage two ?| ? Decreased GFR ? + -----+ --------+ +| ?30-59 ?| ?Stage three ?| ? Stage three ? + -----+ --------+ +| ?15-29 ?| ?Stage four ? | ? Stage four ?+ ------+ ---------+--------- +| ?<15 (or dialysis) ? ?| ?Stage five ? | ? Stage five ?+ ------+ ---------+--------- + *Each stage assumes the associated GFR level has been in effect for at least three months. ?Stages 1 to 5, with or without kidney disease, indicate chronic kidney disease. Notes: Determination of stages one and two (with eGFR >59mL/min/1.73 m2) requires estimation of kidney damage for at least three months as defined by structural or functional abnormalities of the kidney, manifested by either:Pathological abnormalities or Markers of kidney damage (including abnormalities in the composition of the blood or urine or abnormalities in imaging tests). Lab Interpretation Abnormal (test code = 61141-3) General acute hospital and Screen - ONCE [id number] 19:11:58 Test Item Value Reference Range Interpretation Comments ABO & RH (test code O POSITIVE Performe d at [facility] = 20) Laboratory [facility] Blood [address] [address]Fuih Free: [phone] A No. [id number] IAT (test code = Negative Performed a t [facility] 1185) Laboratory [facility] Blood [address] [address]Hbhx Free: [phone] A No. [id number] General acute hospital and Screen - ONCE [id number] 19:11:58 Test Item Value Reference Range Interpretation Comments ABO & RH (test code O POSITIVE Performe d at [facility] = 20) Laboratory [facility] Blood [address] [address]Zkwf Free: [phone] A No. [id number] IAT (test code = Negative Performed a t [facility] 1185) Laboratory [facility] Blood [address] [place] [address] s [address]Sptm Free: [phone] A No. [id number] General acute hospital and Screen - ONCE [id number] 19:11:58 Test Item Value Reference Range Interpretation Comments ABO & RH (test code O POSITIVE Performe d at [facility] = 20) Laboratory [facility] Blood [address] [address]Upkt Free: [phone] A No. [id number] IAT (test code = Negative Performed a t [facility] 1185) Laboratory [facility] Blood Bank[address] [facility] [address]Jybz Free: [phone] A No. [id number] [facility] [id number] 19:11:58 Test Item Value Reference Range Interpretation Comments ABO & RH (test code O POSITIVE Performe d at [facility] = 20) Laboratory [facility] Blood [address] [address]Vuet Free: [phone] A No. [id number] IAT (test code = Negative Performed a t [facility] 1185) Laboratory [facility] Blood [address] [address]Dccn Free: [phone] A No. [id number] [facility] [id number] 19:04:25 Test Item Value Reference Range Interpretation Comments WBC (test code = 6.15 See_Comment [Automated 6690-2) message] The sy stem which generated this result transmitted reference range : 4.30 - 11.10 10*3/?L. The reference range was not used to interpret this result as normal/abnormal . RBC (test code = 2.11 See_Comment L [Automated 379-8) message] The sy stem which generated this result transmitted reference range : 3.93 - 5.25 10*6/?L. The reference range was not used to interpret this result as normal/abnormal . HGB (test code = 6.5 g/dL 11.6-15.0 L 718-7) HCT (test code = 20.7 % 35.7-45.2 L 4544-3) MCV (test code = 98.1 fL 80.6-95.5 H 787-2) MCH (test code = 30.8 pg 25.9-32.8 785-6) MCHC (test code = 31.4 g/dL 31.6-35.1 L 786-4) RDW-SD (test code = 49.2 fL 39.0-49.9 39601-4) RDW-CV (test code = 13.9 % 12.0-15.5 788-0) PLT (test code = 151 See_Comment L [Automated 777-3) message] The sy stem which generated this result transmitted reference range : 166 - 358 10*3/ ?L. The reference r yogesh was not used to interpret this result as normal/abnormal . MPV (test code = 10.5 fL 9.5-12.9 98896-3) NRBC/100 WBC (test 0.3 See_Comment [Automat ed code = 8722542733) message] The system which generated this result transmitted reference range : 0.0 - 10.0 /100 WBCs. The refer ence range was not u sed to interpret th is result as normal/abnormal . NRBC x10^3 (test code 0.02 See_Comment [Auto mated = 0158615832) message] The s ystem which generated this result transmitted reference range : 10*3/?L. The reference range was not used to interpret this result as normal/abnormal . GRAN MAT (NEUT) % 50.1 % (test code = 770-8) IMM GRAN % (test code 0.70 % = 2116716994) LYMPH % (test code = 41.3 % 736-9) MONO % (test code = 7.2 % 5905-5) EOS % (test code = 0.5 % 713-8) BASO % (test code = 0.2 % 706-2) GRAN MAT x10^3(ANC) 3.09 10*3/uL 1.88-7.09 (test code = 7509079585) IMM GRAN x10^3 (test 0.04 10*3/uL 0.00-0.06 code = 6508921589) LYMPH x10^3 (test code 2.54 10*3/uL 1.32-3.29 = 731-0) MONO x10^3 (test code 0.44 10*3/uL 0.33-0.92 = 742-7) EOS x10^3 (test code = 0.03 10*3/uL 0.03-0.39 711-2) BASO x10^3 (test code 0.01-0.07 = 704-7) Lab Interpretation Abnormal (test code = 42906-7) [facility] WITH [id number] 19:04:25 Test Item Value Reference Range Interpretation Comments WBC (test code = 6.15 See_Comment [Automated 6690-2) message] The sy stem which generated this result transmitted reference range : 4.30 - 11.10 10*3/?L. The reference range was not used to interpret this result as normal/abnormal . RBC (test code = 2.11 See_Comment L [Automated 789-8) message] The sy stem which generated this result transmitted reference range : 3.93 - 5.25 10*6/?L. The reference range was not used to interpret this result as normal/abnormal . HGB (test code = 6.5 g/dL 11.6-15.0 L 718-7) HCT (test code = 20.7 % 35.7-45.2 L 4544-3) MCV (test code = 98.1 fL 80.6-95.5 H 787-2) MCH (test code = 30.8 pg 25.9-32.8 785-6) MCHC (test code = 31.4 g/dL 31.6-35.1 L 786-4) RDW-SD (test code = 49.2 fL 39.0-49.9 39328-6) RDW-CV (test code = 13.9 % 12.0-15.5 788-0) PLT (test code = 151 See_Comment L [Automated 777-3) message] The sy stem which generated this result transmitted reference range : 166 - 358 10*3/ ?L. The reference r yogesh was not used to interpret this result as normal/abnormal . MPV (test code = 10.5 fL 9.5-12.9 50273-0) NRBC/100 WBC (test 0.3 See_Comment [Automat ed code = 5490945153) message] The system which generated this result transmitted reference range : 0.0 - 10.0 /100 WBCs. The refer ence range was not u sed to interpret th is result as normal/abnormal . NRBC x10^3 (test code 0.02 See_Comment [Auto mated = 3724426911) message] The s ystem which generated this result transmitted reference range : 10*3/?L. The reference range was not used to interpret this result as normal/abnormal . GRAN MAT (NEUT) % 50.1 % (test code = 770-8) IMM GRAN % (test code 0.70 % = 7618638153) LYMPH % (test code = 41.3 % 736-9) MONO % (test code = 7.2 % 5905-5) EOS % (test code = 0.5 % 713-8) BASO % (test code = 0.2 % 706-2) GRAN MAT x10^3(ANC) 3.09 10*3/uL 1.88-7.09 (test code = 7933971574) IMM GRAN x10^3 (test 0.04 10*3/uL 0.00-0.06 code = 2539613201) LYMPH x10^3 (test code 2.54 10*3/uL 1.32-3.29 = 731-0) MONO x10^3 (test code 0.44 10*3/uL 0.33-0.92 = 742-7) EOS x10^3 (test code = 0.03 10*3/uL 0.03-0.39 711-2) BASO x10^3 (test code 0.01-0.07 = 704-7) Lab Interpretation Abnormal (test code = 91742-9) [facility]CA2[facility]-11-16 18:36:24 Test Item Value Reference Range Interpretation Comments PH (test code = 2) 7.48 7.35-7.45 H PCO2 (test code = 31 See_Comment L [Automate d message] 8131773355) The system [employer] generated this result transmit mitali reference range : 35 - 45 mmHg. The reference range was not used to interpret this result as normal/abnormal . PO2 (test code = 89 See_Comment [Automated message] 9868957501) The system [employer] generated this result transmit mitali reference range : 80 - 100 mmHg. The reference range was not used to interpret this result as normal/abnormal . HCO3 (test code = 23 See_Comment [Automate d message] 1737605974) The system [employer] generated this result transmit mitali reference range : 22 - 26 mEq/L. The reference range was not used to interpret this result as normal/abnormal . BE (test code = -0.6 See_Comment [Automated message] 0966143370) The system [employer] generated this result transmit mitali reference range : -3.0 - 3.0 mEq/ L. The reference r yogesh was not used to interpret this result as normal/abnormal . THB (test code = 7.5 g/dL 12.0-16.0 LL [id number]) %O2HB (test code = 95.3 % 94.0-99.0 [id number]) %COHB ART (test code = 1.5 % 0.0-1.5 [id number]) %METHB ART (test code = 0.3 % 0.4-1.5 L [id number]) VOL%O2 ART (test code = 10.2 % 15.0-23.0 L [id number]) NA (test code = 138 mmol/L 135-145 [id number]) K+ (test code = 3.1 mmol/L 3.5-5.0 L 6805455629) AC CA IONZ (test code = 4.10 mg/dL 4.50-5.30 L 1680820522) GLUCOSE (test code = 191 mg/dL 70-110 H [id number]) Lab Interpretation Abnormal (test code = 34836-1) [facility] 18:36:24 Test Item Value Reference Range Interpretation Comments PH (test code = 2) 7.48 7.35-7.45 H PCO2 (test code = 31 See_Comment L [Automate d message] [id number]) The system [employer] generated this result transmit mitali reference range : 35 - 45 mmHg. The reference range was not used to interpret this result as normal/abnormal . PO2 (test code = 89 See_Comment [Automated message] [id number]) The system [employer] generated this result transmit mitali reference range : 80 - 100 mmHg. The reference range was not used to interpret this result as normal/abnormal . HCO3 (test code = 23 See_Comment [Automate d message] [id number]) The system [employer] generated this result transmit mitali reference range : 22 - 26 mEq/L. The reference range was not used to interpret this result as normal/abnormal . BE (test code = -0.6 See_Comment [Automated message] [id number]) The system [employer] generated this result transmit mitali reference range : -3.0 - 3.0 mEq/ L. The reference r yogesh was not used to interpret this result as normal/abnormal . THB (test code = 7.5 g/dL 12.0-16.0 LL [id number]) %O2HB (test code = 95.3 % 94.0-99.0 9734775616) %COHB ART (test code = 1.5 % 0.0-1.5 6585666758) %METHB ART (test code = 0.3 % 0.4-1.5 L 9323681642) VOL%O2 ART (test code = 10.2 % 15.0-23.0 L [id number]) NA (test code = 138 mmol/L 135-145 [id number]) K+ (test code = 3.1 mmol/L 3.5-5.0 L 7360760624) AC CA IONZ (test code = 4.10 mg/dL 4.50-5.30 L [id number]) GLUCOSE (test code = 191 mg/dL 70-110 H [id number]) Lab Interpretation Abnormal (test code = 87879-8) [facility] 18:36:24 Test Item Value Reference Range Interpretation Comments PH (test code = 2) 7.48 7.35-7.45 H PCO2 (test code = 31 See_Comment L [Automate d message] [id number]) The system [employer] generated this result transmit mitali reference range : 35 - 45 mmHg. The reference range was not used to interpret this result as normal/abnormal . PO2 (test code = 89 See_Comment [Automated message] [id number]) The system [employer] generated this result transmit mitali reference range : 80 - 100 mmHg. The reference range was not used to interpret this result as normal/abnormal . HCO3 (test code = 23 See_Comment [Automate d message] [id number]) The system [employer] generated this result transmit mitali reference range : 22 - 26 mEq/L. The reference range was not used to interpret this result as normal/abnormal . BE (test code = -0.6 See_Comment [Automated message] [id number]) The system [employer] generated this result transmit mitali reference range : -3.0 - 3.0 mEq/ L. The reference r yogesh was not used to interpret this result as normal/abnormal . THB (test code = 7.5 g/dL 12.0-16.0 LL [id number]) %O2HB (test code = 95.3 % 94.0-99.0 3625526218) %COHB ART (test code = 1.5 % 0.0-1.5 3253804694) %METHB ART (test code = 0.3 % 0.4-1.5 L 1680471364) VOL%O2 ART (test code = 10.2 % 15.0-23.0 L [id number]) NA (test code = 138 mmol/L 135-145 5990238044) K+ (test code = 3.1 mmol/L 3.5-5.0 L 5051650723) AC CA IONZ (test code = 4.10 mg/dL 4.50-5.30 L 5569358724) GLUCOSE (test code = 191 mg/dL 70-110 H [id number]) Lab Interpretation Abnormal (test code = 91662-2) [facility] 18:36:24 Test Item Value Reference Range Interpretation Comments PH (test code = 2) 7.48 7.35-7.45 H PCO2 (test code = 31 See_Comment L [Automate d message] [id number]) The system [employer] generated this result transmit mitali reference range : 35 - 45 mmHg. The reference range was not used to interpret this result as normal/abnormal . PO2 (test code = 89 See_Comment [Automated message] [id number]) The system [employer] generated this result transmit mitali reference range : 80 - 100 mmHg. The reference range was not used to interpret this result as normal/abnormal . HCO3 (test code = 23 See_Comment [Automate d message] [id number]) The system [employer] generated this result transmit mitali reference range : 22 - 26 mEq/L. The reference range was not used to interpret this result as normal/abnormal . BE (test code = -0.6 See_Comment [Automated message] [id number]) The system [employer] generated this result transmit mitali reference range : -3.0 - 3.0 mEq/ L. The reference r yogesh was not used to interpret this result as normal/abnormal . THB (test code = 7.5 g/dL 12.0-16.0 LL [id number]) %O2HB (test code = 95.3 % 94.0-99.0 7659215896) %COHB ART (test code = 1.5 % 0.0-1.5 7609716937) %METHB ART (test code = 0.3 % 0.4-1.5 L [id number]) VOL%O2 ART (test code = 10.2 % 15.0-23.0 L 5694184309) NA (test code = 138 mmol/L 135-145 2560270655) K+ (test code = 3.1 mmol/L 3.5-5.0 L 0789179306) AC CA IONZ (test code = 4.10 mg/dL 4.50-5.30 L 3819229365) GLUCOSE (test code = 191 mg/dL 70-110 H [id number]) Lab Interpretation Abnormal (test code = 38879-9) [facility]"
[2023-08-28 18:08] LABS: Absolute Lymphocytes (CBC) 1.5 K/uL (0.7-4.9); Hematocrit 34.8 % (36.0-45.0); Lymphocytes % 28.2 % (15.3-44.8); MCV 101.2 fL (80-100); MPV 8.5 fL (7.6-11.3); Platelets 156 thou/uL (152-406); RBC Red Blood Cell Count 3.44 M/uL (3.86-4.86)
[2023-08-28] MEDS ORDERED: NA CHLORIDE 0.9% 1,000 ML ONE (18:14)
[2023-08-28] MEDS ORDERED: CEFTRIAXONE 1000 MG/VIAL ONE (18:14)
[2023-08-28] MEDS ORDERED: CIPROFLOXACIN 400mg IV 400 MG/200 ML BAG IV ONE (18:14)
[2023-08-28 18:15] LABS: Protime INR 1.34
[2023-08-28] MEDS ORDERED: NA CHLORIDE 0.9% 50 ML ONE (18:15)
[2023-08-28] MEDS ORDERED: METRONIDAZOLE 500mg IVPB 500 MG/100 ML BAG IV ONE (18:15)
[2023-08-28 18:30] LABS: Albumin 3.5 g/dL (3.4-5.0); Bilirubin Direct 0.2 mg/dL (0-0.2); Bilirubin Indirect, Calculated 0.5 mg/dL (0.2-0.8); Bilirubin Total 0.7 mg/dL (0.2-1.0); Magnesium 1.9 mg/dL (1.6-2.4); Potassium 3.6 mEq/L (3.5-5.1); Protein, Total 7.2 g/dL (6.4-8.2); Troponin High Sensitivity 4.6 pg/mL (<58.9)
--- NOTE | 2023-08-28 18:51 | ER ---
Nurse's Notes [facility] Name: Toshia Armenta Age: 68 yrs Sex: Female : 1955 Arrival Date: 08/28/2023 Time: 17:32 Bed 15 Private MD: Diagnosis: Abdominal tenderness;Diverticulosis of large intestine without perforation or abscess with bleeding;Anemia, unspecified;halfway (current) use of anticoagulants-aspirin Presentation: 08/28 17:38 Chief complaint: Patient states: Rectal bleeding x2 today. Has hx of diverticulitis. nj 17:38 Coronavirus screen: Vaccine status: Patient reports receiving the 2nd dose of the covid nj1 vaccine. Ebola Screen: Patient denies travel to an Ebola-affected area in the 21 days before illness onset. Initial Sepsis Screen: Does the patient meet any 2 criteria? No. Patient's initial sepsis screen is negative. Does the patient have a suspected source of infection? No. Patient's initial sepsis screen is negative. Risk Assessment: Do you want to hurt yourself or someone else? Patient reports no desire to harm self or others. Onset of symptoms was August 28, 2023. 17:38 Method Of Arrival: Ambulatory [facility] 17:38 Acuity: CHARLI 3 nj1 Historical: - Allergies: 17:47 PENICILLINS; nj1 17:47 Sulfa (Sulfonamide Antibiotics); nj1 - PMHx: 17:47 Diverticulitis; Hypertension; nerve pain; Anemia; Hypercholesterolemia; Coronary nj1 atherosclerosis; - Immunization history:: Client reports receiving the 2nd dose of the Covid vaccine. - Social history:: Smoking status: Patient reports the use of cigarette tobacco products, smokes one-half pack cigarettes per day. - Family history:: not pertinent. Screenin:42 [facility] [place] ED Fall Risk Assessment (Adult) History of falling in the last 3 months, db including since admission No falls in past 3 months (0 pts) Confusion or Disorientation No (0 pts) Intoxicated or Sedated No (0 pts) Impaired Gait No (0 pts) Mobility Assist Device Used No (0 pt) Altered Elimination No (0 pt) Score/Fall Risk Level 0 - 2 = Low Risk Oriented to surroundings, Maintained a safe environment. Abuse screen: Denies threats or abuse. Denies injuries from another. Nutritional screening: On. Nutritional screening: No deficits noted. Tuberculosis screening: No symptoms or risk factors identified. Tuberculosis screening: No symptoms or risk factors identified. Assessment: 18:10 Reassessment: COMPLAINS OF RECTAL BLEEDING. HX OF RECTAL BLEEDING AND TRANSFUSIONS. db Pain: Complains of pain in abdomen. Neuro: Level of Consciousness is awake, alert, obeys commands, Oriented to person, place, time, situation, Speech is normal. Respiratory: Airway is patent Respiratory effort is even, unlabored, Respiratory pattern is regular, symmetrical. GI: Abdomen is non-distended, Bowel sounds present X 4 quads. Abd is soft. 18:43 Reassessment: Patient appears in no apparent distress at this time. Patient and/or db family updated on plan of care and expected duration. Pain level reassessed. Patient is alert, oriented x 3, equal unlabored respirations, skin warm/dry/pink. General: Appears in no apparent distress. comfortable, Behavior is calm, cooperative. 18:52 Reassessment: Patient appears in no apparent distress at this time. Patient and/or db family updated on plan of care and expected duration. Pain level reassessed. Patient is alert, oriented x 3, equal unlabored respirations, skin warm/dry/pink. PATIENT WITH BLOOD IN STOOL. NOTIFIED DR. MILLIGAN AND SHOWED HIM. 18:54 Reassessment: PATIENT TO CT VIA WHEELCHAIR. db 18:56 General: Appears in no apparent distress. comfortable. db 19:20 General: Appears in no apparent distress. comfortable, Behavior is calm, cooperative, km8 appropriate for age. Pain: Denies pain. Neuro: Level of Consciousness is awake, alert, obeys commands, Oriented to person, place, time, situation. Cardiovascular: Denies chest pain, shortness of breath, Capillary refill < 3 seconds Patient's skin is warm and dry. Respiratory: Airway is patent Respiratory effort is even, unlabored, Respiratory pattern is regular, symmetrical. 19:49 General: report called to NORMAN Walker at [facility]. km8 Vital Signs: 17:38 BP 132 / 73; Pulse 76; Resp 17; Temp 98.2(TE); Pulse Ox 96% on R/A; Weight 87.54 kg; nj1 Height 5 ft. 6 in. ; 17:45 BP 122 / 73; Pulse 73; Resp 18; Pulse Ox 99% on R/A; db 18:30 BP 140 / 73; Pulse 66; Resp 18; Pulse Ox 100% on R/A; db 19:31 BP 121 / 85; Pulse 68; Resp 18; Pulse Ox 100% on R/A; km8 20:00 BP 131 / 65; Pulse 70; Resp 16; Pulse Ox 100% on R/A; km8 17:38 Body Mass Index 31.15 (87.54 kg, 167.64 cm) nj1 Vitals: 18:42 Cardiac Rhythm Assessment Regular Sinus rhythm. db ED Course: 17:33 Patient arrived in ED. rg4 17:43 Meño Milligan MD is Attending Physician. cira 17:47 Triage completed. nj1 17:48 Arm band placed on. nj1 17:55 Aarti Darby, NORMAN is Primary Nurse. db 18:02 Initial lab(s) drawn, by wv, sent to lab. Inserted saline lock: 20 gauge in left em1 forearm, using aseptic technique. Blood collected. 18:27 EKG done, by ED staff, reviewed by Meño Milligan MD. 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 db 18:39 XRAY Chest (1 view) In Process Unspecified. EDMS 18:42 Patient has correct armband on for positive identification. Bed in low position. Call db light in reach. Side rails up X2. Client placed on continuous cardiac and pulse oximetry monitoring. NIBP monitoring applied. Warm blanket given. 18:49 Flor Connolly MD is Hospitalizing Provider. cira 18:55 Initiated transfer with [facility] at [facility]. rv1 19:02 CT Abd/Pelvis - IV Contrast Only In Process Unspecified. EDMS 19:[address] Guillory to [facility] Rm 1546. rv1 19:49 Provided Education on: transfer process. km8 20:21 Patient transferred, IV remains in place. km8 Administered Medications: 18:00 Drug: NS 0.9% IV 1000 ml IV at 1 bolus Per protocol; 1000 mL bolus Route: IV; Rate: 1 db bolus; Site: left forearm; 20:21 Follow up: IV Status: Completed infusion; IV Intake: 1000ml km8 18:05 Drug: Rocephin IV 1 grams IV at per protocol once; Given slow IV push per pharmacy db instructions Route: IV; Rate: per protocol; Site: left forearm; 18:30 Follow up: Response: No adverse reaction; IV Status: Completed infusion; IV Intake: 50mldb 18:30 Drug: metroNIDAZOLE IVPB 500 mg 100 ml IVPB at 200 ml/hr once over 30 mins Volume: 100 db ml; Route: IVPB; Rate: 200 ml/hr; Infused Over: 30 mins; Site: left forearm; 19:37 Follow up: IV Status: Completed infusion; IV Intake: 200ml km8 19:16 Drug: Pantoprazole IVP 40 mg IVP once Route: IVP; Site: left forearm; km8 19:38 Follow up: Response: No adverse reaction km8 19:17 Drug: Ciprofloxacin IVPB 400 mg 200 ml IVPB once over 60 mins Volume: 200 ml; Route: km8 IVPB; Infused Over: 60 mins; Site: left forearm; 20:22 Follow up: IV Status: Infusion continued upon transfer km8 Medication: 19:50 VIS not applicable for this client. km8 Intake: 18:30 IV: 50ml; Total: 50ml. db 19:37 IV: 200ml; Total: 250ml. km8 20:21 IV: 1000ml; Total: 1250ml. km8 Outcome: 18:51 Decision to Hospitalize by Provider. cira 18:55 ER care complete, transfer ordered by . cira 20:21 Transferred by ground EMS to [facility], Transfer form completed. km8 20:21 Condition: stable 20:21 Discharge instructions given to patient, significant other, Instructed on the need for transfer, Demonstrated understanding of instructions, 20:22 Patient left the ED. km8 Signatures: Dispatcher [employer] EDMeño Root MD MD cha Martinez, Eric em1 Agnes Leonard rg4 Aarti Darby, RN RN db Gwen Song rv1 Shikha Suarez, RN RN nj1 Vicky Woodard RN RN km8 Corrections: (The following items were deleted from the chart) 18:56 18:52 Reassessment: PATIENT WITH BLOOD IN STOOL. NOTIFIED DR. MILLIGAN AND SHOWED HIM. db db 18:59 18:30 Ciprofloxacin IVPB 400 mg 200 ml IVPB in left forearm over 60 mins db db
--- NOTE | 2023-08-28 18:51 | EDPHYS ---
Physician Documentation [facility] Name: Toshia Armenta Age: 68 yrs Sex: Female : 1955 Arrival Date: 08/28/2023 Time: 17:32 Bed 15 Private MD: IVELISSE Physician Meño Carrasco HPI: 08/28 18:41 This 68 yrs old Black Female presents to ER via Ambulatory with complaints of Abdominal cira Pain. 18:41 The patient presents with abdominal pain in the lower abdomen. Onset: The cira symptoms/episode began/occurred today, yesterday. The patient presents to the emergency department with rectal bleeding, bright red blood with bowel movement, in toilet bowl. Onset: The symptoms/episode began/occurred today, yesterday. Abdominal pain: none is appreciated. Modifying factors: The symptoms are alleviated by nothing, the symptoms are aggravated by nothing. Associated signs and symptoms: The patient has no apparent associated signs or symptoms. The symptoms do not radiate. Associated signs and symptoms: none. Modifying factors: The symptoms are alleviated by nothing, the symptoms are aggravated by movement. Historical: - Allergies: 17:47 PENICILLINS; nj1 17:47 Sulfa (Sulfonamide Antibiotics); nj1 - PMHx: 17:47 Diverticulitis; Hypertension; nerve pain; Anemia; Hypercholesterolemia; Coronary nj1 atherosclerosis; - Immunization history:: Client reports receiving the 2nd dose of the Covid vaccine. - Social history:: Smoking status: Patient reports the use of cigarette tobacco products, smokes one-half pack cigarettes per day. - Family history:: not pertinent. ROS: 18:41 Constitutional: Negative for fever, chills, and weight loss, Eyes: Negative for injury, cira pain, redness, and discharge, ENT: Negative for injury, pain, and discharge, Neck: Negative for injury, pain, and swelling, Cardiovascular: Negative for chest pain, palpitations, and edema, Respiratory: Negative for shortness of breath, cough, wheezing, and pleuritic chest pain, Back: Negative for injury and pain, : Negative for injury, bleeding, discharge, and swelling, MS/Extremity: Negative for injury and deformity, Skin: Negative for injury, rash, and discoloration, Neuro: Negative for headache, weakness, numbness, tingling, and seizure, Psych: Negative for depression, anxiety, suicide ideation, homicidal ideation, and hallucinations, Allergy/Immunology: Negative for hives, rash, and allergies, Endocrine: Negative for neck swelling, polydipsia, polyuria, polyphagia, and marked weight changes, 18:41 Abdomen/GI: Positive for rectal bleeding, of the left lower quadrant, Exam: 18:41 Constitutional: This is a well developed, well nourished patient who is awake, alert, cira and in no acute distress. Head/Face: Normocephalic, atraumatic. Eyes: Pupils equal round and reactive to light, extra-ocular motions intact. Lids and lashes normal. Conjunctiva and sclera are non-icteric and not injected. Cornea within normal limits. Periorbital areas with no swelling, redness, or edema. ENT: Nares patent. No nasal discharge, no septal abnormalities noted. Tympanic membranes are normal and external auditory canals are clear. Oropharynx with no redness, swelling, or masses, exudates, or evidence of obstruction, uvula midline. Mucous membranes moist. Neck: Trachea midline, no thyromegaly or masses palpated, and no cervical lymphadenopathy. Supple, full range of motion without nuchal rigidity, or vertebral point tenderness. No Meningismus. Chest/axilla: Normal chest wall appearance and motion. Nontender with no deformity. No lesions are appreciated. Cardiovascular: Regular rate and rhythm with a normal S1 and S2. No gallops, murmurs, or rubs. Normal PMI, no JVD. No pulse deficits. Respiratory: Lungs have equal breath sounds bilaterally, clear to auscultation and percussion. No rales, rhonchi or wheezes noted. No increased work of breathing, no retractions or nasal flaring. Back: No spinal tenderness. No costovertebral tenderness. Full range of motion. Female : Normal external genitalia. Skin: Warm, dry with normal turgor. Normal color with no rashes, no lesions, and no evidence of cellulitis. MS/ Extremity: Pulses equal, no cyanosis. Neurovascular intact. Full, normal range of motion. Neuro: Awake and alert, GCS 15, oriented to person, place, time, and situation. Cranial nerves II-XII grossly intact. Motor strength 5/5 in all extremities. Sensory grossly intact. Cerebellar exam normal. Normal gait. Psych: Awake, alert, with orientation to person, place and time. Behavior, mood, and affect are within normal limits. 18:41 Abdomen/GI: Inspection: distension, Bowel sounds: normal, active, Palpation: abdomen is soft and non-tender, in all quadrants, Rectal exam: rectal tone normal, red, caro, no gross bleeding, hemorrhoid(s), are not appreciated, mass, is not appreciated, swelling, is not appreciated, tenderness, is not appreciated, fecal impaction, is not appreciated, the exam is chaperoned by the nurse, Liver: no appreciated palpable abnormalities, Hernia: not appreciated, 18:56 ECG was reviewed by the Attending Physician. [facility] Vital Signs: 17:38 BP 132 / 73; Pulse 76; Resp 17; Temp 98.2(TE); Pulse Ox 96% on R/A; Weight 87.54 kg; nj1 Height 5 ft. 6 in. ; 17:45 BP 122 / 73; Pulse 73; Resp 18; Pulse Ox 99% on R/A; db 18:30 BP 140 / 73; Pulse 66; Resp 18; Pulse Ox 100% on R/A; db 19:31 BP 121 / 85; Pulse 68; Resp 18; Pulse Ox 100% on R/A; km8 20:00 BP 131 / 65; Pulse 70; Resp 16; Pulse Ox 100% on R/A; km8 17:38 Body Mass Index 31.15 (87.54 kg, 167.64 cm) [facility] MDM: 17:44 Patient medically screened. [facility] 18:45 Differential diagnosis: diverticulitis, hemorrhoids, hemorrhagic shock, varices, cira diverticulitis, GI Bleed, non-specific abd pain, pancreatitis, Ureterolithiasis, urinary tract infection. Data reviewed: vital signs, nurses notes, lab test result(s), EKG, radiologic studies, CT scan, plain films. Consideration of Admission/Observation Escalation of care including admission/observation considered. I considered the following discharge prescriptions or medication management in the emergency department Medications were administered in the Emergency Department. See MAR. Independent interpretation of the following test(s) in the Emergency Department EKG: See my EKG interpretation above. Test considered but Not performed: Ultrasound no abd usg. Historians other than the Patient: Spouse/Significant Other: well informed. Care significantly affected by the following chronic conditions: Hypertension, Obesity, anemia, lower gi bleed, cad. Counseling: I had a detailed discussion with the patient and/or guardian regarding the historical points, exam findings, and any diagnostic results supporting the discharge/admit diagnosis, lab results, radiology results, the need to transfer to another facility, for higher level of care, [facility] does not immediately have the required specialist. 08/28 17:44 Order name: Basic Metabolic Panel; Complete Time: 18:47 [facility] 08/28 17:44 Order name: CBC with Diff; Complete Time: 18:47 [facility] 08/28 17:44 Order name: LFT's; Complete Time: 18:47 [facility] 08/28 17:44 Order name: Magnesium; Complete Time: 18:47 [facility] 08/28 17:44 Order name: NT PRO-BNP; Complete Time: 18:47 [facility] 08/28 17:44 Order name: PT-INR; Complete Time: 18:47 [facility] 08/28 17:44 Order name: Troponin HS; Complete Time: 18:47 [facility] 08/28 17:44 Order name: Lipase; Complete Time: 18:47 [facility] 08/28 17:47 Order name: Type And Screen [facility] 08/28 19:20 Order name: Antibody Identification EDAK 08/28 17:44 Order name: XRAY Chest (1 view) [facility] 08/28 17:44 Order name: CT Abd/Pelvis - IV Contrast Only [facility] 08/28 17:44 Order name: EKG; Complete Time: 17:45 [facility] 08/28 17:44 Order name: Cardiac monitoring; Complete Time: 18:26 [facility] 08/28 17:44 Order name: EKG - Nurse/Tech; Complete Time: 18:41 [facility] 08/28 17:44 Order name: IV Saline Lock; Complete Time: 18:02 [facility] 08/28 17:44 Order name: Labs collected and sent; Complete Time: 18:02 [facility] 08/28 17:44 Order name: O2 Per Protocol; Complete Time: 18:26 [facility] 08/28 17:44 Order name: O2 Sat Monitoring; Complete Time: 18:26 [facility] 08/28 18:49 Order name: IV Saline Lock - Large Bore; Complete Time: 19:07 [facility] 08/28 18:56 Order name: Misc. Order: bed rest; Complete Time: 19:07 [facility] EC:56 Rate is 65 beats/min. Rhythm is regular. QRS Drury is Normal. SC interval is normal. QRS cira interval is normal. QT interval is normal. No Q waves. T waves are Normal. No ST changes noted. Clinical impression: Normal ECG and No evidence of ischemia. Interpreted by me. Reviewed by me. Administered Medications: 18:00 Drug: NS 0.9% IV 1000 ml IV at 1 bolus Per protocol; 1000 mL bolus Route: IV; Rate: 1 db bolus; Site: left forearm; 20:21 Follow up: IV Status: Completed infusion; IV Intake: 1000ml [facility] 18:05 Drug: Rocephin IV 1 grams IV at per protocol once; Given slow IV push per pharmacy db instructions Route: IV; Rate: per protocol; Site: left forearm; 18:30 Follow up: Response: No adverse reaction; IV Status: Completed infusion; IV Intake: 50mldb 18:30 Drug: metroNIDAZOLE IVPB 500 mg 100 ml IVPB at 200 ml/hr once over 30 mins Volume: 100 db ml; Route: IVPB; Rate: 200 ml/hr; Infused Over: 30 mins; Site: left forearm; 19:37 Follow up: IV Status: Completed infusion; IV Intake: 200ml [facility] 19:16 Drug: Pantoprazole IVP 40 mg IVP once Route: IVP; Site: left forearm; 8 19:38 Follow up: Response: No adverse reaction [facility] 19:17 Drug: Ciprofloxacin IVPB 400 mg 200 ml IVPB once over 60 mins Volume: 200 ml; Route: km8 IVPB; Infused Over: 60 mins; Site: left forearm; 20:22 Follow up: IV Status: Infusion continued upon transfer km8 Disposition Summary: 08/28/23 18:55 Transfer Ordered Notes: Transfer Location: [facility] cira Reason: Higher level of care cira Condition: Stable(08/28/23 18:55) cira Problem: new(08/28/23 18:55) cira Symptoms: have improved(08/28/23 18:55) cira Accepting Physician: to [facility](08/28/23 20:22) km8 Diagnosis - Abdominal tenderness cira - Diverticulosis of large intestine without perforation or abscess with cira bleeding(08/28/23 18:55) - Anemia, unspecified cira - alf (current) use of anticoagulants - aspirin cira Forms: - Medication Reconciliation Form cira - SBAR form cira Signatures: Dispatcher [employer] Meño Griffiths MD MD cha Benton, Danielle, RN RN db Shikha Suarez, RN RN nj1 Vicky Woodard RN RN km8 Corrections: (The following items were deleted from the chart) 18:53 18:51 Observation cira cira 18:53 18:51 Flor Connolly cira cira 18:53 18:51 Telemetry/MedSurg (observation) cira cira 18:53 18:51 Stable cira cira 18:53 18:51 new cira cira 18:53 18:51 have improved cira cira 18:53 18:51 Standard cira cira 18:53 18:51 cira cira 18:53 18:51 GI Bleed/ Gastrointestinal hemorrhage, unspecified - lower cira cira 18:53 18:51 Diverticulosis of large intestine without perforation or abscess with bleeding drew 20:22 18:55 to [facility] cira km8
[2023-08-28] MEDS ORDERED: PANTOPRAZOLE 40 MG INJ ONE (19:22)
--- NOTE | 2023-08-28 19:24 | RAD REPORT ---
EXAM DESCRIPTION: CT - Abdomen Pelvis W Contrast - 08/28/2023 7:01 pm CLINICAL HISTORY: Abdominal pain COMPARISON: November 2022 and 2018 TECHNIQUE: Computed axial tomography of the abdomen pelvis was obtained. 100 cc Isovue-300 was admin istered intravenously. Oral contrast was not requested which limits evaluation of bowel and appendix All CT scans are performed using dose optimization technique as appropriate and may include automated exposure control or mA/KV adjustment according to patient size. FINDINGS: The wall of the distal stomach appears thickened. Additionally, there is prominent soft ti ssue gastric cardia 3 centimeter low to intermediate density splenic mass unchanged. Liver, pancreas, adrenals a right kidney unremarkable. 2 millimeter calculus left kidney. No hydronephrosis Postsurgical changes involve the colon. Diverticula stem from the colon without evidence of diverticu litis. Normal appendix. Hysterectomy. No adnexal mass. Small hiatal hernia Spondylosis lumbar spine resulting in spinal stenosis IMPRESSION: Wall the distal stomach appears thickened. Additionally there is prominent soft tissue g astric cardia. Both of these may be secondary to incomplete distention. Pathology such as inflammatio n or mass can also result in this appearance. Direct visualization recommended 2 millimeter nonobstructing left renal calculus
--- NOTE | 2023-08-28 19:25 | RAD REPORT ---
EXAM DESCRIPTION: Kristnie Single View08/28/2023 6:38 pm CLINICAL HISTORY: Abdominal pain COMPARISON: 2019 FINDINGS: The lungs appear clear of acute infiltrate. The heart is mildly enlarged IMPRESSION: No acute abnormalities displayed
[2023-08-28 20:45] VITALS: TEMP 98.2
[2023-08-28 20:52] VITALS: O2SAT 100
[2023-08-28 20:54] VITALS: BP 131/65
--- NOTE | 2023-09-01 16:57 | EKG ---
Test Date: 2023-08-28 Test Time: 18:35:09 Data Integration Analyst: TOMMY MEASUREMENT RESULTS: Intervals: Rate: 65 RI: 166 QRSD: 74 QT: 436 QTc: 453 Everetts: P: 54 RI: 166 QRS: -25 T: 38 INTERPRETIVE STATEMENTS: Normal sinus rhythm Normal ECG Compared to ECG 11/16/2022 08:09:08 Left-axis deviation no longer present Myocardial infarct finding no longer present Electronically Signed On 09-01-23 16:53:22 REIMBURSEMENT ANALYST by Reji Tucker
== END 2023-08-28 20:22 | disposition short-term general hospital (02) ==
LOC: ER 17:32
DX: K57.31 Diverticulosis of large intestine without perforation or abscess with bleeding (principal); D64.9 Anemia, unspecified; Z79.01 Long term (current) use of anticoagulants
CPT/HCPCS: 96365; 96367; 96368; 93005; 85025; 80048; 36415; 86900; 83735; 86850; 85610; 86870; 86901; 80076; 84484; 83690; 83880; 74177; 71045; 96375; 99285; Q9967; C9113; J0744; J7030; J0696

== ENCOUNTER 2023-09-12 16:04 | Inpatient (IN) | payer OTHER ==
[2023-09-12] MEDS ORDERED: PANTOPRAZOLE 40 MG INJ ONE ×2 (18:20→22:07)
[2023-09-12] MEDS ORDERED: ONDANSETRON 4 MG/2 ML VIAL ONE (18:20)
[2023-09-12] MEDS ORDERED: NA CHLORIDE 0.9% 1,000 ML ONE (18:21)
[2023-09-12 18:24] LABS: Absolute Lymphocytes (CBC) 1.9 K/uL (0.7-4.9); Hematocrit 30.5 % (36.0-45.0); Lymphocytes % 30.4 % (15.3-44.8); MCV 100.8 fL (80-100); MPV 8.6 fL (7.6-11.3); Platelets 164 thou/uL (152-406); RBC Red Blood Cell Count 3.03 M/uL (3.86-4.86)
[2023-09-12 18:30] LABS: Protime INR 1.3
[2023-09-12 18:44] LABS: Albumin 3.6 g/dL (3.4-5.0); Bilirubin Total 0.7 mg/dL (0.2-1.0); Potassium 3.3 mEq/L (3.5-5.1)
--- NOTE | 2023-09-12 20:28 | RAD REPORT ---
EXAM DESCRIPTION: CTAbdomen Pelvis W Contrast - 09/12/2023 8:14 pm CLINICAL HISTORY: Abdominal pain. gi bleed COMPARISON: Abdomen Pelvis W Contrast dated 08/28/2023; Abdomen Pelvis W Contrast dated 3; Abdomen Pelvis W Contrast dated 06/12/2019; Abdomen Pelvis W Contrast dated 04/18/2016 TECHNIQUE: Biphasic CT imaging of the abdomen and pelvis was performed with 100 ml non-ionic IV cont rast. All CT scans are performed using dose optimization technique as appropriate and may include automated exposure control or mA/KV adjustment according to patient size. FINDINGS: The lung bases are clear.Small hiatal hernia. The liver, spleen, pancreas, adrenal glands and kidneys are within normal limits. Thickening is seen involving the duodenal C-loop and distal stomach mucosa. The duodenal wall measure s up to 17 mm in maximum thickness. No bowel obstruction, free air, free fluid or abscess. Prominent colonic diverticulosis coli. No dive rticulitis. Postsurgical changes are present about the sigmoid. The appendix is normal. No evidence of significant lymphadenopathy. Small fat containing ventral hernia. No suspicious bony findings. IMPRESSION: Thickening of the distal stomach mucosa and duodenal C-loop measuring up to 17 mm. This suggests inflammation or ulceration in this region. Followup direct visualization with endoscopy woul d be advised. Prominent diverticulosis coli involving majority of the colon without diverticulitis.
[2023-09-12 20:35] LABS: Specific Gravity 1.023 (1.005-1.030); Urine Bacteria <20 /HPF (<20); Urine Bilirubin NEGATIVE (Negative); Urine Blood Negative (Negative); Urine Clarity Extremely Turbid (Clear); Urine Color Yellow (Yellow); Urine Glucose NEGATIVE (Negative); Urine Mucus Slight /HPF (None Seen); Urine Protein 1+ (Negative); Urine RBC <5 /HPF (None Seen); Urine Urobilinogen 3+ (Normal); Urine pH 7.5 (5.0-7.0)
--- NOTE | 2023-09-12 21:45 | ER ---
Nurse's Notes [facility] Name: Toshia Armenta Age: 68 yrs Sex: Female : 1955 Arrival Date: 09/12/2023 Time: 16:04 Bed 2 Private MD: Diagnosis: Diverticulosis of large intestine without perforation or abscess with bleeding;Anemia, unspecified Presentation: 09/12 16:29 Chief complaint: Patient states: 3 episodes of dark tarry stools onset yesterday. Pt cm10 states that she has a history of GI bleeds. Pt states that she does not have any pain, that she just feels bloated. Pt reports taking a baby aspirin every day. Coronavirus screen: Vaccine status: Patient reports receiving the 2nd dose of the covid vaccine. Client denies travel out of the [place] in the last 14 days. Ebola Screen: Patient denies travel to an Ebola-affected area in the 21 days before illness onset. No symptoms or risks identified at this time. Initial Sepsis Screen: Does the patient meet any 2 criteria? No. Patient's initial sepsis screen is negative. Does the patient have a suspected source of infection? No. Patient's initial sepsis screen is negative. Risk Assessment: Do you want to hurt yourself or someone else? Patient reports no desire to harm self or others. Onset of symptoms was September 12, 2023. 16:29 Method Of Arrival: Wheelchair cm10 16:29 Acuity: CHARLI 3 cm10 Historical: - Allergies: 16:31 PENICILLINS; cm10 16:31 Sulfa (Sulfonamide Antibiotics); cm10 - PMHx: 16:31 Anemia; coronary atherosclerosis; Diverticulitis; Hypercholesterolemia; Hypertension; cm10 nerve pain; - Immunization history:: Adult Immunizations up to date. - Social history:: Smoking status: Patient reports the use of cigarette tobacco products, smokes one-half pack cigarettes per day. Screenin:30 [facility] ED Fall Risk Assessment (Adult) History of falling in the last 3 months, kd3 including since admission No falls in past 3 months (0 pts) Confusion or Disorientation No (0 pts) Intoxicated or Sedated No (0 pts) Impaired Gait No (0 pts) Mobility Assist Device Used No (0 pt) Altered Elimination No (0 pt) Score/Fall Risk Level 0 - 2 = Low Risk Oriented to surroundings, Maintained a safe environment. Abuse screen: Denies threats or abuse. Denies injuries from another. Nutritional screening: No deficits noted. Tuberculosis screening: No symptoms or risk factors identified. Assessment: 18:29 General: Appears in no apparent distress. Behavior is calm, cooperative. Pain: Denies kd3 pain. Neuro: Level of Consciousness is awake, alert, obeys commands, Oriented to person, place, time, situation. Cardiovascular: Patient's skin is warm and dry. Respiratory: Airway is patent Trachea midline Respiratory effort is even, unlabored, Respiratory pattern is regular, symmetrical. 18:44 General: Pt finished oral contrast. CT notified. . kd3 19:52 Reassessment: Patient appears in no apparent distress at this time. Patient and/or jb4 family updated on plan of care and expected duration. Pain level reassessed. Patient is alert, oriented x 3, equal unlabored respirations, skin warm/dry/pink. 21:06 Reassessment: Patient appears in no apparent distress at this time. No changes from jw7 previously documented assessment. Patient and/or family updated on plan of care and expected duration. Pain level reassessed. Patient is alert, oriented x 3, equal unlabored respirations, skin warm/dry/pink. 22:00 Reassessment: Patient appears in no apparent distress at this time. Patient and/or jb4 family updated on plan of care and expected duration. Pain level reassessed. Patient is alert, oriented x 3, equal unlabored respirations, skin warm/dry/pink. 23:00 Reassessment: Patient appears in no apparent distress at this time. Patient and/or jb4 family updated on plan of care and expected duration. Pain level reassessed. Patient is alert, oriented x 3, equal unlabored respirations, skin warm/dry/pink. Vital Signs: 16:29 BP 123 / 61; Pulse 68; Resp 18; Temp 97.3; Pulse Ox 98% ; Weight 86.18 kg; Height 5 ft. cm10 6 in. ; Pain 0/10; 17:41 BP 119 / 77; Pulse 61; Resp 17; Pulse Ox 99% on R/A; kd3 18:29 BP 125 / 60; Pulse 62; Resp 17; Pulse Ox 99% on R/A; kd3 19:52 BP 157 / 76; Pulse 65; Resp 16; Pulse Ox 97% on R/A; jb4 21:00 BP 149 / 74; Pulse 63; Resp 18 S; Pulse Ox 100% on R/A; jw7 23:00 BP 135 / 65; Pulse 59; Resp 16; Pulse Ox 100% ; jb4 16:29 Body Mass Index 30.67 (86.18 kg, 167.64 cm) cm10 16:29 Pain Scale: Adult cm10 ED Course: 16:10 Patient arrived in ED. mg5 16:12 Meño Delvalle PA is PHCP. cp 16:12 Shawn Campoverde MD is Attending Physician. cp 16:31 Triage completed. cm10 16:32 Arm band placed on Patient placed in an exam room, on a stretcher. cm10 17:18 Mabel Recinos, NORMAN is Primary Nurse. kd3 17:41 Inserted saline lock: 20 gauge in right forearm, using aseptic technique. Blood kd3 collected. 18:30 Patient has correct armband on for positive identification. Provided Education on: kd3 Blood Transfusion, medications. 20:15 Abdomen In Process Unspecified. EDMS 21:20 CDIFF Sent. jw7 21:20 Ova And Parasites Sent. jw7 21:20 Rotavirus Antigen Sent. jw7 21:20 Stool Culture Sent. jw7 21:44 Selwyn Pennington MD is Hospitalizing Provider. cp 22:11 Lactate w/ 2H reflex if indic. Sent. jw7 22:12 Ova And Parasites Sent. jw7 22:12 Rotavirus Antigen Sent. jw7 22:12 Stool Culture Sent. jw7 09/13 00:02 No provider procedures requiring assistance completed. Patient admitted, IV remains in jb4 place. Administered Medications: 09/12 18:13 Drug: NS 0.9% IV 500 ml IV at 100 ml/hr continuous Route: IV; Rate: 100 ml/hr; Site: kd3 right forearm; 18:14 Drug: Ondansetron IVP 4 mg IVP once; over 2 minutes Route: IVP; Site: right forearm; kd3 18:14 Drug: Pantoprazole IVP 40 mg IVP once Route: IVP; Site: right forearm; kd3 18:14 Drug: NS 0.9% IV 500 ml IV at bolus once Route: IV; Rate: bolus; Site: right forearm; kd3 22:56 Drug: metroNIDAZOLE IVPB 500 mg 100 ml IVPB once over 30 mins Volume: 100 ml; Route: jw7 IVPB; Infused Over: 30 mins; Site: left antecubital; 22:57 Drug: Potassium PO Effervescent Tablet 50 mEq PO once; dissolve in 4 ounces of water or jw7 juice Route: PO; 22:57 Drug: Pantoprazole IVP 40 mg IVP once Route: IVP; Site: left antecubital; jw7 22:57 Drug: Pantoprazole IV 8 mg/hr IV at 25 ml/hr continuous; (Standard dilution is 80 mg in jw7 250 mL NS) Route: IV; Rate: 25 ml/hr; Site: right forearm; 23:38 Drug: Magnesium Citrate PO Liquid 300 ml PO once Route: PO; jb4 23:40 Drug: Ciprofloxacin IVPB 400 mg 200 ml IVPB once over 60 mins Volume: 200 ml; Route: jw7 IVPB; Infused Over: 60 mins; Site: left antecubital; Medication: 18:30 VIS not applicable for this client. kd3 Outcome: 21:45 Decision to Hospitalize by Provider. bubba 09/13 00:02 Admitted to Tele accompanied by nurse, via stretcher, room 410, jb4 Condition: stable Discharge instructions given to patient, family, Instructed on the need for admit, Demonstrated understanding of instructions, 00:03 Patient left the ED. jb4 Signatures: Dispatcher [employer] EDMS Meño Delvalle PA PA cp Bryson, James RN RN jb4 Mabel Recinos RN RN kd3 Odalys Garcia RN RN jw7 Sarah Shaikh RN RN [email or web address] Lexy Perales mg5 Corrections: (The following items were deleted from the chart) 09/12 16:32 16:29 Chief complaint: Patient states: 3 episodes of dark tarry stools onset yesterday. cm10 Pt states that she has a history of GI bleeds. Pt states that she does not have any pain, that she just feels bloated. cm10
--- NOTE | 2023-09-12 21:45 | EDPHYS ---
Physician Documentation [facility] Name: Toshia Armenta Age: 68 yrs Sex: Female : 1955 Arrival Date: 09/12/2023 Time: 16:04 Bed 2 Private MD: ED Physician Shawn Campoverde HPI: 09/12 17:40 This 68 yrs old Black Female presents to ER via Wheelchair with complaints of GI cp Bleeding. 17:40 The patient presents to the emergency department with rectal bleeding, dark red blood cp with bowel movement with multiple such episodes. Onset: The symptoms/episode began/occurred yesterday, and became worse today. Abdominal pain: none is appreciated. Associated signs and symptoms: Pertinent positives: nausea, Pertinent negatives: constipation, fever, shortness of breath, syncope. Severity of symptoms: in the emergency department the symptoms are unchanged despite home interventions. The patient has experienced a previous episode, caused patient to be hospitalized and to receive blood transfusion. Historical: - Allergies: 16:31 PENICILLINS; cm10 16:31 Sulfa (Sulfonamide Antibiotics); cm10 - PMHx: 16:31 Anemia; coronary atherosclerosis; Diverticulitis; Hypercholesterolemia; Hypertension; cm10 nerve pain; - Immunization history:: Adult Immunizations up to date. - Social history:: Smoking status: Patient reports the use of cigarette tobacco products, smokes one-half pack cigarettes per day. ROS: 17:45 Constitutional: Negative for body aches, chills, fever, poor PO intake, cp 17:45 Eyes: Negative for injury, pain, redness, and discharge, cp 17:45 ENT: Negative for drainage from ear(s), ear pain, sore throat, difficulty swallowing, difficulty handling secretions, 17:45 Cardiovascular: Negative for chest pain, edema, palpitations, 17:45 Respiratory: Negative for cough, shortness of breath, wheezing, 17:45 Abdomen/GI: Positive for rectal bleeding, dark brown colored stool, Negative for abdominal pain, diarrhea, constipation, 17:45 Neuro: Negative for altered mental status, dizziness, headache, syncope, weakness, 17:45 All other systems are negative, Exam: 17:50 Constitutional: The patient appears in no acute distress, alert, awake, cp non-diaphoretic, non-toxic, well developed, well nourished, 17:50 Head/Face: Normocephalic, atraumatic. cp 17:50 Eyes: Periorbital structures: appear normal, Conjunctiva: normal, no exudate, no injection, Sclera: no appreciated abnormality, Lids and lashes: appear normal, bilaterally, 17:50 ENT: External ear(s): are unremarkable, Nose: is normal, Mouth: Lips: moist, Oral mucosa: pink and intact, moist, Posterior pharynx: is normal, airway is patent, no erythema, no exudate, 17:50 Chest/axilla: Inspection: normal, Palpation: is normal, no crepitus, no tenderness, 17:50 Cardiovascular: Rate: normal, Rhythm: regular, Edema: is not appreciated, JVD: is not appreciated, 17:50 Respiratory: the patient does not display signs of respiratory distress, Respirations: normal, no use of accessory muscles, no retractions, labored breathing, is not present, Breath sounds: are clear throughout, no decreased breath sounds, no stridor, no wheezing, 17:50 Abdomen/GI: Inspection: abdomen appears normal, Bowel sounds: active, all quadrants, Palpation: abdomen is soft and non-tender, in all quadrants, 17:50 Back: pain, is absent, ROM is normal, 17:50 Neuro: Orientation: to person, place \T\ time. Mentation: is normal, Motor: moves all fours, strength is normal, Sensation: is normal, Vital Signs: 16:29 BP 123 / 61; Pulse 68; Resp 18; Temp 97.3; Pulse Ox 98% ; Weight 86.18 kg; Height 5 ft. cm10 6 in. ; Pain 0/10; 17:41 BP 119 / 77; Pulse 61; Resp 17; Pulse Ox 99% on R/A; kd3 18:29 BP 125 / 60; Pulse 62; Resp 17; Pulse Ox 99% on R/A; kd3 19:52 BP 157 / 76; Pulse 65; Resp 16; Pulse Ox 97% on R/A; jb4 21:00 BP 149 / 74; Pulse 63; Resp 18 S; Pulse Ox 100% on R/A; jw7 23:00 BP 135 / 65; Pulse 59; Resp 16; Pulse Ox 100% ; jb4 16:29 Body Mass Index 30.67 (86.18 kg, 167.64 cm) cm10 16:29 Pain Scale: Adult cm10 MDM: 16:57 Patient medically screened. 21:45 Data reviewed: vital signs, nurses notes, lab test result(s), radiologic studies, CT cp scan. 21:45 ED course: VSS. Stool sample collected and nurse reports it to be bloody. DR Verdin, GI cp consulted. Will admit to services of hospitalist, DR Pennington. DR Verdin wants bowel prep done till 0900, bleeding study done in morning and preparation for upper endoscopy and colonoscopy. 09/12 17:56 Order name: Type and Screen; Complete Time: 21:31 EDMS 09/12 20:48 Interpretation: Reviewed. 09/12 18:21 Order name: Comprehensive Metabolic Panel; Complete Time: 19:14 EDMS 09/12 19:14 Interpretation: Normal except: K 3.3; CL 109; CO2 33; ANION GAP 4.3; GFR 67; AST 10. 09/12 18:21 Order name: Lipase; Complete Time: 19:14 EDMS 09/12 18:21 Order name: CBC with Automated Diff; Complete Time: 19:14 EDMS 09/12 19:14 Interpretation: Normal except: RBC 3.03; HGB 10.4; HCT 30.5; MCV 100.8; RDW 16.7. 09/12 18:21 Order name: Protime (+INR); Complete Time: 19:14 EDMS 09/12 18:21 Order name: PTT, Activated Partial Thromb; Complete Time: 19:14 EDMS 09/12 18:21 Order name: Urinalysis w/ reflexes; Complete Time: 20:47 EDMS 09/12 20:47 Interpretation: Normal except: [facility] Extremely Turbid; UPH 7.5; UPROT 1+; UUROB 3+. 09/12 19:43 Order name: Antibody Identification; Complete Time: 21:31 EDMS 09/12 21:05 Order name: Ova And Parasites 09/12 21:05 Order name: Rotavirus Antigen 09/12 21:05 Order name: Stool Culture 09/12 21:05 Order name: CDIFF 09/12 21:39 Order name: Lactate w/ 2H reflex if indic. 09/12 21:39 Order name: Blood Culture Adult (2) 09/12 22:52 Order name: Urinalysis w/ reflexes EDMS 09/12 22:52 Order name: CBC with Automated Diff EDMS 09/12 22:52 Order name: CBC with Automated Diff EDMS 09/12 22:52 Order name: Comprehensive Metabolic Panel EDMS 09/12 22:52 Order name: Comprehensive Metabolic Panel EDMS 09/12 18:08 Order name: Abdomen ; Complete Time: 20:47 EDMS 09/12 22:52 Order name: CONS Physician Consult EDVA 09/12 17:40 Order name: IV Saline Lock; Complete Time: 17:40 cp 09/12 17:40 Order name: Labs collected and sent; Complete Time: 17:41 cp 09/12 18:14 Order name: Labs - recollect needed: recollect T\T\S / date not completely filled out/ eb sending labels; Complete Time: 18:31 Administered Medications: 18:13 Drug: NS 0.9% IV 500 ml IV at 100 ml/hr continuous Route: IV; Rate: 100 ml/hr; Site: kd3 right forearm; 18:14 Drug: Ondansetron IVP 4 mg IVP once; over 2 minutes Route: IVP; Site: right forearm; kd3 18:14 Drug: Pantoprazole IVP 40 mg IVP once Route: IVP; Site: right forearm; kd3 18:14 Drug: NS 0.9% IV 500 ml IV at bolus once Route: IV; Rate: bolus; Site: right forearm; kd3 22:56 Drug: metroNIDAZOLE IVPB 500 mg 100 ml IVPB once over 30 mins Volume: 100 ml; Route: jw7 IVPB; Infused Over: 30 mins; Site: left antecubital; 22:57 Drug: Potassium PO Effervescent Tablet 50 mEq PO once; dissolve in 4 ounces of water or jw7 juice Route: PO; 22:57 Drug: Pantoprazole IVP 40 mg IVP once Route: IVP; Site: left antecubital; jw7 22:57 Drug: Pantoprazole IV 8 mg/hr IV at 25 ml/hr continuous; (Standard dilution is 80 mg in jw7 250 mL NS) Route: IV; Rate: 25 ml/hr; Site: right forearm; 23:38 Drug: Magnesium Citrate PO Liquid 300 ml PO once Route: PO; jb4 23:40 Drug: Ciprofloxacin IVPB 400 mg 200 ml IVPB once over 60 mins Volume: 200 ml; Route: jw7 IVPB; Infused Over: 60 mins; Site: left antecubital; Disposition: 09/13 19:34 Co-signature as Attending Physician, Shawn Campoverde MD I reviewed the patient's care rt provided by the Advanced Practice Provider and agree with the diagnosis and treatment plan. Disposition Summary: 09/12/23 21:45 Hospitalization Ordered Notes: Hospitalization Status: Inpatient Admission cp Provider: Selwyn Pennington cp Location: Telemetry/MedSurg (Inpatient) cp Condition: Stable cp Problem: new cp Symptoms: have improved cp Bed/Room Type: Standard cp Room Assignment: [id number](09/12/23 23:20) jr12 Diagnosis - Diverticulosis of large intestine without perforation or abscess with bleeding cp - Anemia, unspecified cp Forms: - Medication Reconciliation Form cp - SBAR form cp - Leadership Thank You Letter cp Signatures: Dispatcher [employer] EDMS Meño Delvalle PA PA cp Kevan Godinez, RN RN jb4 Kate Parham Kyli RN RN kd3 Odalys Garcia RN RN jw7 Shawn Campoverde MD MD rt Sarah Shaikh RN RN cm10 Brittney Nix jr12 Corrections: (The following items were deleted from the chart) 09/12 18:52 18:33 CBC+H.LAB.BRZ ordered. EDMS EDMS 18:52 18:33 Urinalysis+U.LAB.BRZ ordered. EDMS EDMS 18:52 18:33 PROTIME (+INR)+COAG.LAB.BRZ ordered. EDMS EDMS 18:52 18:33 PTT, ACTIVATED+COAG.LAB.BRZ ordered. EDMS EDMS 18:53 18:33 COMPREHENSIVE METABOLIC PANEL+C.LAB.BRZ ordered. EDMS EDMS 18:53 18:33 LIPASE+C.LAB.BRZ ordered. EDMS EDMS 18:54 18:33 Abdomen Pelvis W Con+CT.RAD.BRZ ordered. EDMS EDMS 19:16 19:15 This 68 yrs old Black Female presents to ER via Wheelchair with complaints of GI cp Bleeding. cp 23:20 21:45 cp jr12 09/13 11:06 09/12 17:45 Constitutional: Negative for cp cp
[2023-09-12 22:03] LABS: C.diff Antigen/Toxin Ag neg : Tox neg (NEG : NEG)
[2023-09-12] MEDS ORDERED: CIPROFLOXACIN 400mg IV 400 MG/200 ML BAG IV ONE (22:07)
[2023-09-12] MEDS ORDERED: POTASSIUM 25 MEQ EFFERV TAB ONE (22:07)
[2023-09-12] MEDS ORDERED: NA CHLORIDE 0.9% 250 ML ONE (22:07)
[2023-09-12] MEDS ORDERED: METRONIDAZOLE 500mg IVPB 500 MG/100 ML BAG IV ONE (22:07)
[2023-09-12] MEDS ORDERED: MAGNESIUM CITRATE 300 ML BOT ONE (22:34)
[2023-09-12] MEDS ORDERED: ONDANSETRON 4 MG/2 ML VIAL IV PRN (22:47)
--- NOTE | 2023-09-12 22:47 | P.HP ---
Certification for Inpatient Patient admitted to: Inpatient With expected LOS: >2 Midnights Practitioner: I am a practitioner with admitting privileges, knowledge of patient current condition, hospital course, and medical plan of care. Services: Services provided to patient in accordance with Admission requirements found in Title 42 Section 412.3 of the Code of Federal Regulations Patient History Date of Service: 09/12/23 Reason for admission: GI bleeding History of Present Illness: 68 yo AAF with past medical history of hypertension, hyperlipidemia, CAD, on aspirin 81 mg daily , history of GI bleed, previously had upper GI lower GI as well as PillCam., Also had diverticulosis and diverticulitis and subsequent partial colon resection, came into ER with melena. Patient noted to have melena 3 days ago. Patient had multiple episodes today even including in the ER. Denies any abdominal pain. No fever or chills. No sick contacts. While in the ER patient had 3 episodes [id number] with melena. Denies any hematemesis. No nausea or vomiting Patient was assessed in the ER and was admitted for further management of GI bleed. Gastroenterology was consulted who proposing doing EGD and colonoscopy in morning. Allergies Penicillins Allergy (Intermediate, Verified 02/15/20 01:22) Shortness of breath Sulfa (Sulfonamide Antibiotics) Allergy (Verified 02/15/20 01:22) Itching Home medications list reviewed: Yes Home Medications: Losartan/Hydrochlorothiazide [Losartan-Hctz 100-25 mg Tab] 1 each PO DAILY 04/12/16 Celecoxib [Celebrex] 200 mg PO DAILY 02/15/20 Gabapentin 600 mg PO BID 02/15/20 Metoprolol Succinate [Toprol Xl] 50 mg PO DAILY 02/15/20 Albuterol Inhaler [Ventolin Inhaler*] 2 puff IH Q6H PRN #1 hfa.aer.ad 02/19/20 Benzonatate [Tessalon Perle*] 100 mg PO TID PRN #21 cap 02/19/20 predniSONE [Prednisone*] 20 mg PO BID #14 tab 02/19/20 - Past Medical/Surgical History Diabetic: No Past Medical History: Reviewed- Non-Contributory -: HTN -: diverticulitis -: neuropathy Past Surgical History: Reviewed- Non-Contributory -: thyroidectomy -: hysterectomy -: colon resection -: heart cath -: cyst removal from breast (benign) Psychosocial/ Personal History: Patient lives at home with her . - Family History Family History: Reviewed- Non-Contributory - Family History Father -: Lung disease, Cancer Mother -: Heart disease, Lung disease, Stroke Sister -: Hypertension, Diabetes - Social History Smoking Status: Never smoker Alcohol use: Yes CD- Drugs: No Caffeine use: Yes Review of Systems 10-point ROS is otherwise unremarkable General: Weakness Eyes: Unremarkable ENT: Unremarkable Respiratory: Unremarkable Cardiovascular: Unremarkable Gastrointestinal: Abdominal Pain, Melena, Hematochezia Genitourinary: Unremarkable Musculoskeletal: Unremarkable Integumentary: Unremarkable Neurological: Unremarkable Physical Examination - Vital Signs Temperature: 98.8 F Blood Pressure: 148/78 Pulse: 78 Respirations: 18 Pulse Ox (%): 96 - Physical Exam General: Alert, Oriented x3, Mild distress, Obese HEENT: Atraumatic, Normocephalic Neck: Supple, No Thyromegaly Respiratory: Clear to auscultation bilaterally, Normal air movement Cardiovascular: Regular rate/rhythm, Normal S1 S2 Capillary refill: <2 Seconds Gastrointestinal: Soft and benign, Non-distended, W/out hepatosplenomegaly, No tenderness Musculoskeletal: No clubbing, No swelling Integumentary: No rashes, No breakdown Neurological: Normal speech, Normal strength at 5/5 x4 extr, Normal tone, Sensation intact, Cranial nerves 3-12 intact Lymphatics: No axilla or inguinal lymphadenopathy - Studies Laboratory Data (last 24 hrs) 09/12/23 09/12/23 09/12/23 17:50 17:50 17:50 WBC 6.40 Hgb 10.4 L Hct 30.5 L Plt Count 164 PT 14.2 H INR 1.30 APTT 42.8 H Sodium 143 Potassium 3.3 L BUN 12 Creatinine 0.92 Glucose 88 Total Bilirubin 0.7 AST 10 L ALT 13 Alkaline Phosphatase 59 Lipase 24 09/12/23 09/12/23 09/12/23 17:40 17:40 17:40 WBC Cancelled Hgb Cancelled Hct Cancelled Plt Count Cancelled PT Cancelled INR Cancelled APTT Cancelled Sodium Cancelled Potassium Cancelled BUN Cancelled Creatinine Cancelled Glucose Cancelled Total Bilirubin Cancelled AST Cancelled ALT Cancelled Alkaline Phosphatase Cancelled Lipase Cancelled Imagings Data: LINICAL HISTORY: Abdominal pain. gi bleed COMPARISON: Abdomen Pelvis W Contrast dated 08/28/2023; Abdomen Pelvis W Contrast dated 11/16/2022; Abdomen Pelvis W Contrast dated 06/12/2019; Abdomen Pelvis W Contrast dated 04/18/2016 TECHNIQUE: Biphasic CT imaging of the abdomen and pelvis was performed with 100 ml non-ionic IV contrast. All CT scans are performed using dose optimization technique as appropriate and may include automated exposure control or mA/KV adjustment according to patient size. FINDINGS: The lung bases are clear.Small hiatal hernia. The liver, spleen, pancreas, adrenal glands and kidneys are within normal limits. Thickening is seen involving the duodenal C-loop and distal stomach mucosa. The duodenal wall measures up to 17 mm in maximum thickness. No bowel obstruction, free air, free fluid or abscess. Prominent colonic diverticulosis coli. No diverticulitis. Postsurgical changes are present about the sigmoid. The appendix is normal. No evidence of significant lymphadenopathy. Small fat containing ventral hernia. No suspicious bony findings. IMPRESSION: Thickening of the distal stomach mucosa and duodenal C-loop measuring up to 17 mm. This suggests inflammation or ulceration in this region. Followup direct visualization with endoscopy would be advised. Prominent diverticulosis coli involving majority of the colon without diverticulitis. Assessment and Plan - Problems (Diagnosis) (1) Gastrointestinal hemorrhage Onset Date: 05/18/15 Current Visit: No Status: Acute Plan: GI bleed CT findings noted Thickening of lower stomach and duodenal area possibly related to peptic ulcer disease Will start on Protonix drip Gastroenterology consulted Proposed to do an EGD: Tomorrow N.p.o. for now (2) Diverticulosis Current Visit: Yes Status: Chronic Plan: History of diverticulosis History of partial colon resection CT findings noted consistent with multiple diverticulosis but no signs of diverticulitis Concern for GI bleed and possibility of overt diverticulitis will start on IV antibiotics Will stop antibiotics once stable Diet modification to be a advised at discharge (3) Anemia Onset Date: 04/18/16 Current Visit: No Status: Acute Plan: Acute blood loss anemia Monitor H&H closely Transfuse as needed (4) Hypertension Current Visit: Yes Status: Acute Plan: Monitor closely on telemetry Continue home medications and titrate as needed hydralazine as needed Discharge Plan: Home Plan to discharge in: Greater than 2 days - Advance Directives Does patient have a Living Will: No Does patient have a Durable POA for Healthcare: No - Code Status/Comfort Care Code Status: Full Code Time Spent Managing Pts Care (In Minutes): 46
[2023-09-12] MEDS: PANTOPRAZOLE INJ 80 MG in NA CHLORIDE 0.9% 250 ML IV SCH (23:45)
[2023-09-13 00:07] VITALS: BMI 30.7
[2023-09-13] MEDS: NA CHLORIDE 0.9% 1,000 ML IV SCH ×3 (00:22→22:04)
[2023-09-13] MEDS: PANTOPRAZOLE INJ 80 MG in NA CHLORIDE 0.9% 250 ML IV SCH ×3 (00:26→20:57)
[2023-09-13] MEDS ORDERED: METRONIDAZOLE 500mg IVPB 500 MG/100 ML BAG IV SCH (01:00)
[2023-09-13] MEDS: Levofloxacin500mg IV 500 MG/100 ML BAG IV SCH ×2 (01:23→23:13)
[2023-09-13] MEDS: METRONIDAZOLE 500mg IVPB 500 MG/100 ML BAG IV SCH ×3 (06:16→22:05)
[2023-09-13] MEDS ORDERED: NA CHLORIDE 0.9% 100 ML ONE (06:30)
--- NOTE | 2023-09-13 07:43 | P.PN ---
Date of Service: 09/13/23 Subjective: Reports 3 days of melena prior to admission, dark stool continues [place] stomach had been starting to swell up Denies abdominal pain, no hematemesis NPO for now, possible EGD / scope afebrile ROS: 10 point ROS as noted above, otherwise negative Physical Exam: GEN: Alert, oriented, NAD HEENT: Normal conjunctiva, sclera anicteric CV: Regular rate and rhythm, trace b/l pedal edema Pulm: Nonlabored respirations on room air, clear bilaterally ABD: Soft, nontender, nondistended Neuro: Normal speech, normal affect vitals reviewed Problem List: GI bleed / melena Diverticulosis h/o upper & lower GI bleeds h/o diverticulitis, s/p partial colectomy h/o CAD Hypertension Hyperlipidemia GI bleed / melena Diverticulosis h/o upper & lower GI bleeds h/o diverticulitis, s/p partial colectomy Pt with history of upper and lower GI bleed as well as PillCam. Reports 3 days of melena prior to admission. +Melena continued in ER. Denies any hematemesis. No abdominal pain CT abd (09/12): Thickening of the distal stomach mucosa and duodenal C-loop up to 17 mm. inflammation vs. ulceration Prominent diverticulosis coli involving majority of the colon without diverticulitis. suspect diverticular bleed given color / painless Stool studies pending. Blood cx obtained GI - Dr. Gamez consulted IV fluids while NPO possible EGD / scope today Continue PPI Continue empiric levaquin / flagyl (09/12-) afebrile, no leukocytosis Monitor H&H. Transfuse for hgb < 7. hgb 10.4 on admission. repeat pending PRN antiemetics h/o CAD Hypertension Hyperlipidemia confirm home medications, restart as appropriate VTE: SCD Code: Full Dispo: Home, 1-2 days Pending further work up / improvement
[2023-09-13 09:20] LABS: Bilirubin Total 0.7 mg/dL (0.2-1.0); Potassium 3.9 mEq/L (3.5-5.1); Protein, Total 5.9 g/dL (6.4-8.2)
[2023-09-13 09:24] LABS: Absolute Lymphocytes (CBC) 1.3 K/uL (0.7-4.9); Hematocrit 27.2 % (36.0-45.0); Lymphocytes % 36.4 % (15.3-44.8); MCV 101.7 fL (80-100); MPV 8.5 fL (7.6-11.3); Platelets 128 thou/uL (152-406); RBC Red Blood Cell Count 2.67 M/uL (3.86-4.86)
[2023-09-13 09:57] LABS: Magnesium 2.1 mg/dL (1.6-2.4); Phosphorus 2.5 mg/dL (2.5-4.9)
[2023-09-13] MEDS ORDERED: HEPARIN 500 UNIT/5 ML SYR IV ONE (10:31)
[2023-09-13] MEDS: METOCLOPRAMIDE 10 MG/2mL INJ IV SCH ×4 (11:00→18:15)
[2023-09-13] MEDS ORDERED: MAGNESIUM CITRATE 300 ML BOT PO ONE ×2 (13:00→19:00)
--- NOTE | 2023-09-13 13:37 | RAD REPORT ---
EXAM DESCRIPTION: NM - GI Blood Loss Imaging - 09/13/2023 12:17 pm CLINICAL HISTORY: GI bleed COMPARISON: None. TECHNIQUE: The patient was administered approximately 24.1 mCi Tc 99m labeled RBCs. Dynamic planar i maging of the abdomen pelvis was performed with time/activity curve generated. FINDINGS: Sequential flow images throughout the abdomen and pelvis revealed no abnormal fixed tracer accumulation to suggest active gastrointestinal bleeding. Normal flow pattern seen along the aorta a nd iliac bifurcation. Normal tracer accumulation in the bladder is noted within the first hour of brandee ging. The patient declined additional imaging beyond the first hour. IMPRESSION: Negative gastrointestinal bleeding study. No suspicious abnormalities.
[2023-09-13] MEDS ORDERED: GOLYTELY 4000 ML PO SCH (14:00)
[2023-09-13] MEDS: ACETAMINOPHEN 500 MG TAB PO PRN (14:35)
[2023-09-13] MEDS ORDERED: BISACODYL E.C. 5 MG TAB PO ONE (17:34)
[2023-09-13] MEDS ORDERED: GOLYTELY 4000 ML PO ONE (19:00)
[2023-09-13 22:05] LABS: Hematocrit 26.9 % (36.0-45.0)
[2023-09-14] MEDS: METOCLOPRAMIDE 10 MG/2mL INJ IV SCH ×2 (00:41→05:04)
[2023-09-14] MEDS: NA CHLORIDE 0.9% 1,000 ML IV SCH (05:00)
[2023-09-14] MEDS: METRONIDAZOLE 500mg IVPB 500 MG/100 ML BAG IV SCH ×3 (05:03→21:45)
[2023-09-14] MEDS: PANTOPRAZOLE INJ 80 MG in NA CHLORIDE 0.9% 250 ML IV SCH (05:04)
[2023-09-14 07:31] LABS: Hematocrit 26.5 % (36.0-45.0); MCV 101.7 fL (80-100); MPV 8.2 fL (7.6-11.3); Platelets 123 thou/uL (152-406)
[2023-09-14 07:38] LABS: Potassium 3.5 mEq/L (3.5-5.1)
[2023-09-14] MEDS ORDERED: EPINEPHRINE 1 MG/ML VIAL ONE (08:37)
[2023-09-14] MEDS ORDERED: Ringers Lactate 1,000 ML IV ONE (08:45)
[2023-09-14] MEDS ORDERED: SODIUM CHLORIDE 0.9% 10ML INJ IV PRN (10:32)
[2023-09-14] MEDS ORDERED: POTASSIUM 25 MEQ EFFERV TAB PO ONE (11:01)
--- NOTE | 2023-09-14 11:03 | P.PN ---
Date of Service: 09/14/23 Subjective: s/p EGD / colonoscopy no active bleeds seen noted gastritis, esophagitis, no diverticular bleed pt has not taken po since admission hgb slight decrease, but minimal overnight ROS: 10 point ROS as noted above, otherwise negative Physical Exam: GEN: Alert, oriented, NAD HEENT: Normal conjunctiva, sclera anicteric CV: Regular rate and rhythm, trace b/l pedal edema Pulm: Nonlabored respirations on room air, clear bilaterally ABD: Soft, nontender, nondistended Neuro: Normal speech, normal affect vitals reviewed Problem List: Gastritis, reflux esophagitis s/p EGD & colonoscopy (09/14) Skin tag, Diverticulosis, Medium Hiatal Hernia, internal hemorrhoids Melena h/o upper & lower GI bleeds h/o diverticulitis, s/p partial colectomy h/o CAD Hypertension Hyperlipidemia Gastritis, reflux esophagitis s/p EGD & colonoscopy (09/14) Diverticulosis, Medium Hiatal Hernia, internal hemorrhoids Melena h/o upper & lower GI bleeds h/o diverticulitis, s/p partial colectomy Pt with history of upper and lower GI bleed as well as PillCam. Reports 3 days of melena prior to admission. +Melena continued in ER. Denies any hematemesis. No abdominal pain CT abd (09/12): Thickening of the distal stomach mucosa and duodenal C-loop up to 17 mm. inflammation vs. ulceration Prominent diverticulosis coli involving majority of the colon without diverticulitis. Stool studies pending. Blood cx: NGTD GI bleed scan was negative 09/13 GI - Dr. Gamez consulted s/p EGD & colonoscopy on 09/14 which noted skin tag, gastritis, reflux esophagitis, diverticulosis, medium hiatal hernia, internal hemorrhoids. No active bleeding. suspect resolved diverticular bleed from right colon / TI with divertuclum as there was no active bleeding seen in EGD / colonoscopy recommends small bowel series and capsule endoscopy. Follow biopsies f/u GI clinic f Continue PPI Continue empiric levaquin / flagyl (09/12-) afebrile, no leukocytosis Monitor H&H. Transfuse for hgb < 7. hgb 9.2 -> 9.0 -> 8.8 (09/14) PRN antiemetics advance diet, monitor overnight, if h/h stable and tolerates PO intake, anticipate dc in am h/o CAD Hypertension Hyperlipidemia confirm home medications, restart as appropriate VTE: SCD Code: Full Dispo: Home, anticipate in AM stable h/h, advance diet
--- NOTE | 2023-09-14 11:41 | CON ---
Date of Consultation: 09/13/2023 Reason For Consultation: GI bleed with melena, hemoglobin down to 9.2. History Of Present Illness: The patient is a 68-year-old female with history of rec urrent diverticulitis with colon resection, hypertension, hyperlipidemia, coronary artery disease. Eddie shaw presented to hospital with the melena over the past 3 days prior to admission with multiple ep isodes in the emergency room prior to admission 2 to 4. Patient denies abdominal pain, nausea, vomit ing, fevers, chills, muscle aches, joint aches, backaches, diarrhea, constipation, change in weight. The patient does state that she and states that she was admitted to [facility], a couple of weeks ago. It appears at least a couple of weeks ago for similar problem. Bleeding spont aneously stopped then. The patient was discharged home. Patient is on 81 mg aspirin everyday. Allergies: TO PENICILLIN AND SULFA. Home Medications: Include losartan, Celebrex, gabapentin, Toprol that is metoprolol, albuterol inhal er, Tessalon Perles, prednisone, and baby aspirin everyday. Past Medical History: Significant for recurrent diverticulitis, status post colon resection, hyperte nsion, hyperlipidemia, coronary artery disease, neuropathy, thyroidectomy, hysterectomy, breast cyst resection, and heart cath. Family History: Father with the lung cancer. Mother with heart disease, lung disease, and stroke. Sister with hypertension and diabetes. Social History: . No tobacco. No alcohol. Lives at home with . Positive children. Physical Examination: General: Patient is lying in bed, in no acute distress. Vital Signs: Temperature of 97.9 degrees Fahrenheit, pulse 62, respirations 14, blood pressure 141/6 0, O2 saturation 97%. HEENT: Normocephalic, atraumatic. Anicteric. Pupils equal, round, and reactive to light. Extraocu lar movements are intact. Oropharynx clear. Neck: Supple. No masses. Respirations: Clear to auscultation bilaterally. Cardiac: Regular rate and rhythm. No gallops or rubs. Abdomen: Positive bowel sounds. Soft, nontender, nondistended, obese. Extremities: No clubbing, cyanosis, or edema. 2+ pulses. Neuro: Alert and oriented x3. Grossly nonfocal. 5/5 motor sensation. Sensation intact to light to uch. Laboratory Data: Patient has a white count of 3.7, hemoglobin 9.2, hematocrit of 27.2, MCV of 101.7, platelet count of 128, polys of 55%, lymphocytes 36%, monocytes 8%, eosinophils 0.5%, PT 14.2, INR o f 1.30, PTT of 42.8, sodium 144, potassium 3.9, chloride 113, bicarb 29, BUN of 8. Glucose 96, calci um 8.7, phosphorus 2.5, magnesium 2.1, total bilirubin 0.7, AST of 7, ALT of 12, alkaline phosphatase 50, total protein 5.9, albumin 3.0, lipase 24. UA; 3+ urobilinogen, trace amorphous crystals, other hassan negative. Serology; C diff negative yesterday. CT abdomen and pelvis revealed thickening of th e stomach, thickening of the C-loop measuring up to 1.7 cm suggesting inflammation or ulceration in t his region and that is in the antrum and first and second portion of the duodenum, it appears. Impression: 1.Gastrointestinal bleed with melena, which may be due to recurrent diverticular bleed or upper erasmo rointestinal source such as ulceration especially with abnormal CT scan revealing inflammation, thick ening of the antrum and the bulb in descending portions of the duodenum, possibly have an ulcer there as well as per CT report. 2.Anemia. Hemoglobin down to 9.2. 3.History of recurrent diverticulitis, status post colon resection, hypertension, hyperlipidemia, co ronary artery disease, neuropathy, thyroidectomy, hysterectomy, and the breast cyst surgical removal. 4.Abnormal CT revealing thickening and inflammation 1.7 cm in the antrum and first and second portio ns of the duodenum. Recommendations: 1.Continue PPI therapy. 2.IV fluids. 3.Keep n.p.o. 4.Continue serial H and H and transfuse p.r.n. 5.Proceed with EGD and colonoscopy. MINA/HAZEL Voice ID: [id number] Report ID: [id number]
--- NOTE | 2023-09-14 12:52 | RAD REPORT ---
EXAM DESCRIPTION: RAD - Small Bowel Series - 09/14/2023 12:41 pm CLINICAL HISTORY: GI BLEED, MELENA Abdominal pain COMPARISON: <Comparisons> FINDINGS: Light Cleaner film shows a nonspecific bowel gas pattern. No obstruction or free air. No suspiciou s calcifications. Gastric size and mucosal fold pattern are normal. Small hiatal hernia. No delay in transit of contras t into the small bowel. Small bowel is normal in diameter with no mucosal fold thickening. No intrins ic or extrinsic mass identifiable. Terminal ileum has normal appearance. Transit time to the colon is normal. No fluoroscopy was performed. Total images acquired: 10 IMPRESSION: Normal small bowel series.
[2023-09-14] MEDS ORDERED: POTASSIUM CL SA 10 MEQ TAB PO ONE (13:47)
[2023-09-14] MEDS ORDERED: PANTOPRAZOLE 40 MG INJ IVP SCH (21:00)
[2023-09-14] MEDS: Levofloxacin500mg IV 500 MG/100 ML BAG IV SCH (23:00)
[2023-09-14] MEDS: ACETAMINOPHEN 500 MG TAB PO PRN (23:05)
[2023-09-14 23:29] VITALS: O2SAT 98
[2023-09-15] MEDS: METRONIDAZOLE 500mg IVPB 500 MG/100 ML BAG IV SCH (05:28)
[2023-09-15 06:17] LABS: MCV 100.8 fL (80-100); MPV 8.6 fL (7.6-11.3); Platelets 128 thou/uL (152-406); RBC Red Blood Cell Count 2.67 M/uL (3.86-4.86)
[2023-09-15 06:25] LABS: Potassium 3.7 mEq/L (3.5-5.1)
--- NOTE | 2023-09-15 07:39 | P.DS ---
Admission Date: 09/12/23 Discharge Date: 09/15/23 Disposition: ROUTINE DISCHARGE Discharge Condition: GOOD Reason for Admission: GI bleeding Consultations: GI - Dr. Gamez Brief History of Present Illness: 68yo F, PMH: hypertension, hyperlipidemia, CAD, on aspirin 81 mg daily , history of GI bleed, previously had upper GI lower GI as well as PillCam., Also had diverticulosis and diverticulitis and subsequent partial colon resection, came into ER with melena. Patient noted to have melena 3 days ago. Patient had multiple episodes today even including in the ER. Denies any abdominal pain. No fever or chills. No sick contacts. While in the ER patient had 3 episodes [id number] with melena. Denies any hematemesis. No nausea or vomiting. Gastroenterology was consulted who proposing doing EGD and colonoscopy in morning. Hospital Course: Problem List: Gastritis, reflux esophagitis s/p EGD & colonoscopy (09/14) Skin tag, Diverticulosis, Medium Hiatal Hernia, internal hemorrhoids Melena, resolved h/o upper & lower GI bleeds h/o diverticulitis, s/p partial colectomy h/o CAD Hypertension Hyperlipidemia Patient presented with 3 days of ongoing melena including multiple episodes in ER. She has a history of upper and lower GI bleed and a history of diverticulitis with previous partial colectomy. CT abdomen noted thickening of the distal stomach mucosa and duodenal C-loop up to 17 mm, consistent with inflammation vs. ulceration. Also noted prominent diverticulosis coli involving majority of the colon without diverticulitis. A nuclear medicine bleeding scan was negative for any active bleed. GI was consulted. Hemoglobin was noted to be 10.4 on admission. Denies any hematemesis. No abdominal pain. Patient was started on PPI and had improvement of her symptoms. Patient was taken to OR on 09/14 for EGD / colonoscopy with Dr. Gamez which noted noted skin tag, mild gastritis, reflux esophagitis, diverticulosis, medium hiatal hernia, internal hemorrhoids. No active bleeding. Suspect melena secondary to resolved diverticular bleed from right colon or TI with divertuclum as there was no active bleeding seen in EGD / colonoscopy. Possibly from esophagitis/gastritis. Patient was feeling better, tolerating diet, melena resolved, hemoglobin remained stable in high 8s low 9s, and was deemed stable for discharge home. Recommend follow up in GI clinic in next few weeks. Hgb on discharge: 9.1. Advised to repeat blood work / CBC in ~1 week to monitor hgb. Dr. Gamez recommended follow up with plans for pill endoscopy in near future. Medications: Pantoprazole 40mg twice daily x 1 month, then 40mg daily - if symptoms permit. Discuss with Dr. Gamez / PCP Advised to avoid NSAIDs like ibuprofen / aleve. Okay to take tylenol Follow up: PCP 3-5 days GI clinic next few weeks Physical Exam: GEN: Alert, oriented, NAD HEENT: Normal conjunctiva, sclera anicteric CV: Regular rate and rhythm, trace b/l pedal edema Pulm: Nonlabored respirations on room air, clear bilaterally ABD: Soft, nontender, nondistended Neuro: Normal speech, normal affect Vital Signs/Physical Exam: Temp Pulse Resp BP Pulse Ox 97.2 F 71 16 145/72 H 99 09/15/23 04:00 09/15/23 04:00 09/15/23 04:00 09/15/23 04:00 09/15/23 04:00 Laboratory Data at Discharge: WBC 3.90 thou/uL (4.3-10.9) L 09/15/23 05:35 Hgb 9.1 g/dL (12.0-15.0) L 09/15/23 05:35 Hct 27.0 % (36.0-45.0) L 09/15/23 05:35 Plt Count 128 thou/uL (152-406) L 09/15/23 05:35 PT 14.2 SECONDS (9.5-12.5) H 09/12/23 17:50 INR 1.30 09/12/23 17:50 APTT 42.8 SECONDS (24.3-36.9) H 09/12/23 17:50 Sodium 141 mEq/L (136-145) 09/15/23 05:35 Potassium 3.7 mEq/L (3.5-5.1) 09/15/23 05:35 BUN 4 mg/dL (7-18) L 09/15/23 05:35 Creatinine 0.63 mg/dL (0.55-1.02) 09/15/23 05:35 Glucose 78 mg/dL (74-106) 09/15/23 05:35 Phosphorus 2.5 mg/dL (2.5-4.9) 09/13/23 08:34 Magnesium 2.0 mg/dL (1.6-2.4) 09/14/23 07:09 Total Bilirubin 0.7 mg/dL (0.2-1.0) 09/13/23 08:34 AST 7 U/L (15-37) L 09/13/23 08:34 ALT 12 U/L (13-56) L 09/13/23 08:34 Alkaline Phosphatase 50 U/L (45-117) 09/13/23 08:34 Lipase 24 U/L (13-75) 09/12/23 17:50 Home Medications: Metoprolol Succinate [Toprol Xl] 50 mg PO DAILY 02/15/20 Aspirin Chewable [Aspirin Chewable*] 1 tab PO DAILY 09/14/23 Atorvastatin Calcium 1 tab PO BEDTIME 09/14/23 Ferrous Gluconate 1 tab PO DAILY 09/14/23 Furosemide 1 tab PO BID 09/14/23 Gabapentin 1 tab PO BEDTIME 09/14/23 Gabapentin 1 tab PO BID 09/14/23 Hydroxychloroquine [Plaquenil*] 1 tab PO BID 09/14/23 Latanoprost Ophth [Xalatan 0.005%*] 1 gtt EACH EYE BEDTIME 09/14/23 Psyllium [Metamucil (Hydrocil)*] 1 packet PO BID 09/14/23 Sertraline HCl 1 tab PO DAILY 09/14/23 Valsartan 1 tab PO DAILY 09/14/23 Pantoprazole Sodium 40 mg PO BID 30 Days #60 tab 09/15/23 New Medications: Pantoprazole Sodium 40 mg PO BID 30 Days #60 tab Physician Discharge Instructions: Patient presented with 3 days of ongoing melena including multiple episodes in ER. She has a history of upper and lower GI bleed and a history of diverticulitis with previous partial colectomy. CT abdomen noted thickening of the distal stomach mucosa and duodenal C-loop up to 17 mm, consistent with inflammation vs. ulceration. Also noted prominent diverticulosis coli involving majority of the colon without diverticulitis. A nuclear medicine bleeding scan was negative for any active bleed. GI was consulted. Hemoglobin was noted to be 10.4 on admission. Denies any hematemesis. No abdominal pain. Patient was started on PPI and had improvement of her symptoms. Patient was taken to OR on 09/14 for EGD / colonoscopy with Dr. Gamez which noted noted skin tag, mild gastritis, reflux esophagitis, diverticulosis, medium hiatal hernia, internal hemorrhoids. No active bleeding. Suspect melena secondary to resolved diverticular bleed from right colon or TI with divertuclum as there was no active bleeding seen in EGD / colonoscopy. Possibly from esophagitis/gastritis. Patient was feeling better, tolerating diet, melena resolved, hemoglobin remained stable in high 8s low 9s, and was deemed stable for discharge home. Recommend follow up in GI clinic in next few weeks. Hgb on discharge: 9.1. Advised to repeat blood work / CBC in ~1 week to monitor hgb. Dr. Gamez recommended follow up with plans for pill endoscopy in near future. Medications: Pantoprazole 40mg twice daily x 1 month, then 40mg daily - if symptoms permit. Discuss with Dr. Gamez / PCP Advised to avoid NSAIDs like ibuprofen / aleve. Okay to take tylenol Follow up: PCP 3-5 days GI clinic next few weeks Followup: Willie GAMEZOT [Primary Care Provider] -
[2023-09-15 08:45] VITALS: BP 162/71; TEMP 98.5
[2023-09-15] MEDS ORDERED: POTASSIUM CL SA 10 MEQ TAB PO ONE (09:00)
== END 2023-09-15 11:12 | disposition home or self-care (01) | DRG 377 ==
LOC: ER 16:04 → ERHOLD 22:47 → 4TH 23:25
PROVIDERS: ADMIT Family Medicine; ATTEND Hospitalist
PROC: 0DB68ZX Excision of Stomach, Via Natural or Artificial Opening Endoscopic, Diagnostic (ICD-10-PCS; principal; 2023-09-14 09:00)
PROC: 0DB78ZX Excision of Stomach, Pylorus, Via Natural or Artificial Opening Endoscopic, Diagnostic (ICD-10-PCS; 2023-09-14 09:00)
DX: K57.31 Diverticulosis of large intestine without perforation or abscess with bleeding (principal); K21.01 Gastro-esophageal reflux disease with esophagitis, with bleeding; D62 Acute posthemorrhagic anemia; K29.41 Chronic atrophic gastritis with bleeding; I10 Essential (primary) hypertension; E78.00 Pure hypercholesterolemia, unspecified; D64.9 Anemia, unspecified; K64.8 Other hemorrhoids; L91.8 Other hypertrophic disorders of the skin; K44.9 Diaphragmatic hernia without obstruction or gangrene; I25.10 Atherosclerotic heart disease of native coronary artery without angina pectoris; F17.210 Nicotine dependence, cigarettes, uncomplicated; Z88.0 Allergy status to penicillin; Z88.2 Allergy status to sulfonamides; Z79.82 Long term (current) use of aspirin; Z90.49 Acquired absence of other specified parts of digestive tract; Z79.52 Long term (current) use of systemic steroids; Z79.899 Other long term (current) drug therapy; Z90.710 Acquired absence of both cervix and uterus
CPT/HCPCS: 36415; 74177; 74250; 78278; 80048; 80053; 81001; 83605; 83690; 83735; 84100; 85014; 85018; 85025; 85027; 85610; 85730; 86850; 86870; 86900; 86901; 87040; 87045; 87046; 87177; 87209; 87324; 87425; 88305; 88312; 99285; A9560; C9113; J0171; J0744; J1642; J2405; J2765; J7030; J7050; J7120; Q9967

== ENCOUNTER → 2023-11-02 | Emergency (ER) | payer OTHER ==
[~2023-11-02] MED LIST: CIPROFLOXACIN 400mg IV 400 MG/200 ML BAG IV ONE; METRONIDAZOLE 500mg IVPB 500 MG/100 ML BAG IV ONE; MORPHINE 4 MG/ML SYR ONE; NA CHLORIDE 0.9% 500 ML ONE; ONDANSETRON 4 MG/2 ML VIAL ONE
[2023-11-02 12:00] LABS: Absolute Lymphocytes (CBC) 1.7 K/uL (0.7-4.9); Hematocrit 31.2 % (36.0-45.0); Lymphocytes % 43.5 % (15.3-44.8); MCV 101.1 fL (80-100); Platelets 121 thou/uL (152-406); RBC Red Blood Cell Count 3.08 M/uL (3.86-4.86)
[2023-11-02 12:17] LABS: Albumin 3.3 g/dL (3.4-5.0); Bilirubin Total 0.9 mg/dL (0.2-1.0); Potassium 3.6 mEq/L (3.5-5.1); Protein, Total 6.5 g/dL (6.4-8.2)
--- NOTE | 2023-11-02 13:14 | RAD REPORT ---
EXAM DESCRIPTION: CTAbdomen Pelvis W Contrast - 11/02/2023 1:03 pm CLINICAL HISTORY: ABD PAIN COMPARISON: Abdomen Pelvis W Contrast dated 09/12/2023; Abdomen Pelvis W Contrast dated 3; Abdomen Pelvis W Contrast dated 11/16/2022; Abdomen Pelvis W Contrast dated 06/12/2019 TECHNIQUE: CT of the abdomen and pelvis was performed. All CT scans are performed using dose optimization technique as appropriate and may include automated exposure control or mA/KV adjustment according to patient size. FINDINGS: Lower chest: Mild circumferential thickened distal esophagus. Mild cardiomegaly. Coronary artery calcifications. Liver: Hypoattenuating lesion peripherally in the right hepatic lobe may be a hemangioma and is uncha nged. Biliary: No biliary ductal dilatation. Stomach: No significant focal abnormality. Duodenum: Moderate narrowing at the proximal duodenum again identified. Pancreas: No significant abnormality. Spleen: Unchanged low-density splenic lesion which is likely benign. Adrenal: No suspicious lesions. Kidney/ureter: No hydronephrosis. Punctate stone in lower pole left kidney. Retroperitoneum: No retroperitoneal adenopathy. Vascular: No aneurysm. Bowel: Diverticulosis without diverticulitis.. Partial colectomy. Peritoneum: No ascites or free air. Bladder: Grossly unremarkable. Reproductive: Hysterectomy. Bones: No acute fracture. Other: n/a IMPRESSION: Re- demonstrated thickening at the proximal duodenum which may reflect underlying duoden itis or peptic ulcer disease. No perforation. Endoscopy could better evaluate if clinically indicated .
--- NOTE | 2023-11-02 14:52 | EDPHYS ---
Physician Documentation [facility] Name: Toshia Armenta Age: 68 yrs Sex: Female : 1955 Arrival Date: 11/02/2023 Time: 11:01 Bed 7 Private MD: Maverick Torres ED Physician Shawn Campoverde HPI: 11/02 12:13 This 68 yrs old Black Female presents to ER via Ambulatory with complaints of Rectal rt Bleeding. 12:13 Patient with previous history of diverticular bleeds presents to the ED with rectal rt bleeding starting last night as well as a lower abdominal pain. She denies nausea, vomiting at this time. Denies other acute complaints, symptoms are moderate in severity, no other aggravating or elevating factors.. Historical: - Allergies: 11:05 PENICILLINS; aa5 11:05 Sulfa (Sulfonamide Antibiotics); aa5 - PMHx: 11:05 Anemia; coronary atherosclerosis; Diverticulitis; Hypercholesterolemia; Hypertension; aa5 nerve pain; 11:22 GI bleed; aa5 - Immunization history:: Adult Immunizations unknown. - Social history:: Smoking status: Patient/guardian denies using tobacco. - Family history:: not pertinent. ROS: 12:13 Constitutional: Negative for fever, chills, and weight loss, Cardiovascular: Negative rt for chest pain, palpitations, and edema, Respiratory: Negative for shortness of breath, cough, wheezing, and pleuritic chest pain, MS/Extremity: Negative for injury and deformity, Skin: Negative for injury, rash, and discoloration, Neuro: Negative for headache, weakness, numbness, tingling, and seizure, Psych: Negative for depression, anxiety, suicide ideation, homicidal ideation, and hallucinations, 12:13 Abdomen/GI: Positive for abdominal pain, rectal bleeding, Negative for nausea and vomiting, Exam: 12:13 Constitutional: This is a well developed, well nourished patient who is awake, alert, rt and in no acute distress. Head/Face: Normocephalic, atraumatic. Chest/axilla: Normal chest wall appearance and motion. Nontender with no deformity. No lesions are appreciated. Cardiovascular: Regular rate and rhythm with a normal S1 and S2. No gallops, murmurs, or rubs. Normal PMI, no JVD. No pulse deficits. Respiratory: Lungs have equal breath sounds bilaterally, clear to auscultation and percussion. No rales, rhonchi or wheezes noted. No increased work of breathing, no retractions or nasal flaring. Skin: Warm, dry with normal turgor. Normal color with no rashes, no lesions, and no evidence of cellulitis. MS/ Extremity: Pulses equal, no cyanosis. Neurovascular intact. Full, normal range of motion. Neuro: Awake and alert, GCS 15, oriented to person, place, time, and situation. Cranial nerves II-XII grossly intact. Motor strength 5/5 in all extremities. Sensory grossly intact. Cerebellar exam normal. Normal gait. Psych: Awake, alert, with orientation to person, place and time. Behavior, mood, and affect are within normal limits. 12:13 Abdomen/GI: Tenderness to the suprapubic region, no rebound, guarding, distention, Vital Signs: 11:05 BP 127 / 64; Pulse 62; Resp 19 S; Temp 98.4(O); Pulse Ox 98% on R/A; Weight 81.65 kg aa5 (R); Height 5 ft. 6 in. (R); 13:11 BP 136 / 68; Pulse 53; Resp 18; Pulse Ox 100% on R/A; ph 14:23 BP 133 / 59; Pulse 53; Resp 18; Pulse Ox 99% on R/A; ph 15:30 BP 119 / 54; Pulse 54; Resp 18; Pulse Ox 98% on R/A; ph 16:28 BP 129 / 58; Pulse 53; Resp 18; Temp 97.5; Pulse Ox 98% on R/A; ph 17:17 BP 127 / 59; Pulse 53; Resp 16; Pulse Ox 100% ; bp 11:05 Body Mass Index 29.05 (81.65 kg, 167.64 cm) aa5 MDM: 11:20 Patient medically screened. rt 15:04 Differential diagnosis: Diverticulitis, colitis, rectal bleeding. Data reviewed: vital rt signs, nurses notes, lab test result(s), radiologic studies. Consideration of Admission/Observation Escalation of care including admission/observation considered. Management of patient was discussed with the following: Equipment Coordinator: Discussed with Dr. Verdin, on-call for GI, states that he knows the patient, recommends the patient be transferred for interventional radiology procedure to stop the bleeding.. I considered the following discharge prescriptions or medication management in the emergency department Medications were administered in the Emergency Department. See MAR. Independent interpretation of the following test(s) in the Emergency Department CT Scan: My interpretation is No bowel obstruction some interpretation of CT scan images. Counseling: I had a detailed discussion with the patient and/or guardian regarding the historical points, exam findings, and any diagnostic results supporting the discharge/admit diagnosis, lab results, radiology results, the need to transfer to another facility. 11/02 11:28 Order name: CBC with Diff; Complete Time: 13:19 rt 11/02 11:28 Order name: CMP; Complete Time: 13:19 rt 11/02 11:28 Order name: Lipase; Complete Time: 13:19 rt 11/02 11:28 Order name: Type And Screen; Complete Time: 14:05 rt 11/02 12:39 Order name: Antibody Identification; Complete Time: 14:05 EDMS 11/02 11:28 Order name: CT Abd/Pelvis - IV Contrast Only; Complete Time: 13:19 rt 11/02 11:28 Order name: IV Saline Lock; Complete Time: 11:52 rt 11/02 11:28 Order name: Labs collected and sent; Complete Time: 11:52 rt Administered Medications: 11:52 Drug: NS 0.9% IV 500 ml IV at 1 bolus Per protocol; 1000 mL bolus Route: IV; Rate: 1 ph bolus; Site: left forearm; 17:18 Follow up: IV Status: Completed infusion; IV Intake: 500ml bp 11:52 Drug: Ondansetron IVP 4 mg IVP once; over 2 minutes Route: IVP; Site: left forearm; ph 17:18 Follow up: Response: No adverse reaction bp 11:52 Drug: morphine IVP or IV 4 mg IVP once over 4 mins Route: IVP; Infused Over: 4 mins; ph Site: left forearm; 17:18 Follow up: Response: No adverse reaction bp 11:59 Drug: Ciprofloxacin IVPB 400 mg 200 ml IVPB once over 60 mins Volume: 200 ml; Route: ph IVPB; Infused Over: 60 mins; Site: left forearm; 17:18 Follow up: IV Status: Completed infusion; IV Intake: 100ml bp 11:59 Drug: metroNIDAZOLE IVPB 500 mg 100 ml IVPB at 200 ml/hr once over 30 mins Volume: 100 ph ml; Route: IVPB; Rate: 200 ml/hr; Infused Over: 30 mins; Site: left forearm; 17:18 Follow up: IV Status: Completed infusion; IV Intake: 100ml bp Disposition Summary: 11/02/23 14:52 Transfer Ordered Notes: Transfer Location: [facility] rt Reason: Higher level of care rt Condition: Fair rt Problem: an ongoing problem rt Symptoms: are unchanged rt Accepting Physician: (11/02/23 17:29) bp Diagnosis - Rectal bleeding rt Forms: - Medication Reconciliation Form rt - SBAR form rt Signatures: Dispatcher [employer] Jazlyn Webb RN RN aa5 Ambar Escoto RN RN [place] RN RN bp Shawn Campoverde MD MD rt Corrections: (The following items were deleted from the chart) 17: 14:52 rt bp
--- NOTE | 2023-11-02 14:52 | ER ---
Nurse's Notes [facility] Name: Toshia Armenta Age: 68 yrs Sex: Female : 1955 Arrival Date: 11/02/2023 Time: 11:01 Bed 7 Private MD: Maverick Torres Diagnosis: Rectal bleeding Presentation: 11/02 11:05 Chief complaint: Patient states: blood in the stool since last night, pt reports her GI aa5 doctor is Dr. Gamez. 11:05 Coronavirus screen: At this time, the client does not indicate any symptoms associated aa5 with coronavirus-19. Ebola Screen: Patient denies travel to an Ebola-affected area in the 21 days before illness onset. Initial Sepsis Screen: Does the patient meet any 2 criteria? No. Patient's initial sepsis screen is negative. Does the patient have a suspected source of infection? No. Patient's initial sepsis screen is negative. Risk Assessment: Do you want to hurt yourself or someone else? Patient reports no desire to harm self or others. Onset of symptoms was November 01, 2023. 11:05 Acuity: CHARLI 3 aa5 11:05 Method Of Arrival: Ambulatory aa5 Historical: - Allergies: 11:05 PENICILLINS; aa5 11:05 Sulfa (Sulfonamide Antibiotics); aa5 - PMHx: 11:05 Anemia; coronary atherosclerosis; Diverticulitis; Hypercholesterolemia; Hypertension; aa5 nerve pain; 11:22 GI bleed; aa5 - Immunization history:: Adult Immunizations unknown. - Social history:: Smoking status: Patient/guardian denies using tobacco. - Family history:: not pertinent. Screenin:31 [facility] ED Fall Risk Assessment (Adult) History of falling in the last 3 months, ph including since admission No falls in past 3 months (0 pts) Confusion or Disorientation No (0 pts) Intoxicated or Sedated No (0 pts) Impaired Gait No (0 pts) Mobility Assist Device Used No (0 pt) Altered Elimination No (0 pt) Score/Fall Risk Level 0 - 2 = Low Risk Oriented to surroundings, Maintained a safe environment, Assessed \T\ reinforced patient's understanding of fall precautions, Provided non-skid footwear. Abuse screen: Denies threats or abuse. Denies injuries from another. Nutritional screening: No deficits noted. Tuberculosis screening: No symptoms or risk factors identified. Assessment: 12:00 General: Appears in no apparent distress. Behavior is calm, cooperative. Pain: ph Complains of pain in left lower quadrant. Neuro: Level of Consciousness is awake, alert, obeys commands, Oriented to person, place, time, situation. Cardiovascular: Capillary refill < 3 seconds in bilateral fingers Patient's skin is warm and dry. Respiratory: Airway is patent Respiratory effort is even, unlabored, Respiratory pattern is regular, symmetrical. GI: Abdomen is round non-distended, Reports lower abdominal pain, bloody stool. Derm: Skin is dry, Skin is normal, Skin temperature is warm. 14:00 Reassessment: Patient appears in no apparent distress at this time. Patient and/or ph family updated on plan of care and expected duration. Pain level reassessed. Patient is alert, oriented x 3, equal unlabored respirations, skin warm/dry/pink. Patient states feeling better. 15:29 Reassessment: Patient appears in no apparent distress at this time. Patient and/or ph family updated on plan of care and expected duration. Pain level reassessed. Patient is alert, oriented x 3, equal unlabored respirations, skin warm/dry/pink. Patient states feeling better. 16:30 Reassessment: Patient appears in no apparent distress at this time. Patient and/or ph family updated on plan of care and expected duration. Pain level reassessed. Patient is alert, oriented x 3, equal unlabored respirations, skin warm/dry/pink. Report called to NORMAN Garcia at [facility], awaiting EMS for transport, transfer form signed by pt Patient denies pain at this time. 17:17 Reassessment: EMS AT B/S FOR TRANSFER. bp Vital Signs: 11:05 BP 127 / 64; Pulse 62; Resp 19 S; Temp 98.4(O); Pulse Ox 98% on R/A; Weight 81.65 kg aa5 (R); Height 5 ft. 6 in. (R); 13:11 BP 136 / 68; Pulse 53; Resp 18; Pulse Ox 100% on R/A; ph 14:23 BP 133 / 59; Pulse 53; Resp 18; Pulse Ox 99% on R/A; ph 15:30 BP 119 / 54; Pulse 54; Resp 18; Pulse Ox 98% on R/A; ph 16:28 BP 129 / 58; Pulse 53; Resp 18; Temp 97.5; Pulse Ox 98% on R/A; ph 17:17 BP 127 / 59; Pulse 53; Resp 16; Pulse Ox 100% ; bp 11:05 Body Mass Index 29.05 (81.65 kg, 167.64 cm) aa5 ED Course: 11:03 Patient arrived in ED. rg4 11:04 Maverick Torres MD is Private Physician. rg4 11:04 Shawn Campoverde MD is Attending Physician. rt 11:05 Arm band placed on Patient placed in an exam room, on a stretcher. aa5 11:06 [place], NORMAN is Primary Nurse. bp 11:21 Triage completed. aa5 11:32 Patient has correct armband on for positive identification. Placed in gown. Bed in low ph position. Call light in reach. Side rails up X 1. Pulse ox on. NIBP on. 12:00 Type And Screen Sent. ph 12:00 CMP Sent. ph 12:00 CBC with Diff Sent. ph 12:00 Lipase Sent. ph 12:00 Initial lab(s) drawn, by me, sent to lab. Missed attempt(s): 20 gauge in right forearm. ph Bleeding controlled, band aid applied, catheter tip intact. Inserted saline lock: 22 gauge in left forearm, using aseptic technique. 13:05 CT Abd/Pelvis - IV Contrast Only In Process Unspecified. EDMS 14:28 No provider procedures requiring assistance completed. Patient admitted, IV remains in ph place. 14:43 initiated a transfer with Kate Germain from the [facility] Transfer [facility]. eb 15:21 connected the hospitalist prior authorization nurse for [facility] with Dr. Campoverde for patient eb consultation. 15:30 administrative approval given by Kate Jj / patient has been accepted to [facility] 16T [id number]/ Dr. Elizabeth De Souza has accepted the patient in transfer/ report to be called to [phone]. Administered Medications: 11:52 Drug: NS 0.9% IV 500 ml IV at 1 bolus Per protocol; 1000 mL bolus Route: IV; Rate: 1 ph bolus; Site: left forearm; 17:18 Follow up: IV Status: Completed infusion; IV Intake: 500ml bp 11:52 Drug: Ondansetron IVP 4 mg IVP once; over 2 minutes Route: IVP; Site: left forearm; ph 17:18 Follow up: Response: No adverse reaction bp 11:52 Drug: morphine IVP or IV 4 mg IVP once over 4 mins Route: IVP; Infused Over: 4 mins; ph Site: left forearm; 17:18 Follow up: Response: No adverse reaction bp 11:59 Drug: Ciprofloxacin IVPB 400 mg 200 ml IVPB once over 60 mins Volume: 200 ml; Route: ph IVPB; Infused Over: 60 mins; Site: left forearm; 17:18 Follow up: IV Status: Completed infusion; IV Intake: 100ml bp 11:59 Drug: metroNIDAZOLE IVPB 500 mg 100 ml IVPB at 200 ml/hr once over 30 mins Volume: 100 ph ml; Route: IVPB; Rate: 200 ml/hr; Infused Over: 30 mins; Site: left forearm; 17:18 Follow up: IV Status: Completed infusion; IV Intake: 100ml bp Medication: 11:32 VIS not applicable for this client. ph Intake: 17:18 IV: 100ml; Total: 100ml. bp 17:18 IV: 100ml; Total: 200ml. bp 17:18 IV: 500ml; Total: 700ml. bp Outcome: 14:52 ER care complete, transfer ordered by . rt 16:30 Condition: stable ph 17:17 Transferred by ground EMS to [facility], Transfer form completed. bp 17:17 Instructed on the need for admit, 17:29 Patient left the ED. bp Signatures: Dispatcher [employer] EDMS Jazlyn Melendez RN RN aa5 Ambar Escoto RN RN ph Agnes Leonard4 [place] RN RN bp Botello, Elizabeth eb [place], Ryan, MD MD rt
[2023-11-02 20:53] VITALS: TEMP 97.5
[2023-11-02 21:10] VITALS: BP 127/59; O2SAT 100
== END ==
LOC: ER 11:01
DX: K62.5 Hemorrhage of anus and rectum (principal); R10.30 Lower abdominal pain, unspecified; Z88.0 Allergy status to penicillin; Z88.2 Allergy status to sulfonamides
CPT/HCPCS: 85025; 36415; 86900; 86850; 86870; 86901; 83690; 80053; 74177; Q9967; J2405; J0744; J7040

== ENCOUNTER 2023-12-23 05:30 | Observation (INO) | payer OTHER ==
[2023-12-19 09:57] LABS: Absolute Lymphocytes (CBC) 1.7 K/uL (0.7-4.9); Absolute Monocytes 0.3 K/uL (0.1-1.3); Absolute Neutrophil 1.6 K/uL (1.8-8.0); Basophils % 0.8 % (0-1.3); Eosinophils % 0.6 % (0-4.4); Hematocrit 35.6 % (36.0-45.0); Lymphocytes % 46.8 % (15.3-44.8); MCH 33.5 pg (27.0-35.0); MCHC 33.7 g/dL (32.0-36.0); MCV 99.5 fL (80-100); MPV 8.4 fL (7.6-11.3); Monocytes % 8.9 % (3.3-12.3); Neutrophils % 42.9 % (41.7-73.7); Nucleated Red Blood Cells % 0.1 % (0-0); Platelets 141 thou/uL (152-406); RBC Red Blood Cell Count 3.58 M/uL (3.86-4.86); Red Cell Distribution Width 13.5 % (12.1-15.2)
[2023-12-19 10:01] LABS: Specific Gravity 1.005 (1.005-1.030); Urine Bilirubin NEGATIVE (Negative); Urine Blood Negative (Negative); Urine Clarity Clear (Clear); Urine Color Colorless (Yellow); Urine Glucose NEGATIVE (Negative); Urine Ketones NEGATIVE (Negative); Urine Microscopic Reflex YN NO UMIC; Urine Nitrite NEGATIVE (Negative); Urine Protein NEGATIVE (Negative); Urine Urobilinogen Normal (Normal); Urine pH 6.5 (5.0-7.0)
[2023-12-19 10:10] LABS: PTT, Activated Partial Thromb 44.4 SECONDS (24.3-36.9); Protime INR 1.19
[2023-12-19 10:18] LABS: Blood Morphology Comment NOT SEEN (NOT SEEN); Differential Total Cells Count 100; Eosinophils 1 % (0-3); Lymphocytes 50 % (15-42); Monocytes 11 % (0-10); Platelet Estimate ADEQ; Segmented Neutrophils 37 % (40-80)
[2023-12-19 10:30] LABS: Albumin 3.7 g/dL (3.4-5.0); Albumin/Globulin Ratio 1.1 (1.1-1.8); Anion Gap 7.6 mEq/L (5.0-15.0); Bilirubin Total 0.9 mg/dL (0.2-1.0); Globulin 3.5 g/dL (2.3-3.5); Potassium 3.6 mEq/L (3.5-5.1); Protein, Total 7.2 g/dL (6.4-8.2)
[2023-12-23] MEDS: Ringers Lactate 1,000 ML IV ONE (06:10)
[2023-12-23] MEDS: Oxycodone HCl/Acetaminophen 5/325 MG TAB ONE (06:15)
[2023-12-23] MEDS: CELECOXIB 100 MG CAPSULE ONE (06:15)
[2023-12-23] MEDS: ACETAMINOPHEN 500 MG TAB ONE (06:15)
[2023-12-23] MEDS: GABAPENTIN 100 MG CAP ONE (06:15)
[2023-12-23] MEDS: dexAMETHasone 10 MG/ML VIAL ONE (06:18)
[2023-12-23] MEDS: EPINEPHRINE 1 MG/ML VIAL ONE (06:19)
[2023-12-23] MEDS: FENTANYL CITR 100 MCG/2 ML ONE (06:19)
[2023-12-23] MEDS: MIDAZOLAM HCL 2 MG/2 ML INJ ONE (06:20)
[2023-12-23] MEDS: DEXMEDETOMIDINE HCL 200 MCG/2 ML VIAL ONE (06:20)
[2023-12-23] MEDS: BUPIVACAINE 0.5% PF 10 ML VIAL ONE (06:20)
[2023-12-23] MEDS: LIDOCAINE 1% MPF 2 ML AMPULE ONE (06:21)
[2023-12-23] MEDS: BUPIVACAINE 0.25% PF 30 ML VIAL ONE (06:21)
[2023-12-23] MEDS: MAGNESIUM SULFATE 1 gm IVPB 1 GM/100 ML BAG IV ONE (06:21)
[2023-12-23] MEDS: TRANEXAMIC ACID 1,000 MG/10 ML VIAL IV ONE ×2 (06:24)
[2023-12-23] MEDS ORDERED: propofoL 200 MG/20 ML VIAL IV ONE (07:05)
[2023-12-23] MEDS ORDERED: LIDOCAINE 1% MPF 5 ML VIAL ONE ×2 (07:05→07:21)
[2023-12-23] MEDS: CEFAZOLIN SODIUM 2 GM/VIAL ONE (07:05)
[2023-12-23] MEDS ORDERED: dexAMETHasone 4 MG/ML VIAL ONE (07:19)
[2023-12-23] MEDS ORDERED: KETOROLAC 30 MG/ML INJ ONE (07:20)
[2023-12-23] MEDS ORDERED: ONDANSETRON 4 MG/2 ML VIAL ONE (07:20)
[2023-12-23] MEDS ORDERED: KETAMINE HCL IN 0.9 % NACL 50 MG/5 ML SYRINGE IV ONE (07:21)
[2023-12-23] MEDS ORDERED: ONDANSETRON 4 MG/2 ML VIAL IV PRN (09:06)
--- NOTE | 2023-12-23 09:09 | P.BOP ---
Preoperative diagnosis: left knee arthritis Postoperative diagnosis: same Estimated blood loss: 50 ccs Anesthesia: General Transferred to: Recovery Room Condition: Good
--- NOTE | 2023-12-23 09:53 | OP ---
Date of Procedure: 12/23/2023 Surgeon: Abbe Mackay MD Preoperative Diagnosis: Left knee arthritis, which is severe. Preoperative Diagnosis: Left knee arthritis, which is severe. Procedure: Left total knee arthroplasty. Estimated Blood Loss: 50 mL. Complications: There were no complications. The system used is the [email or web address] System. Indications For Operation: Ms. Armenta is a 68-year-old female, who unfortunately has trouble with lef t knee osteoarthritis for some time. This persists despite extensive conservative care. She has had a previous right total knee arthroplasty and done well and risks, benefits, and alternatives of tota l knee arthroplasty have been discussed with her. She states she understands things as presented and wished to proceed. She does have a block in the holding area. Description Of Procedure: The patient was taken to the operating, placed in supine position. Genera l anesthesia was easily obtained by the Anesthesia staff. Following this, a well-padded tourniquet w as placed on the superior left thigh. Left lower extremity was then prepped and draped in usual ster ile fashion for procedure. Following this, the leg was then elevated, exsanguinated, and knee was be nt and tourniquet was raised. Following this, a standard anterior incision was taken down carefully through skin only. Meticulous hemostasis being maintained using Bovie electrocautery. This leads to the appropriate level, which was then exploited allowing for exposure of the extensor mechanism. A dioni was made along the projected medial parapatellar arthrotomy as well as the superior medial porti on of the patella. A standard medial parapatellar arthrotomy was then performed with liberation of a pproximately 30 mL of rather normal-appearing synovial fluid. Following this, the medial and lateral menisci as well as the ACL was resected. The ACL appears to be very small and may actually have bee n torn prior to the procedure. The knee was examined and found to have [id number] changes of the m edial compartment as well as some changes to the lateral compartment. An intramedullary alignment gu jayna was then used and a distal cut was made, it was then sized to a size 65, which was the same size she had on the contralateral side. The remainder of the femoral cuts with the exception of a box wer e then performed. After this, attention was then turned to the tibia and protection was used as a st andard tibial cut was made. The knee was then trialed and found to come to full extension, full flex ion, and appears to be balanced in both flexion and extension. After this, the patella was calipered and cut for a size 28. The tibia was then punched and the box was cut and the surfaces were prepped for cementation. Vacuum-assisted cementation was performed on the back table and the final componen ts with the exception of the tibial polyethylene were then placed. The trial polyethylene was placed while the cement hardened with removal of any unsupported cement. Following this, it was brought th rough range of motion, the patella tacked ideally. It appears to be stable with good flexion, extens ion, and balanced in both flexion and extension. After this, the final polyethylene is selected and the locking bar was placed. The wound was copiously irrigated and the extensor mechanism was then re paired using heavy Ethibond sutures, was again irrigated. Skin was closed using Vicryl sutures follo wed by uziel. The patient was then placed in a well-padded sterile dressing, awakened, and taken t o the recovery room in good condition. There were no complications. SE/MODL Voice ID: [id number] Report ID: [id number]
[2023-12-23] MEDS: HYDROMORPHONE HCL 1 MG/ML INJ ONE (09:54)
[2023-12-23 13:29] VITALS: BMI 29.5
--- NOTE | 2023-12-23 13:31 | P.CNS ---
Date of Consult: 12/23/23 Reason for Consult: Medical management Chief Complaint: Medical management, Left total knee arthroplasty History of Present Illness: Toshia Armenta is a 68-year-old female with past medical history anemia, coronary atherosclerosis, Diverticulitis, Hypercholesterolemia, Hypertension, nerve pain, and GI bleed admitted to the hospital for a left total knee arthroplasty by Dr. Mackay. Dr. Mackay requested medical management by hospitalist team. Allergies Penicillins Allergy (Intermediate, Verified 12/23/23 07:02) Shortness of breath Sulfa (Sulfonamide Antibiotics) Allergy (Verified 12/23/23 07:02) Itching Home Medications: Atorvastatin Calcium 40 mg PO BEDTIME 12/19/23 Famotidine 40 mg PO DAILY 12/19/23 Ferrous Gluconate 324 mg PO DAILY 12/19/23 Furosemide [Lasix] 20 mg PO BID 12/19/23 Gabapentin 300 mg PO TID 12/19/23 Hydroxychloroquine [Plaquenil*] 200 mg PO BID 12/19/23 Latanoprost Ophth [Xalatan 0.005%*] 1 drop EACH EYE BEDTIME 12/19/23 Metoprolol Succinate [Toprol Xl*] 50 mg PO DAILY 12/19/23 Sertraline [Zoloft*] 50 mg PO DAILY 12/19/23 Valsartan [Diovan*] 160 mg PO DAILY 12/19/23 - Past Medical/Surgical History Diabetic: No -: diverticulitis -: AMY -: CAD -: Rheumatoid arthritis -: HTN -: Hiatal hernia -: Glaucoma -: thyroid CA -: anxiety -: thyroidectomy -: hysterectomy -: colon resection -: heart cath -: cyst removal from breast (benign) Psychosocial/ Personal History: Patient lives at home with her . - Family History Father Medical History: Lung disease, Cancer Mother Medical History: Heart disease, Lung disease, Stroke Sister Medical History: Hypertension, Diabetes - Social History Smoking Status: Current every day smoker Alcohol use: No CD- Drugs: No Caffeine use: Yes Place of Residence: Home Review of Systems Musculoskeletal: Leg Pain (Left knee pain) Physical Examination Temp Pulse Resp BP Pulse Ox 97.6 F 56 16 120/56 L 12/23/23 09:16 12/23/23 12:06 12/23/23 12:06 12/23/23 12:06 General: Alert, In no apparent distress, Oriented x3 HEENT: Atraumatic, Normocephalic, PERRLA Neck: Supple, 2+ carotid pulse no bruit, JVD not distended Respiratory: Clear to auscultation bilaterally, Normal air movement Cardiovascular: Normal pulses, Regular rate/rhythm, Normal S1 S2 Capillary refill: <2 Seconds Gastrointestinal: Normal bowel sounds, Soft and benign, Non-distended, No tenderness Musculoskeletal: Other (dressing to left knee, 2 + peripheral pulses) Neurological: Normal speech, Normal tone Conclusions/Impression: Assessment and plan Left Total knee arthroplasty Left knee arthritis Rheumatoid arthritis management by orthopedic, Dr. Mackay Pain control PT perioperative antibiotics History of anemia History of GI bleed Monitor H&H Transfuse as needed History of nerve pain History hypertension Restart home medications when available History of diverticulitis History of coronary atherosclerosis Supportive care Follow-up as outpatient DVT PPx per orthopedic Full code LOS 2 to 3 days Time Spent Managing Pts care (In Minutes): 50
[2023-12-23] MEDS: HYDROCODONE/APAP 7.5/325 MG TAB PO PRN (15:20)
[2023-12-23] MEDS ORDERED: HYDRALAZINE HCL 20 MG/ML VIAL IV PRN (17:23)
[2023-12-23] MEDS: CEFAZOLIN 1 GM in NA CHLORIDE 0.9% 50 ML IVPB SCH (17:51)
[2023-12-24] MEDS: DOCUSATE NA 100 MG CAP PO PRN (01:32)
[2023-12-24] MEDS: ENOXAPARIN 30 MG/0.3 ML SQ SCH (06:08)
[2023-12-24 08:02] LABS: Absolute Lymphocytes (CBC) 1.4 K/uL (0.7-4.9); Absolute Monocytes 0.7 K/uL (0.1-1.3); Absolute Neutrophil 6.5 K/uL (1.8-8.0); Basophils % 0.4 % (0-1.3); Hemoglobin 9.7 g/dL (12.0-15.0); MCH 33.6 pg (27.0-35.0); MCHC 33.6 g/dL (32.0-36.0); MCV 100.2 fL (80-100); MPV 8.7 fL (7.6-11.3); Monocytes % 7.6 % (3.3-12.3); Platelets 124 thou/uL (152-406); RBC Red Blood Cell Count 2.89 M/uL (3.86-4.86); Red Cell Distribution Width 13.7 % (12.1-15.2)
[2023-12-24 08:14] LABS: Anion Gap 5.8 mEq/L (5.0-15.0); Magnesium 1.9 mg/dL (1.6-2.4); Phosphorus 3.5 mg/dL (2.5-4.9); Potassium 3.8 mEq/L (3.5-5.1)
[2023-12-24 09:43] VITALS: O2SAT 97
--- NOTE | 2023-12-24 11:33 | P.DS ---
Admission Date: 12/23/23 Discharge Date: 12/24/23 Disposition: DC HOME/HOME HEALTH CARE Discharge Condition: GOOD Reason for Admission: Medical management, Left knee arthroplasty Brief History of Present Illness: Diagnosis Left Total knee arthroplasty Left knee arthritis Rheumatoid arthritis History of anemia History of GI bleed History of nerve pain History hypertension History of diverticulitis History of coronary atherosclerosis 12/23/23 Toshia Armenta is a 68-year-old female with past medical history anemia, coronary atherosclerosis, Diverticulitis, Hypercholesterolemia, Hypertension, nerve pain, and GI bleed admitted to the hospital for a left knee arthroplasty by Dr. Mackay. Dr. Mackay requested medical management by hospitalist team. Vital Signs/Physical Exam: Temp Pulse Resp BP Pulse Ox 97.8 F 65 18 114/57 L 97 12/24/23 08:00 12/24/23 08:00 12/24/23 08:57 12/24/23 08:00 12/24/23 08:57 Laboratory Data at Discharge: WBC 8.60 thou/uL (4.3-10.9) 12/24/23 07:46 Hgb 9.7 g/dL (12.0-15.0) L 12/24/23 07:46 Hct 29.0 % (36.0-45.0) L 12/24/23 07:46 Plt Count 124 thou/uL (152-406) L 12/24/23 07:46 PT 13.0 SECONDS (9.5-12.5) H 12/19/23 09:42 INR 1.19 12/19/23 09:42 APTT 44.4 SECONDS (24.3-36.9) H 12/19/23 09:42 Sodium 140 mEq/L (136-145) 12/24/23 07:46 Potassium 3.8 mEq/L (3.5-5.1) 12/24/23 07:46 BUN 17 mg/dL (7-18) 12/24/23 07:46 Creatinine 0.81 mg/dL (0.55-1.02) 12/24/23 07:46 Glucose 109 mg/dL (74-106) H 12/24/23 07:46 Phosphorus 3.5 mg/dL (2.5-4.9) 12/24/23 07:46 Magnesium 1.9 mg/dL (1.6-2.4) 12/24/23 07:46 Total Bilirubin 0.9 mg/dL (0.2-1.0) 12/19/23 09:42 AST 11 U/L (15-37) L 12/19/23 09:42 ALT 14 U/L (13-56) 12/19/23 09:42 Alkaline Phosphatase 60 U/L (45-117) 12/19/23 09:42 Home Medications: Atorvastatin Calcium 40 mg PO BEDTIME 12/19/23 Famotidine 40 mg PO DAILY 12/19/23 Ferrous Gluconate 324 mg PO DAILY 12/19/23 Furosemide [Lasix] 20 mg PO BID 12/19/23 Gabapentin 300 mg PO TID 12/19/23 Hydroxychloroquine [Plaquenil*] 200 mg PO BID 12/19/23 Latanoprost Ophth [Xalatan 0.005%*] 1 drop EACH EYE BEDTIME 12/19/23 Metoprolol Succinate [Toprol Xl*] 50 mg PO DAILY 12/19/23 Sertraline [Zoloft*] 50 mg PO DAILY 12/19/23 Valsartan [Diovan*] 160 mg PO DAILY 12/19/23 Physician Discharge Instructions: Toshia Armenta admitted to the hospital for left total knee arthroplasty with Dr. Mackay. She has successfully walked with physical therapy and will continue physical therapy at home with [facility]. Pain medication and anticoagulant has been ordered and sent to your pharmacy per Dr. Mackay. Follow-up with Dr. Mackay in 2 weeks. 1. Please call and schedule a follow-up appointment with your PCP in 3-5 days - Please follow-up with your PCP for medication refills/adjustments 2. Please call and schedule a follow-up appointment with Dr. Mackay in 2 weeks or sooner if having problems. 3. Continue regular diet 4. Fall precuations as you recover and work with home health physical therapy. 5. Return to the ED if needed Home Health arranged: [facility] P:[phone] F:[phone] Diet: Regular Activity: Fall precautions Followup: Abbe Mackay MD [ACTIVE - CAN ADMIT] - 1-2 Weeks (Call for appointment) Maverick Torres MD [Primary Care Provider] - 2-3 Days
[2023-12-24 15:53] VITALS: BP 128/59; TEMP 97.4
== END 2023-12-24 14:08 | disposition home health service (06) ==
LOC: OR 05:30 → 2ND 09:06 → 4TH 11:28 → UNDODISOB 11:30
PROVIDERS: ADMIT Orthopaedic Surgery; ATTEND Orthopaedic Surgery
PROC: 0SRD069 Replacement of Left Knee Joint with Oxidized Zirconium on Polyethylene Synthetic Substitute, Cemented, Open Approach (ICD-10-PCS; principal; 2023-12-23 07:00)
DX: M17.12 Unilateral primary osteoarthritis, left knee (principal); D64.9 Anemia, unspecified; I25.10 Atherosclerotic heart disease of native coronary artery without angina pectoris; E78.00 Pure hypercholesterolemia, unspecified; I10 Essential (primary) hypertension; Z88.0 Allergy status to penicillin; Z88.2 Allergy status to sulfonamides; F17.210 Nicotine dependence, cigarettes, uncomplicated
CPT/HCPCS: 85025 ×2; 80048; 36415 ×2; 83735; 84100; 85610; 88305; 88311; 85730; 81003; 80053; 97116 ×2; 97139; 97161; 97530 ×2; 94010; 27447; J3475; J2704; J1100 ×2; J2001 ×2; J1650; J2250; J3010; J0171; J1170; J2405; J7120; J0690 ×3; C1776 ×2; G0378; G0379